=== PATIENT | male | born 1990 | race Two or more races ===

== ENCOUNTER 2023-11-29 11:20 | Outpatient (CLI) | payer SELFPAY ==
[2023-11-29 18:46] LABS: Basophils # 0.1 K/mm3 (0-0.2); Basophils % 1.1 % (0.1-2.0); Eosinophils # 0.1 K/mm3 (0.0-0.4); Eosinophils % 2.1 % (0.1-12.0); Hematocrit 38.9 % (42.0-52.0); Hemoglobin 12.4 g/dL (14.1-18.0); Lymphocytes # 1.2 K/mm3 (0.7-4.5); Lymphocytes % 19.3 % (10-50); Mean Corpuscular HGB Conc 31.7 g/dL (31.8-35.4); Mean Corpuscular Hemoglobin 31.3 pg (27.0-31.2); Mean Corpuscular Volume 98.8 fl (80-94); Mean Platelet Volume 9.1 fl (7.4-10.4); Monocytes # 0.6 K/mm3 (0.1-1.0); Monocytes % 9.5 % (1.7-9.3); Neutrophils # 4.4 K/mm3 (1.8-7.8); Neutrophils % 67.9 % (37.0-80.0); Platelet Count 175 K/mm3 (142-424); Red Blood Count 3.94 M/mm3 (4.60-6.20); Red Cell Distribution Width 14.2 % (11.5-17.5); White Blood Count 6.4 K/mm3 (4.8-10.8)
[2023-11-29 18:50] LABS: Chloride 100 mmol/L (98-107); Potassium 3.4 mmoL/L (3.5-5.1); Sodium 132 mmol/L (136-145)
[2023-11-29 18:53] LABS: Alanine Aminotransferase 43 U/L (12-78); Albumin Level 2.9 g/dl (3.5-5.0); Albumin/Globulin Ratio 0.7 (1.1-1.8); Alkaline Phosphatase 305 U/L (38-126); Anion Gap 12.4 mEq/L (5-15); Aspartate Amino Transferase 89 U/L (17-59); Bilirubin,Total 0.3 mg/dl (0.2-1.3); Blood Urea Nitrogen 3 mg/dl (9-20); Calcium 8.3 mg/dl (8.4-10.2); Carbon Dioxide 23 mmol/L (22.0-30.0); Estimated Glomerular Filt Rate 249 ml/min (>60); GFR (African American) 302 ML/MIN (>60); Globulin 3.9 g/dL (1.3-3.2); Glucose 376 mg/dl (74-100); Total Protein,Serum 6.8 g/dl (6.3-8.2)
[2023-11-29 19:28] LABS: Erythrocyte Sedimentation Rate 68 mm/hr (0-15)
[2023-11-30 09:22] LABS: Hemoglobin A1C 11.5 % (4.0-6.0)
== END 2023-12-01 23:59 | disposition home or self-care (01) ==
PROVIDERS: Podiatrist; PCP Nurse Practitioner; Visit Provider Nurse Practitioner
DX: E11.621 Type 2 diabetes mellitus with foot ulcer (principal); L97.529 Non-pressure chronic ulcer of other part of left foot with unspecified severity; B37.9 Candidiasis, unspecified
CPT/HCPCS: 80053; 83036; 85025; 85651; 86140; 87070; 87205

== ENCOUNTER 2023-11-30 09:39 | Outpatient (CLI) | payer SELFPAY ==
--- NOTE | 2023-11-30 09:48 | XR_ITS ---
FINAL REPORT CLINICAL HISTORY: L DFU, R comparsion COMPARISON: None FINDINGS: RIGHT FOOT: Three views of the right foot were obtained. There is no acute fracture or dislocation. There is mild degenerative change present in the right foot. There are chronic fractures with callus formation in the distal second and third metatarsals. There is severe osteopenia of the distal phalanges of the first and third toes. A pes planus deformity is present. Vascular calcifications are present. IMPRESSION: Chronic fractures with callus formation in the distal second and third metatarsals. Severe osteopenia of the distal phalanges of the first and third toes. Reviewed, Interpreted and Dictated by Nabil Ngo III, MD Transcribed by Debby Salas Authenticated and [facility]
--- NOTE | 2023-11-30 09:48 | XR_ITS ---
FINAL REPORT CLINICAL HISTORY: DFU COMPARISON: None FINDINGS: LEFT FOOT: Three views of the left foot were obtained. There is soft tissue swelling involving the great toe. There is questionable erosion of the distal phalanx of the great toe, as well as marked osteopenia. Osteomyelitis is not excluded, and MRI is suggested for further evaluation as indicated. Vascular calcifications are present. A pes planus deformity is identified. IMPRESSION: Questionable erosion of the distal phalanx of the great toe, difficult to visualize as the patient also has severe osteopenia. Osteomyelitis is not excluded, and MRI is suggested for further evaluation as clinically indicated. Reviewed, Interpreted and Dictated by Nabil Ngo III, MD Transcribed by Debby Salas Authenticated and . [facility]
== END 2023-11-30 23:59 | disposition home or self-care (01) ==
PROVIDERS: Visit Provider Podiatrist
DX: E11.621 Type 2 diabetes mellitus with foot ulcer (principal); L97.529 Non-pressure chronic ulcer of other part of left foot with unspecified severity; L03.116 Cellulitis of left lower limb
CPT/HCPCS: 73630; 87070; 87205

== ENCOUNTER 2024-06-09 13:53 | Emergency (ER) | payer SELFPAY ==
[2024-06-09] VITALS (8 sets, daily range): BP systolic 89–126; BP diastolic 61–93; PULSE 103–116; RESP 15–22; TEMP 36.9; O2SAT 97–100; BMI 26.4
[2024-06-09] MEDS: LACTATED RINGERS 1000ML 1,570 ML 785 ML IV (14:00)
--- NOTE | 2024-06-09 14:20 | HMH.EDGENADL ---
Discharge Plan Disposition Patient Disposition: Xfer Short-Term Hosp Condition: Critical Prescriptions Prescriptions: No Action insulin NPH and regular human 100 unit/mL (70-30) cartridge 25 unit SQ USEASDIRECTD Patient Comments: pt takes 25 units in am and 25 units before dinner Ivone Alvarez mupirocin 2 % ointment 1 applic topical TID Qty: 15 0RF doxycycline hyclate 100 mg tablet 100 mg PO BID Qty: 20 0RF levofloxacin 750 mg tablet 750 mg PO DAILY Qty: 10 0RF Referrals Follow up/Referrals: Lissy Hussein APRN [Primary Care Provider] - See instructions Clinical Impressions Clinical Impression: Seizure, Diabetes Stand Alone Forms Stand Alone Forms: Transfer Record - ED Instructions Patient Instructions: DI for Seizure Disorder -- Adult, DI for Seizure (Not Epilepsy/Seizure Disorder), DI for Seizure Disorder -- Child Print Language Print Language: Botswanan Discharge ED Provider: Lee Mcginnis Adult HPI General Chief complaint: Seizure Stated complaint: SEIZURE Time Seen by Provider: 06/09/24 14:20 Mode of Arrival: EMS Source of Information: Patient and EMS Limitations: Language Barrier Description of Symptoms (Recalled from ER Triage Doc. by RN): EMS [id number] patient was found on the floor, altered. Reports possibly having a seizure and was post ictal on scene. Patient states that he was short of breath yesterday with some chest tightness. Also reports having a cut on his left three months ago and has been treating it himself but believes it may be infected. History of Present Illness HPI narrative: Patient reports with concern for seizure-like activity which occurred unknown amount of time prior to arrival. Patient reportedly has history of seizure disorder and type 2 diabetes. Additional history unable to be obtained at this time. Upon my initial evaluation patient is currently with generalized tonic-clonic seizure. Please note that above description of symptoms, in this electronic medical record under categorization of recalled from ER triage doctor by RN are reflective of an initial nursing assessment, however, is not reflective of my full history and physical exam that was personally taken and clarified. Consequentially, this preceding description of symptoms, which may include the patient's categorized chief complaint in the EMR, do not reflect my personal clinical impression, and the ultimate description of history of present illness and patient stated complaints should be deferred to this section of the note. Unless stated otherwise or congruent with this section of the note, additional signs, symptoms, or incongruence should be interpreted as inaccurate with my clinical impression. Related Data Home Medications ?Medication ?Instructions ?Recorded ?Confirmed insulin NPH-regular human 100 25 unit SQ USEASDIRECTD Diabetes 08/13/23 11/29/23 unit/mL (70-30) subcutaneous cartridge Previous Rx's ?Medication ?Instructions ?Recorded doxycycline hyclate 100 mg tablet 100 mg PO BID #20 tabs 11/29/23 levofloxacin 750 mg tablet 750 mg PO DAILY #10 tabs 11/29/23 mupirocin 2 % topical ointment 1 applic topical TID #15 grams 11/29/23 Allergies Allergy/AdvReac Type Severity Reaction Status Date / Time No Known Allergies Allergy Unverified 06/09/24 15:17 [facility] Disclaimer: The information contained in this section may have been updated after the patient was seen, as this information can be updated by other users. Medical History Cellulitis of left foot Diabetic ulcer of left foot Diabetes Social History Smoking Status: Unknown if ever smoked alcohol intake: current current occupational status: unemployed Travel in the last 8 weeks: None Other Medical History Have you received the Pneumonia Vaccine: No ROS Obtained: Yes other As per HPI Physical Exam General General appearance: other (Unresponsive) Comment: Unresponsive, generalized tonic-clonic activity Head Head exam: atraumatic and normocephalic Eye Eye exam: Present normal appearance Neck Neck exam: Present normal inspection Chest Chest inspection: Present normal inspection and symmetric chest wall rise Respiratory Respiratory exam: Present normal lung sounds bilaterally; Absent respiratory distress Cardiovascular Cardiovascular exam: Present normal rhythm and tachycardia Abdominal Exam Abdominal exam: Present soft Extremities Exam Extremities exam: Present other (Large wound and palpable left ankle effusion, foul-smelling and warm to touch) Neurological Exam Neurological exam: Present other (Generalized tonic-clonic seizure) Skin Skin exam: Present warm and dry Medical Decision Making Medical Records Medical records reviewed: Yes I reviewed the patient's medical records. Screening: Per USPSTF and CDC recommendations, given the prevalence of disease in our region, it is our hospital?s policy to screen for HIV and viral Hepatitis for all patients aged 18 and over and those with ongoing risk factors. Jose Inquiry Pt receiving controlled substance: No Vital Signs: 06/09/24 13:53 06/09/24 14:00 06/09/24 14:31 Temperature 98.4 F Temperature Source Oral Pulse Rate 108 H 116 H Pulse Rate [Radial] 110 H Respiratory Rate 20 15 Blood Pressure 126/86 89/61 L Blood Pressure [Right Arm] 126/86 Blood Pressure Mean [Right Arm] 99 Blood Pressure Source Blood Pressure Source [Right Arm] Automatic Cuff Blood Pressure Position Blood Pressure Position [Right Arm] Sitting 02 Sat by Pulse Oximetry 97 100 100 Oxygen Delivery Method Room Air Oxygen Flow Rate (LPM) 06/09/24 14:33 06/09/24 15:01 06/09/24 15:20 Temperature Temperature Source Pulse Rate 109 H 106 H 103 H Pulse Rate [Radial] Respiratory Rate 21 21 Blood Pressure 109/65 L 110/73 121/81 Blood Pressure [Right Arm] Blood Pressure Mean [Right Arm] Blood Pressure Source Blood Pressure Source [Right Arm] Blood Pressure Position Blood Pressure Position [Right Arm] 02 Sat by Pulse Oximetry 100 100 100 Oxygen Delivery Method Non-Rebreather Non-Rebreather Oxygen Flow Rate (LPM) 06/09/24 15:30 06/09/24 16:58 Temperature 98.4 F Temperature Source Oral Pulse Rate 106 H 106 H Pulse Rate [Radial] Respiratory Rate 22 22 Blood Pressure 119/93 H 119/93 H Blood Pressure [Right Arm] Blood Pressure Mean [Right Arm] Blood Pressure Source Automatic Cuff Blood Pressure Source [Right Arm] Blood Pressure Position Sitting Blood Pressure Position [Right Arm] 02 Sat by Pulse Oximetry 100 Oxygen Delivery Method Non-Rebreather Nasal Cannula Oxygen Flow Rate (LPM) 2 Lab Data Lab Results 06/09/24 14:00: WBC 16.5 H, RBC 4.03 L, Hgb 12.0 L, Hct 39.9 L, MCV 98.9 H, MCH 29.6, MCHC 30.0 L, RDW 13.8, Plt Count 328, MPV 8.7, Neut % (Auto) 89.3 H, Lymph % (Auto) 5.0 L, Cedar % (Auto) 5.3, Eos % (Auto) 0.2, Baso % (Auto) 0.3, Neut # (Auto) 14.8 H, Lymph # (Auto) 0.8, Cedar # (Auto) 0.9, Eos # (Auto) 0.0, Baso # (Auto) 0.0, Total Counted 100, Neutrophils % (Manual) 83 H, Lymphocytes % (Manual) 12, Monocytes % (Manual) 5, Platelet Estimate Slight increase, Poikilocytosis 1+, Anisocytosis 1+, Macrocytosis 2+, Sodium 125 L, Potassium 3.1 L, Chloride 87 L, Carbon Dioxide 5 L*, Anion Gap 36.1 H, BUN 10, Creatinine 0.80, Estimated Creat Clear 119, Estimated GFR 112, Est GFR ( Amer) 136, Glucose 614 H*, Calcium 8.4, Total Bilirubin 0.8, AST 68 H, ALT 42, Alkaline Phosphatase 238 H, Total Protein 7.8, Albumin 3.4 L, Globulin 4.4 H, Albumin/Globulin Ratio 0.8 L 06/09/24 14:18: Phosphorus 1.3 L, Magnesium 2.1, Total Creatine Kinase 274 H, Triglycerides 164 H, HIV 1&2 Antibody Rapid Nonreactive 06/09/24 14:26: VBG pH 7.12 L, VBG pCO2 23.5 L, VBG pO2 33.2, VBG HCO3 7.5 L, VBG Total CO2 8.2 L, VBG O2 Saturation 63.2, VBG Base Excess -21.8 L, VBG Lactic Acid 4.0 H 06/09/24 14:00 06/09/24 14:00 Orders (Tests/Meds): ED MEDICATIONS Discontinued Medications Generic Name Dose Route Start Last Admin Trade Name Freq PRN Reason Stop Dose Admin Piperacillin Sod/Tazobactam 50 mls @ 100 mls/hr 06/09/24 15:14 06/09/24 15:37 Sod 3.375 gm/ Sodium Chloride IV 06/09/24 15:43 100 mls/hr ONCE ONE Administration Clindamycin Phosphate 900 mg in 50 mls @ 100 mls/hr 06/09/24 15:15 06/09/24 15:38 Clindamycin 900mg/50ml D5w Premix IV 06/09/24 15:44 100 mls/hr ONCE ONE Administration Vancomycin/PEG/NADA/Lysine/Water 1.25 gm in 250 mls @ 125 mls/hr 06/09/24 15:30 Vancomycin 1.25gm/250ml (Peg) Premix IV 06/09/24 17:29 ONCE ONE Insulin Human Regular 100 unit 101 mls @ 6.414 mls/hr 06/09/24 15:30 / Sodium Chloride IV 07/09/24 15:29 .[id number] [facility] Protocol 0.1 UNITS/KG/HR Potassium Chloride/Water 100 mls @ 100 mls/hr 06/09/24 15:45 Potassium Chloride 10meq/100ml Ivpb IV 06/09/24 18:44 Q1H [facility] Levetiracetam 2,500 mg/ Sodium 125 mls @ 220 mls/hr 06/09/24 16:00 06/09/24 16:14 Chloride IV 06/09/24 16:34 220 mls/hr ONCE ONE Administration Lactated Ringer's 1,570 mls @ 785 mls/hr 06/09/24 14:00 06/09/24 14:00 Lactated Ringer's 1000 Ml Bag 30 ml/kg infuse over 2 hr (1570 ml) 06/09/24 15:59 785 mls/hr IV Administration .Q2H ONE Lorazepam 2 mg 06/09/24 14:27 06/09/24 14:27 Lorazepam 2mg/Ml Vial IV 06/09/24 14:28 2 mg ONCE ONE Administration Lorazepam 2 mg 06/09/24 15:46 06/09/24 15:46 Lorazepam 2mg/Ml Vial IV 06/09/24 15:47 2 mg ONCE ONE Administration Miscellaneous 1 each 06/09/24 15:15 06/09/24 15:47 Vancomycin Consult Request NOTAPPLIC 07/09/24 15:14 1 each CONSULT PHARMACY [facility] Administration Sodium Chloride 10 ml 06/09/24 14:11 Sodium Chloride 0.9% 10ml Flush Syringe IV 07/09/24 14:10 NEEDED PRN Maintain IV Site Sodium Chloride 10 ml 06/09/24 14:27 Sodium Chloride 0.9% 10ml Vial IV 07/09/24 14:26 NEEDED PRN to Dilute Lorazepam inj Sodium Chloride 10 ml 06/09/24 15:46 Sodium Chloride 0.9% 10ml Vial IV 07/09/24 15:45 NEEDED PRN to Dilute Lorazepam inj ORDERS Category Date Time Status CT head/brain wo con Stat Cat Scan 06/09/24 14:56 Completed XR ankle LT min 3V Stat Exams 06/09/24 14:56 Completed XR foot LT min 3V Stat Exams 06/09/24 14:56 Completed Complete Blood Count Auto Diff Stat Lab 06/09/24 14:00 Completed Comprehensive Metabolic Panel Stat Lab 06/09/24 14:00 Completed Creatine Kinase Stat Lab 06/09/24 14:18 Completed HIV (1&2) Antibody Rapid Stat Lab 06/09/24 14:18 Completed Hep C Ab with Reflex to RNA Stat Lab 06/09/24 14:18 Received Magnesium Stat Lab 06/09/24 14:18 Completed Phosphorous Stat Lab 06/09/24 14:18 Completed Triglycerides Stat Lab 06/09/24 14:18 Completed Blood Culture Stat Micro 06/09/24 14:18 Received VBG [Venous Blood Gas] Stat RT 06/09/24 14:26 Completed Medical Decision Narrative: Patient with history and exam per above presenting for evaluation of seizure, ankle wound Diagnoses considered include electrolyte abnormality, DKA, HHS, septic arthritis, rhabdomyolysis, intracranial hemorrhage, cerebral edema, among others ED workup and treatment included: ED MEDICATIONS Discontinued Medications Generic Name Dose Route Start Last Admin Trade Name Freq PRN Reason Stop Dose Admin Piperacillin Sod/Tazobactam 50 mls @ 100 mls/hr 06/09/24 15:14 06/09/24 15:37 Sod 3.375 gm/ Sodium Chloride IV 06/09/24 15:43 100 mls/hr ONCE ONE Administration Clindamycin Phosphate 900 mg in 50 mls @ 100 mls/hr 06/09/24 15:15 06/09/24 15:38 Clindamycin 900mg/50ml D5w Premix IV 06/09/24 15:44 100 mls/hr ONCE ONE Administration Vancomycin/PEG/NADA/Lysine/Water 1.25 gm in 250 mls @ 125 mls/hr 06/09/24 15:30 Vancomycin 1.25gm/250ml (Peg) Premix IV 06/09/24 17:29 ONCE ONE Insulin Human Regular 100 unit 101 mls @ 6.414 mls/hr 06/09/24 15:30 / Sodium Chloride IV 07/09/24 15:29 .[id number] [facility] Protocol 0.1 UNITS/KG/HR Potassium Chloride/Water 100 mls @ 100 mls/hr 06/09/24 15:45 Potassium Chloride 10meq/100ml Ivpb IV 06/09/24 18:44 Q1H [facility] Levetiracetam 2,500 mg/ Sodium 125 mls @ 220 mls/hr 06/09/24 16:00 06/09/24 16:14 Chloride IV 06/09/24 16:34 220 mls/hr ONCE ONE Administration Lactated Ringer's 1,570 mls @ 785 mls/hr 06/09/24 14:00 06/09/24 14:00 Lactated Ringer's 1000 Ml Bag 30 ml/kg infuse over 2 hr (1570 ml) 06/09/24 15:59 785 mls/hr IV Administration .Q2H ONE Lorazepam 2 mg 06/09/24 14:27 06/09/24 14:27 Lorazepam 2mg/Ml Vial IV 06/09/24 14:28 2 mg ONCE ONE Administration Lorazepam 2 mg 06/09/24 15:46 06/09/24 15:46 Lorazepam 2mg/Ml Vial IV 06/09/24 15:47 2 mg ONCE ONE Administration Miscellaneous 1 each 06/09/24 15:15 06/09/24 15:47 Vancomycin Consult Request NOTAPPLIC 07/09/24 15:14 1 each CONSULT PHARMACY [facility] Administration Sodium Chloride 10 ml 06/09/24 14:11 Sodium Chloride 0.9% 10ml Flush Syringe IV 07/09/24 14:10 NEEDED PRN Maintain IV Site Sodium Chloride 10 ml 06/09/24 14:27 Sodium Chloride 0.9% 10ml Vial IV 07/09/24 14:26 NEEDED PRN to Dilute Lorazepam inj Sodium Chloride 10 ml 06/09/24 15:46 Sodium Chloride 0.9% 10ml Vial IV 07/09/24 15:45 NEEDED PRN to Dilute Lorazepam inj ORDERS Category Date Time Status CT head/brain wo con Stat Cat Scan 06/09/24 14:56 Completed XR ankle LT min 3V Stat Exams 06/09/24 14:56 Completed XR foot LT min 3V Stat Exams 06/09/24 14:56 Completed Complete Blood Count Auto Diff Stat Lab 06/09/24 14:00 Completed Comprehensive Metabolic Panel Stat Lab 06/09/24 14:00 Completed Creatine Kinase Stat Lab 06/09/24 14:18 Completed HIV (1&2) Antibody Rapid Stat Lab 06/09/24 14:18 Completed Hep C Ab with Reflex to RNA Stat Lab 06/09/24 14:18 Received Magnesium Stat Lab 06/09/24 14:18 Completed Phosphorous Stat Lab 06/09/24 14:18 Completed Triglycerides Stat Lab 06/09/24 14:18 Completed Blood Culture Stat Micro 06/09/24 14:18 Received VBG [Venous Blood Gas] Stat RT 06/09/24 14:26 Completed Labs were independently interpreted by me, significant for leukocytosis, acidosis, bicarb 5, hypokalemia to 3.1, CK2 174 Imaging was independently visualized and interpreted by me, significant for no acute findings on CT head, large effusion of left ankle Please refer to radiology report for full details. Symptoms concerning for septic arthritis precipitating DKA. Patient will benefit from higher level of care. He was transferred to [facility] for further management. Procedures Central Line Placement Right Femoral: Time Out Performed: Yes Patient Placed on Monitor/Pulse Ox: Yes MD Prep: mask and gloves Central Line Prep: Chlorhexidine scrub Local Anesthetic: lidocaine 1% Amount of anesthesia used (mL): 5 Ultrasound Used for Placement: Yes Central Line Lumen Inserted: triple Post Procedure: sutured in place and good blood return Patient Tolerated Procedure: well Complications: none Critical Care Critical Care Time Critical Care Time: Yes Attestation: On 06/09/24, the high probability of a clinically significant, sudden or life threatening deterioration of the following system(s) required my full and direct attention, intervention and personal management. The time I documented below is in addition to time spent performing reported procedures but includes the following listed in this critical care notation. Total Time Total Critical Care Time: 60
[2024-06-09] MEDS: LORazepam 2MG/ML VIAL 2 MG IV ×2 (14:27→15:46)
[2024-06-09 14:34] LABS: Albumin Level 3.4 g/dl (3.5-5.0); Basophils % 0.3 % (0.1-2.0); Chloride 87 mmol/L (98-107); Eosinophils % 0.2 % (0.1-12.0); Hematocrit 39.9 % (42.0-52.0); Lymphocytes # 0.8 K/mm3 (0.7-4.5); Mean Corpuscular Hemoglobin 29.6 pg (27.0-31.2); Mean Corpuscular Volume 98.9 fl (80-94); Mean Platelet Volume 8.7 fl (7.4-10.4); Monocytes # 0.9 K/mm3 (0.1-1.0); Monocytes % 5.3 % (1.7-9.3); Neutrophils # 14.8 K/mm3 (1.8-7.8); Neutrophils % 89.3 % (37.0-80.0); Platelet Count 328 K/mm3 (142-424); Potassium 3.1 mmoL/L (3.5-5.1); Red Blood Count 4.03 M/mm3 (4.60-6.20); Red Cell Distribution Width 13.8 % (11.5-17.5); Sodium 125 mmol/L (136-145); White Blood Count 16.5 K/mm3 (4.8-10.8)
[2024-06-09 14:34] LABS: VBG Base Excess -21.8 mmol/L (-2.4-2.3); VBG HCO3 7.5 mmol/L (23-30); VBG Oxygen Saturation 63.2 % (50-70); VBG PO2 33.2 mmol/L (28-40); VBG Total CO2 8.2 mmol/L (23-27)
--- NOTE | 2024-06-09 14:35 | ECG_ITS ---
APPROVED REPORT Exam: Resting ECG HR:106 bpm ECG Measurements Heart Rate 106 AXES MN 136 P 66 QRSd 103 QRS 81 QT 343 T -21 QTc 405 Conclusion SINUS TACHYCARDIA NONSPECIFIC T-WAVE ABNORMALITY ABNORMAL ECG UNCONFIRMED REPORT Electronically signed by : SHYANN PEREZ, 06/11/2024 06:08:03
[2024-06-09 14:36] LABS: Blood Urea Nitrogen 10 mg/dl (9-20); Creatinine Clearance Estimated 119 mL/min (50-200); Estimated Glomerular Filt Rate 112 ml/min (>60); GFR (African American) 136 ML/MIN (>60)
[2024-06-09 14:37] LABS: Alanine Aminotransferase 42 U/L (12-78); Albumin/Globulin Ratio 0.8 (1.1-1.8); Alkaline Phosphatase 238 U/L (38-126); Aspartate Amino Transferase 68 U/L (17-59); Bilirubin,Total 0.8 mg/dl (0.2-1.3); Calcium 8.4 mg/dl (8.4-10.2); Globulin 4.4 g/dL (1.3-3.2); Total Protein,Serum 7.8 g/dl (6.3-8.2)
[2024-06-09 14:38] LABS: MANUAL DIFFERENTIAL MANUAL DIFFERENTIAL (MANUAL DIFF)
[2024-06-09 14:54] LABS: VBG PCO2 23.5 mmol/L (35-51); VBG PH 7.12 mmol/L (7.31-7.41)
[2024-06-09 14:56] LABS: Anisocytosis 1+; Lymphocytes % 12 % (10-50); Macrocytosis 2+; Monocytes % 5 % (2-9); Neutrophils % 83 % (42-76); Platelet Estimate Slight Increase; Poikilocytosis 1+; Total Cells Counted 100
--- NOTE | 2024-06-09 14:56 | XR_ITS ---
PROCEDURE INFORMATION: Exam: XR Left Ankle Exam date and time: 06/09/2024 3:55 PM Age: 33 years old Clinical indication: Other: Wound; Additional info: Swelling TECHNIQUE: Imaging protocol: Radiologic exam of the left ankle. Views: 3 or more views. COMPARISON: 1. CR XR FOOT LT MIN 3V 06/09/2024 3:55 PM 2. CR XR FOOT WT BEARING LT 3V 11/30/2023 10:06 AM FINDINGS: Bones/joints: Bone mineralization is decreased, suggestive of osteopenia. No acute fracture or dislocation is seen. Soft tissues: Marked soft tissue swelling is present around the medial ankle. Vascular calcifications are noted. IMPRESSION: Marked soft tissue swelling around the medial ankle
--- NOTE | 2024-06-09 14:56 | CT_ITS ---
PROCEDURE INFORMATION: Exam: CT Head Without Contrast Exam date and time: 06/09/2024 4:00 PM Age: 33 years old Clinical indication: Condition or disease; Convulsions or seizures; Additional info: Seizure TECHNIQUE: Imaging protocol: Computed tomography of the head without contrast. Radiation optimization: All CT scans at this facility use at least one of these dose optimization techniques: automated exposure control; mA and/or kV adjustment per patient size (includes targeted exams where dose is matched to clinical indication); or iterative reconstruction. COMPARISON: No relevant prior studies available. FINDINGS: Brain: No acute infarct, cerebral edema, or midline shift. There is a 2 mm chronic subdural hematoma around the left cerebral convexity. Cerebral ventricles: No hydrocephalus. Paranasal sinuses: There is no acute sinusitis. Mastoid air cells: Visualized mastoid air cells are well aerated. Orbital cavities: The visualized orbits appear unremarkable. Bones: Unremarkable. No acute fracture. Soft tissues: Unremarkable. IMPRESSION: 1. No acute intracranial abnormality. 2. 2 mm chronic subdural hematoma around the left cerebral convexity
--- NOTE | 2024-06-09 14:56 | XR_ITS ---
PROCEDURE INFORMATION: Exam: XR Left Foot Exam date and time: 06/09/2024 3:55 PM Age: 33 years old Clinical indication: Other: Wound; Additional info: Wound with swelling TECHNIQUE: Imaging protocol: Radiologic exam of the left foot. Views: 3 or more views. COMPARISON: CR XR ANKLE LT MIN 3V 06/09/2024 3:55 PM FINDINGS: Bones/joints: There is destruction of the distal 5th metatarsal and proximal phalanx of the 5th digit, concerning for osteomyelitis and a septic metatarsophalangeal joint. Mild periostitis around this area is noted. Marginal erosions are noted around the interphalangeal joint of the great toe, involving the distal aspect of the proximal phalanx and the proximal aspect of the distal phalanx. This may be the result of prior infection or erosive/inflammatory arthritis. This is new since the previous exam. A significant hallux valgus and bunion deformity is present, also significantly increased from the previous exam. Bone mineralization is decreased, suggestive of osteoporosis. Soft tissues: Marked soft tissue swelling is present around the foot and ankle. Vascular calcifications are present. IMPRESSION: 1. There is destruction of the distal 5th metatarsal and proximal phalanx of the 5th digit, concerning for osteomyelitis and a septic metatarsophalangeal joint. 2. Chronic findings as discussed above.
[2024-06-09 15:08] LABS: Anion Gap 36.1 mEq/L (5-15); Carbon Dioxide 5 mmol/L (22.0-30.0)
--- NOTE | 2024-06-09 15:08 | PC.NURSE ---
[place] from lab call critical on patient. CO2 5 and glucose 614
[2024-06-09 15:11] LABS: Glucose 614 mg/dl (74-100)
[2024-06-09 15:11] LABS: Creatine Kinase 274 U/L (55-170)
[2024-06-09 15:12] LABS: Magnesium 2.1 mg/dl (1.6-2.3)
[2024-06-09 15:30] LABS: Phosphorous 1.3 mg/dl (2.5-4.5)
[2024-06-09 15:31] LABS: HIV (1&2) Antibody Rapid NONREACTIVE (NONREACTIVE)
[2024-06-09] MEDS: PIPERACILLIN/TAZO 3.375 GM in 0.9 % SODIUM CHLORIDE 50 ML IV (15:37)
[2024-06-09] MEDS: CLINDAMYCIN PHOSPHATE/D5W 900 MG/50 ML PIGGYBACK 100 MG IV (15:38)
--- NOTE | 2024-06-09 15:44 | PC.NURSE ---
CALL PLACED WITH FOR TRANSFER, WILL CALL BACK
[2024-06-09] MEDS: VANCOMYCIN CONSULT REQUEST 1 EACH NOTAPPLIC (15:47)
--- NOTE | 2024-06-09 15:54 | PC.NURSE ---
PT GONE TO CT
--- NOTE | 2024-06-09 15:56 | PC.NURSE ---
DR FLOWERS SPEAKING WITH [facility]
[2024-06-09 16:04] LABS: Triglycerides 164 mg/dl (30-150)
--- NOTE | 2024-06-09 16:04 | PC.NURSE ---
Called [facility] for transport of patient. They are confirming for [facility]. Will call back.
[2024-06-09] MEDS: levETIRAcetam 2,500 MG in 0.9 % SODIUM CHLORIDE 100 ML 220 MG IV (16:14)
--- NOTE | 2024-06-09 16:20 | PC.NURSE ---
[facility] HAS LIFTED AND ETA IS 11 MINUTES
--- NOTE | 2024-06-09 16:21 | PC.NURSE ---
HOUSE NOTIFIED OF [facility] ETA
[2024-06-09 18:54] LABS: Reflex Lactic Add Lactic Reflex
[2024-06-10 08:28] LABS: HCV Ab Non Reactive (Non Reactive)
== END 2024-06-09 16:58 | disposition short-term general hospital (02) ==
PROVIDERS: Emergency Provider Emergency Medicine; PCP Nurse Practitioner
DX: R41.82 Altered mental status, unspecified (principal); R07.89 Other chest pain; R06.02 Shortness of breath; R56.9 Unspecified convulsions; E11.9 Type 2 diabetes mellitus without complications
CPT/HCPCS: 70450; 73610; 73630; 80053; 82550; 82803; 83735; 84100; 84478; 85007; 85025; 85027; 86803; 87040; 87389; 93005; 96361; 96365; 96367; 96368; 96375; 99291; C1751; C1894; J1953; J2060; J2543; J7120

== ENCOUNTER 2025-04-10 19:00 | Emergency (ER) | payer SELFPAY ==
[2025-04-10] VITALS (11 sets, daily range): BP systolic 120–184; BP diastolic 85–112; PULSE 77–98; RESP 9–27; TEMP 33.8–36.4; O2SAT 99–100; BMI 21.6; BMI 22.4
--- OUTSIDE RECORDS SUMMARY | 2025-04-10 19:07 | XMS_ITS | Clinical Summary ---
Author Organization [facility] Address [address] [place] [address] Care Team Providers Care Event Av Operator Name Role Phone Provider, No Known Primary Care Provider [phone] Allergies No known active allergies Social History Tobacco Use Types Packs/Day Years Used Date Smoking Tobacco: Never Assessed Abuse Screen Answer Date Recorded Unsafe at Home or Work/School Not on file Feels Threatened by Someone? Not on file 07/2024 Does Anyone Keep You from Co ntacting Others or Doint Things Outside the Home? Not on file 02/02/2024 Physical Sign of Abuse Present Not on file 0 02/02/2024 Housing Stability Answer Date Recorded Current Living Arrangements Not on file 05/23 Potentially Unsafe Housing Conditions Not on alejandro e 06/04/2023 Family and Community Support Answer Ubaldo e Recorded Help with Day-to-Day Activities Not on file 06/04/2023 Lonely or Isolated Not on file 06/04/2023 Employment Answer Date Recorded Do you want help finding or keeping work or a gina b? Not on file 06/04/2023 Disabilities Answer Date Recorded Concentrating, Remembering, or Making Decisions Difficulty Not on file 06/04/2023 Doing Errands Independently Difficulty Not on fi le 06/04/2023 Education Answer Date Recorded Help with school or training? Not on file Preferred Language Not on file 06/04/2023 Sex and Gender Information Value Date Recorded Sex Assigned at Not on file Legal Sex Male 11:53 AM EDT Gender Identity Not on file Sexual Orientation Not on file Last Filed Vital Signs Vital Sign Reading Time Taken Comments Blood Pressure 134/93 01/25/2023 11:54 AM EDT Pulse 92 01/25/2023 3:23 PM EDT Temperature 37.5 C (99.5 F) 01/25/2023 11:54 AM EDT Respiratory Rate 18 01/25/2023 11:54 AM EDT Oxygen Saturation 97% 01/25/2023 3:23 PM EDT Inhaled Oxygen Concentration - - Weight 59 kg (130 lb) 01/25/2023 11:54 AM EDT Height 162.6 cm (5' 4 ) 01/25/2023 11:54 AM EDT Body Mass Index 22.31 01/25/2023 11:54 AM EDT Plan of Treatment Health Maintenance Due Date Last Done Comments ANNUAL PHYSICAL 1991 TDAP/TD VACCINES (2 - Td or Tdap) 08/23/2021 08/23/2011 COVID-19 Vaccine (2023- season) 2024 INFLUENZA VACCINE 05/23/2025 08/21/2015 HEPATITIS C SCREENING Completed 06/09/2024 HEMOGLOBIN A1C Discontinued 09/26/2024, 05/23, 01/26/2023, Additional history exists Pneumococcal Vaccine 0-49 Aged Out No longer eligible based on patient's age to complete this topic Insurance [employer] [place]ICAID [place] Care Teams Event Av Operator Relationship Specialty Start Date End Date Provider, No Known [facility] [place] [address] PCP - General 01/25/23
--- OUTSIDE RECORDS SUMMARY | 2025-04-10 19:07 | XMS_ITS ---
Author Organization [facility] Address [address] [place] [address] Care Team Providers Care Product Responsibility Liaison Name Role Phone Ashok Baxter MD Primary Care Provider Transitional Care Management Status:Closed (Closed) Start date:01/22/2025 Enrollment reason:Identified using hospital discharge data End date:02/21/2025 Close reason:Patient graduated Overview This episode type is for outpatient care managers enrolling patients in the [facility] Transitional Care Management program. Continued Care and Services Coordination
--- OUTSIDE RECORDS SUMMARY | 2025-04-10 19:07 | XMS_ITS | Clinical Summary ---
Author Organization [facility] Address [address] [place] [address] Phone Care Team Providers Care High Worker Name Role Phone Deion Albright MD Primary Care Provider [phone] Deion Albright MD Unavailable [phone] Allergies No known active allergies Medications Blood Sugar Diagnostic Misc Strip 1 Strip by Misc.(Non-Drug; Combo Route) route 3 times daily (before meals). 1 box 11 04/24/20 16 Active Blood-Glucose Sensor (DEXCOM G7 SENSOR) Misc Device Use as directed for continuous blood glucose monitoring 4 times daily (before meals and nightly). 3 Each 02/10/2023 1:03 PM EDT 02/11/20 23 Active Alcohol Swabs Top Pads, Medicated Prepare site by wiping skin vigorously prior to testing blood glucose or injecting insulin. 100 Each 2 02/10/2023 1:03 PM EDT 02/11/20 23 Active lancets 33 gauge Misc Misc Use as directed to test blood sugar 4 times daily (before meals and bedtime). 100 Each 2 02/10/2023 1:03 PM EDT 02/11/20 23 Active Blood-Glucose Meter,Continuous Misc Misc Use as directed for continuous blood glucose monitoring 4 times daily (before meals and nightly). 1 Each 02/10/2023 1:03 PM EDT 02/11/20 Active Insulin Syringe-Needle U-100 0.5 mL 30 gauge x 1/2 Misc Syringe Use as directed to inject insulin 4 times daily. 100 Each 02/10/2023 1:03 PM EDT 02/11/20 Active BD INSULIN SYRINGE ULTRA-FINE 0.5 mL 30 gauge x 1/2 Misc Syringe 02/11/20 Active midodrine (PROAMATINE) 5 mg Oral Tablet Take 5 mg by mouth. 06/21/20 Active Melatonin 3 mg Oral Tablet Take 3 mg by mouth nightly as needed. Active calcium carbonate (TUMS) 200 mg calcium (500 mg) Oral Tablet, Chewable Take 1 Tablet by mouth 3 times daily. Active magnesium oxide (MAG-OX) 400 mg (241.3 mg magnesium) Oral Tablet Take 400 mg by mouth daily. Active insulin glargine U-100 (LANTUS) 100 unit/mL SubQ SolutionIndicatio ns:Type 1 diabetes mellitus with hyperglycemia (HCC) Subcutaneous (Inject under the skin) 20 Units nightly. 07/11/20 24 Active insulin aspart U-100 (NOVOLOG) 100 unit/mL SubQ SolutionIndicatio ns:Type 1 diabetes mellitus with hyperglycemia (HCC) Using SSI, 9 U with meals + correction 07/11/20 24 Active cyclobenzaprine (FLEXERIL) 10 mg Oral TabletIndications :Thoracic myofascial strain, subsequent encounter Take 1 Tablet by mouth every 8 hours as needed for Muscle spasms. 90 Tablet 5 08/09/20 24 Active gabapentin (NEURONTIN) 300 mg Oral CapsuleIndication s:Phantom limb pain (HCC) Take 1 Capsule by mouth 3 times daily. 90 Capsule 5 08/09/20 24 Active acetaminophen (TYLENOL) 500 mg Oral TabletIndications :Thoracic myofascial strain, subsequent encounter Take 2 Tablets by mouth every 6 hours as needed for Pain. 120 Tablet 5 08/09/20 24 Active levETIRAcetam (KEPPRA) 1,000 mg Oral TabletIndications :Seizure disorder (HCC) Take 2 Tablets by mouth 2 times daily. 120 Tablet 5 08/09/20 24 Active ergocalciferol (VITAMIN D) 1,250 mcg (50,000 unit) Oral CapsuleIndication s:Vitamin D deficiency Take 1 Capsule by mouth once a week. 4 Capsule 5 08/09/20 24 Active lidocaine (LIDODERM) 5 % Top Adhesive Patch, Medicated 08/14/20 24 Active neomycin-polymyxi n-hydrocortisone (CORTISPORIN) 3.5-10,000-1 mg/mL-unit/mL-% Otic Drops, SuspensionIndicat ions:Otalgia, right ear Place 4 Drops into both ears 2 times daily. 10 mL 09/05/19 25 Active diclofenac (VOLTAREN) 75 mg Oral Tablet, Delayed Release (E.C.)Indications :Cervical radiculitis,DDD (degenerative disc disease), cervical Take 1 Tablet by mouth 2 times daily as needed for Pain. 60 Tablet 09/07/19 25 Active omeprazole (PRILOSEC) 20 mg Oral Capsule, Delayed Release(E.C.) Take 1 Capsule by mouth every morning (before breakfast). 30 Capsule 09/12/19 25 Active Active Problems Patient Care Coordination No te Formatting of this note migh t be different from the original. [facility] - Jarett Arredondo MD Interventional Pain Protocol: Jose report completed (EVERY 3 MONTHS) ( 10/17/2024 ) Pharmacy: [facility] [phone] Spine Center additional info (Transportation, WC, Compound, No Show, PPW) Problem Noted Date Diagnosed Date Hypocalcemia 01/19/2025 Assessment & Plan (01/19/2025 12:52 PM EDT): repleted Diabetic ketoacidosis withou t coma associated with type 1 diabetes mellitus 01/17/2025 Assessment & Plan (01/19/2025 12:52 PM EDT): DKA - Resolved - Patient with Hx of DM1 on insulin for the past 15 years - DKA in setting of noncompliance with patient missing insulin dose - Labs on admission significant for BG at 624, Bet-Hydroxybutyrate > 8 , Biarb at < 6 and AG at > 40 - S/p IV fluids - Electrolytes repleted - S/p Insulin gttes, switched to SQ basal insulin - Monitor finger stick - Diabetes education - Continue DKA protocol in the ICU. Assessment & Plan (01/18/2025 3:38 PM EDT): DKA - Resolved - Patient with Hx of DM1 on insulin for the past 15 years - DKA in setting of noncompliance with patient missing insulin dose - Labs on admission significant for BG at 624, Bet-Hydroxybutyrate > 8 , Biarb at < 6 and AG at > 40 - S/p IV fluids - Electrolytes repleted - S/p Insulin gttes, switch to SQ basal insulin - Monitor finger stick - Diabetes education - BG at 389 with bicarb at 18 and gap at 17 in p.m. BMP. - Continue DKA protocol in the ICU. Assessment & Plan (01/17/2025 9:35 PM EDT): DKA - Patient with Hx of DM1 on insulin for the past 15 years - DKA in setting of noncompliance with patient missing insulin dose - Labs on admission significant for BG at 624, Bet-Hydroxybutyrate > 8 , Biarb at < 6 and AG at > 40 - IV fluids with NS, add DW5 when BG is equal or less than 200 - Potassium repletion if K < 5.3 mEq/L - Insulin gttes, switch to SQ basal insulin when patient is able to eat, AG < 12 and Bicarb at or > 15 mEq/L Hold if K is less than 3.3 mEq/L - Will order Bicarb IV if pH equal or less than 6.9 - Will replete Phos as needed - Will monitor electrolytes - Monitor finger stick - Diabetes education Thoracic myofascial strain 08/09/2024 Assessment & Plan (08/09/2024 9:02 AM EST): Suspect exacerbated by ongoing overuse of upper back/arm muscles as becomes accustomed to using and 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, should ultimately harden to this pain Ok to cont flexeril 10 mg TID Tolerates well Ok to cont tylenol 1000 mg QID (no longer drinking alcohol) No longer requires oxycodone Phantom limb pain 08/09/2024 Assessment & Plan (08/09/2024 9:03 AM EST): Ok to continue gabapetin 300 TID Appears to tolerate well Jose checked manually, as expected Type 1 diabetes mellitus with hyperglycemia 06/23 Overview (07/11/2024): Repeated admits for DKA in past Poorly compliant Sees Endocrinology at [facility], high risk clinic Assessment & Plan (01/19/2025 12:52 PM EDT): DKA - Resolved - Patient with Hx of DM1 on insulin for the past 15 years - DKA in setting of noncompliance with patient missing insulin dose - Labs on admission significant for BG at 624, Bet-Hydroxybutyrate > 8 , Biarb at < 6 and AG at > 40 - S/p IV fluids - Electrolytes repleted - S/p Insulin gttes, switched to SQ basal insulin - Monitor finger stick - Diabetes education - Continue DKA protocol in the ICU. Assessment & Plan (01/18/2025 3:38 PM EDT): DKA - Resolved - Patient with Hx of DM1 on insulin for the past 15 years - DKA in setting of noncompliance with patient missing insulin dose - Labs on admission significant for BG at 624, Bet-Hydroxybutyrate > 8 , Biarb at < 6 and AG at > 40 - S/p IV fluids - Electrolytes repleted - S/p Insulin gttes, switch to SQ basal insulin - Monitor finger stick - Diabetes education - BG at 389 with bicarb at 18 and gap at 17 in p.m. BMP. - Continue DKA protocol in the ICU. Assessment & Plan (01/17/2025 9:35 PM EDT): DKA - Patient with Hx of DM1 on insulin for the past 15 years - DKA in setting of noncompliance with patient missing insulin dose - Labs on admission significant for BG at 624, Bet-Hydroxybutyrate > 8 , Biarb at < 6 and AG at > 40 - IV fluids with NS, add DW5 when BG is equal or less than 200 - Potassium repletion if K < 5.3 mEq/L - Insulin gttes, switch to SQ basal insulin when patient is able to eat, AG < 12 and Bicarb at or > 15 mEq/L Hold if K is less than 3.3 mEq/L - Will order Bicarb IV if pH equal or less than 6.9 - Will replete Phos as needed - Will monitor electrolytes - Monitor finger stick - Diabetes education Assessment & Plan (08/09/2024 9:04 AM EST): Endocrinology at managing Assessment & Plan (07/11/2024 12:48 PM EST): Will try for a freestyle dallin or dexcom Refer to Endocrinology with [facility] here at [place], easier to travel here than [place]. Will keep his appt at for now unless he can get in sooner with us Orders: AMB REFERRAL TO ENDOCRINOLOGY insulin glargine U-100 (LANTUS) 100 unit/mL SubQ Solution; Subcutaneous (Inject under the skin) 20 Units nightly. insulin aspart U-100 (NOVOLOG) 100 unit/mL SubQ Solution; Using SSI, 9 U with meals + correction S/P BKA (below knee amputation), left 07/11/2024 Overview (07/11/2024): 06/16/2024 emergent BKA for diabetic ulcer/gangrene/sepsis vascular surgery Assessment & Plan (01/19/2025 12:52 PM EDT): No acute issues Assessment & Plan (01/18/2025 7:07 AM EDT): No acute issues Assessment & Plan (01/17/2025 9:35 PM EDT): No acute issues Assessment & Plan (08/09/2024 9:05 AM EST): vascular surgery managing Seeing PT Ultimately will receive prosthetic I presume Assessment & Plan (07/11/2024 12:48 PM EST): Refer to vascular surgery with [facility] Easier than traveling to [place] Is no longer requiring oxycodone, has 2 left at home, using tylenol instead Does appear to have some phantom pain and a DM neuropathy of LLE, if pain persisting or worsening, would consider gabapentin trial. 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 component as well Assessment & Plan (01/19/2025 12:52 PM EDT): Continue with [facility] Assessment & Plan (01/18/2025 7:07 AM EDT): Continue with [facility] Assessment & Plan (01/17/2025 9:35 PM EDT): Continue with [facility] Assessment & Plan (08/09/2024 9:02 AM EST): Stable on keppra Refilled today Assessment & Plan (07/11/2024 12:48 PM EST): On keppra Stable Hx of traumatic subdural hematoma 02/07/2023 Hypertriglyceridemia 04/17/2016 Hyperlipidemia 08/21/2015 Assessment & Plan (01/19/2025 12:52 PM EDT): Continue with home medication Assessment & Plan (01/18/2025 7:07 AM EDT): Continue with home medication Assessment & Plan (01/17/2025 9:35 PM EDT): Continue with home medication Alcohol-induced acute pancreatitis Resolved Problems Problem Noted Date Diagnosed Date Resolved Date Cervicalgia 07/11/2024 08/09/2024 Assessment & Plan (07/11/2024 12:48 PM EST): On flexeril + lidocaine Present for about a month now [facility] felt most likely a trapezius injury or paraspinal ligament injury Moderate protein-calorie malnutrition 04/10/2023 07/11/2024 Diabetic ketoacidosis withou t coma associated with diabetes mellitus due to underlying condition 04/08/2023 07/11/2024 Electrolyte abnormality 04/08/202306/23 Hyponatremia 04/08/2023 07/11/2024 Other headache syndrome 02/08/202306/23 MY (acute kidney injury) 04/19/2016 ATN (acute tubular necrosis) 04/19/2016 07/11/2024 Acidosis 04/19/2016 07/11/2024 Hypophosphatemia 04/19/2016 07/11/2024 Iron deficiency anemia due t o chronic blood loss 04/19/2016 07/11/2024 Thrombocytopenia 04/19/2016 07/11/2024 Type 2 diabetes mellitus with hyperglycemia 04/17/2016 07/11/2024 Diabetic ketoacidosis withou t coma associated with type 2 diabetes mellitus 04/17/2016 07/11/2024 Hyperlipidemia 04/17/2016 07/11/2024 Acute pancreatitis 04/17/2016 4 Severe dehydration 04/17/2016 4 Atelectasis 04/17/2016 07/11/2024 Sinus tachycardia 04/17/2016 07/11/2024 Acute pancreatitis 04/17/2016 6 Diabetes mellitus 08/21/2015 07/11/2024 Diabetic ketoacidosis withou t coma associated with type 1 diabetes mellitus 08/21/2015 07/11/2024 Noncompliance 08/21/2015 07/11/2024 Dehydration 08/21/2015 07/11/2024 Uncontrolled type 2 diabetes mellitus with microalbuminuria, without long-term current use of insulin 07/11/2024 Encounters Date Type Department Care Team Description 01/22/2025 Patient Outreach [facility]agment [phone] [place] [address] Gail Hall RN Hospital Follow Up; CM- Consultation 01/17/2025 3:15 PM EDT - 01/19/2025 3:10 PM EDT Hospital Encounter [facility] ICU [address] [address] Jd Cifuentes MD Isma, Daniela Dickson MD Diabetic ketoacidosis without coma associated with type 1 diabetes mellitus (HCC) (Primary Dx) Discharge Disposition: Home or Self Care 01/17/2025 Travel from Last 3 Months Immunizations Immunization Administration Dates Next Due Influenza Vaccine Quadrivalent PF 08/21/2015 Tdap 08/23/2011 Surgical History Surgery Date Site/Laterality Comments ORTHOPEDIC SURGERY ARM SURGERY Medical History Medical History Date Comments Abscess Subdural hematoma (HCC) Diabetes mellitus (HCC) Hyperlipidemia Kidney failure follows with Dr. Blackburn Family History Medical History Relation Name Comments Diabetes Mother High Blood Pressure Mother Kidney Disease Mother Diabetes Paternal Grandmother Relation Name Status Comments Mother Paternal Grandmother Social History Tobacco Use Types Packs/Day Years Used Date Smoking Tobacco: Never Passive Smoke Exposure: Never Smokeless Tobacco: Never Tobacco Cessation:Counseling Given: Not Answered Alcohol Use Standard Drinks/Week Comments Not Currently 0 (1 standard drink = 0.6 oz pur e alcohol) rarely [facility] Utilities Answer Date Recorded In the past 12 months has e electric, gas, oil, or water company threatened to shut off services in your home? No 01/18/2025 Overall Financial Resource Strain (CARDIA) Answe r Date Recorded How hard is it for you to pa y for the very basics like food, housing, medical care, and heating? Not hard at all 01/18/2025 PHQ-2 Answer Date Recorded PHQ-2 Total Score 0 01/18/2025 [facility] [place] [facility] Occupat ional Health - Occupational Stress Questionnaire Answer Date Recorded Do you feel stress - tense, restless, nervous, or anxious, or unable to sleep at night because your mind is troubled all the time - these days? Only a little 01/18/2025 Exercise Vital Sign Answer Date Recorde d On average, how many days pe r week do you engage in moderate to strenuous exercise (like a brisk walk)? 7 days 01/18/2025 On average, how many minutes do you engage in exercise at this level? 20 min 01/18/2025 Hunger Vital Sign Answer Date Recorded Within the past 12 months, y ou worried that your food would run out before you got the money to buy more. Never true 01/19/20 25 Within the past 12 months, t he food you bought just didn't last and you didn't have money to get more. Never true 01/18/2025 PRAPARE - Transportation Answer Date Re corded In the past 12 months, has l ack of transportation kept you from medical appointments or from getting medications? No 03/23 In the past 12 months, has l ack of transportation kept you from meetings, work, or from getting things needed for daily living? No 04/09/2023 [facility] IP Transportation Answer D ate Recorded In the past 12 months, has l ack of reliable transportation kept you from medical appointments, meetings, work or from getting things needed for daily living? No 01/18/2025 Sex and Gender Information Value Date Recorded Sex Assigned at Not on file Legal Sex Male 3:40 AM EDT Gender Identity Not on file Sexual Orientation Not on file Obstetrics History Last Filed Vital Signs Vital Sign Reading Time Taken Comments Blood Pressure 102/81 01/19/2025 1:21 PM EDT Pulse 102 01/19/2025 1:00 PM EDT Temperature 37.2 C (98.9 F) 01/19/2025 11:40 AM EDT Respiratory Rate 12 01/19/2025 1:00 PM EDT Oxygen Saturation 99% 01/19/2025 11:40 AM EDT Inhaled Oxygen Concentration - - Weight 49.9 kg (110 lb 0.2 oz) 01/19/2025 3:40 A M EDT Height 157.5 cm (5' 2 ) 01/17/2025 3:23 PM EDT Body Mass Index 20.12 01/17/2025 3:23 PM EDT Plan of Treatment Health Maintenance Due Date Last Done Comments Annual Wellness Exam 1994 Diabetic Eye Exam 2009 Kidney Health: uACR 2009 Hepatitis B Vaccine (1 of 3 - 19+ 3-dose series) 2010 Pneumococcal Vaccine 0-49 (1 of 2 - PCV) 2010 DTaP/TDaP/Td (2 - Td or Tdap) 08/23/2021 08/23/2011 COVID-19 Vaccine ( season) 2024 Influenza Vaccine (#1) 2025 08/21/2015 Hemoglobin A1c 07/21/2025 01/18/2025, 02/0 11/2024, 06/09/2024, Additional history exists Lipids 01/18/2026 01/18/2025, 08/02/2023, 04/22/2016, Additional history exists Kidney Health: eGFR 01/19/2026 01/19/2025, 01/18/2025, 01/18/2025, Additional history exists Meningococcal B Vaccine Aged Out No l onger eligible based on patient's age to complete this topic Goals Goal Patient Goal Type Associated Problems Recent Progress Patient-Stated? Author Blood Pressure < 140/90 Blood Pressure 102/81(2024 1:21 PM EDT) No Vanda [place] [facility] BMI (Calculated) < 30 General 23.8(01/18/20 3:23 PM EDT) No Vanda [place] [facility] Maintain a healthy diet, exercise regularly and maintain an ideal body weight General No Vanda [place] [facility] HEMOGLOBIN A1C < 7.0 Result Component 11.2(01/19/20 6:26 AM EDT) No Vanda [place] [facility] Procedures Procedure Name Priority Date/Time Associated Diagnosis Comments GLUCOSE METER POC Routine 01/19/2025 12: 54 PM EDT GLUCOSE METER POC Routine 01/19/2025 9:1 2 AM EDT ECG AND WAVEFORMS - TELEMETRY Routine 01/19/2025 7:50 AM EDT GLUCOSE METER POC Routine 01/19/2025 5:3 0 AM EDT CALCIUM, IONIZED Routine 01/19/2025 5:05 AM EDT MAGNESIUM LEVEL Timed 01/19/2025 4:10 AM EDT PHOSPHORUS LEVEL Timed 01/19/2025 4:10 AM EDT CBC Early AM 01/19/2025 4:10 AM EDT BASIC METABOLIC PANEL Early AM 01/19/2025 4:10 AM EDT GLUCOSE METER POC Routine 01/19/2025 12: 41 AM EDT GLUCOSE METER POC Routine 01/18/2025 8:4 6 PM EDT ECG AND WAVEFORMS - TELEMETRY Routine 01/18/2025 7:52 PM EDT PHOSPHORUS LEVEL STAT 01/18/2025 5:35 PM EDT MAGNESIUM LEVEL STAT 01/18/2025 5:35 PM EDT BASIC METABOLIC PANEL STAT 01/18/2025 5:35 PM EDT GLUCOSE METER POC Routine 01/18/2025 5:2 5 PM EDT BASIC METABOLIC PANEL STAT 01/18/2025 2:51 PM EDT MAGNESIUM LEVEL Routine 01/18/2025 2:51 PM EDT PHOSPHORUS LEVEL STAT 01/18/2025 2:51 PM EDT GLUCOSE METER POC Routine 01/18/2025 2:4 6 PM EDT GLUCOSE METER POC Routine 01/18/2025 1:0 9 PM EDT SCANNED EKG 01/18/2025 9:40 AM EDT GLUCOSE METER POC Routine 01/18/2025 8:5 5 AM EDT STAPHYLOCOCCUS AUREUS SCREEN Routine 01/18/2025 8:20 AM EDT [id number] Routine 01/18/2025 8:2 0 AM EDT ECG AND WAVEFORMS - TELEMETRY Routine 01/18/2025 8:13 AM EDT BLOOD CULTURE (NO STAIN) Routine 01/18/2025 8:13 AM EDT BLOOD CULTURE (NO STAIN) Routine 01/18/2025 8:12 AM EDT GLUCOSE METER POC Routine 01/18/2025 6:3 0 AM EDT ELECTROLYTES WHOLE BLOOD Timed 01/18/2025 6:27 AM EDT HEMOGLOBIN A1C Routine 01/18/2025 6:26 AM EDT CBC Early AM 01/18/2025 6:26 AM EDT GLUCOSE METER POC Routine 01/18/2025 5:2 4 AM EDT LIPID SCREEN Routine 01/18/2025 5:14 AM EDT BASIC METABOLIC PANEL Early AM 01/18/2025 5:14 AM EDT MAGNESIUM LEVEL Timed 01/18/2025 5:14 AM EDT PHOSPHORUS LEVEL Timed 01/18/2025 5:14 AM EDT PHOSPHORUS LEVEL Timed 01/18/2025 5:13 AM EDT MAGNESIUM LEVEL Timed 01/18/2025 5:13 AM EDT ELECTROLYTES WHOLE BLOOD Timed 01/18/2025 5:13 AM EDT GLUCOSE METER POC Routine 01/18/2025 4:2 8 AM EDT GLUCOSE METER POC Routine 01/18/2025 3:2 5 AM EDT ELECTROLYTES WHOLE BLOOD Timed 01/18/2025 2:40 AM EDT GLUCOSE METER POC Routine 01/18/2025 2:2 2 AM EDT GLUCOSE METER POC Routine 01/18/2025 1:1 9 AM EDT GLUCOSE METER POC Routine 01/18/2025 12: 08 AM EDT MAGNESIUM LEVEL Timed 01/18/2025 12:04 AM EDT PHOSPHORUS LEVEL Timed 01/18/2025 12:0 4 AM EDT ELECTROLYTES WHOLE BLOOD Timed 01/18/2025 12:04 AM EDT STREP A DNA Routine 01/18/2025 12:04 AM EDT GLUCOSE METER POC Routine 01/17/2025 10: 38 PM EDT MAGNESIUM LEVEL Timed 01/17/2025 10:29 PM EDT PHOSPHORUS LEVEL Timed 01/17/2025 10:2 9 PM EDT ELECTROLYTES WHOLE BLOOD Timed 01/17/2025 10:29 PM EDT GLUCOSE METER POC Routine 01/17/2025 9:3 0 PM EDT ECG AND WAVEFORMS - TELEMETRY Routine 01/17/2025 8:33 PM EDT GLUCOSE METER POC Routine 01/17/2025 8:2 3 PM EDT ELECTROLYTES WHOLE BLOOD Timed 01/17/2025 8:23 PM EDT URINALYSIS REFLEX STAT 01/17/2025 8:1 9 PM EDT UA W/REFLEX TO CULTURE STAT 8:19 PM EDT EXTRA DONG URINE CX STAT 01/17/2025 8 :19 PM EDT GLUCOSE (FASTING OR RANDOM) Routine 01/17/2025 6:57 PM EDT MAGNESIUM LEVEL Timed 01/17/2025 6:57 PM EDT PHOSPHORUS LEVEL Timed 01/17/2025 6:57 PM EDT ELECTROLYTES WHOLE BLOOD Timed 01/17/2025 6:57 PM EDT ADMIT STAT 01/17/2025 5:15 PM EDT PHOSPHORUS LEVEL Add-On 01/17/2025 4:28 PM EDT BETA-HYDROXYBUTYRIC ACID Routine 01/17/2025 4:28 PM EDT MAGNESIUM LEVEL STAT 01/17/2025 4:28 PM EDT ALCOHOL MEDICAL STAT 01/17/2025 4:28 PM EDT BLOOD GAS, VENOUS STAT 01/17/2025 4:2 8 PM EDT LIPASE LEVEL STAT 01/17/2025 4:28 PM EDT COMPREHENSIVE METABOLIC PANEL STAT 01/17/2025 4:28 PM EDT CBC STAT 01/17/2025 4:28 PM EDT XR CHEST AP PORTABLE STAT 01/17/2025 4:12 PM EDT EK EKG 12 LEAD STAT 01/17/2025 3:40 PM EDT GLUCOSE METER POC Routine 01/17/2025 3:2 7 PM EDT from Last 3 Months Results * (ABNORMAL) GLUCOSE METER POC (01/19/2025 12:54 PM EDT) Only the most recent of20 resultswithin the time period is included. [facility] Glucose Meter POC 126(H) 70 - 100 mg/dL 01/19/2025 12:57 PM EDT [facility] Sample Type Capillary 01/19/2025 12:57 PM EDT [facility] Patient Status Non-Critical Patient 01/19/2025 12:57 PM EDT [facility] Blood BLOOD SPECIMEN / Unknown 01/19/2025 12:54 PM EDT 01/19/2025 12:57 PM EDT Daniela Rogers MD POINT OF CARE TEST ORDERABLES Final Result Performing Organization Address [facility] Co de Phone Number [facility] [address] [place] [phone] * ECG AND WAVEFORMS - TELEMETRY (01/19/2025 7:50 AM EDT) Only the most recent of4 resultswithin the time period is included. [facility] ECG INTERPRET NSR [facility] 01/19/2025 7:50 AM EDT Narrative [facility] - 01/19/2025 7:50 AM EDT See Clinical Report link for waveform capture Unknown Provider POINT OF CARE CARDIOLOGY Final Result Performing Organization Address [facility] Co de Phone Number [facility] [address] [place] [address] * (ABNORMAL) IONIZED CALCIUM - INPATIENT (01/19/2025 5:05 AM EDT) [facility] Calcium Ionized 0.96(L) 1.12 - 1.32 mmol/L 01/19/2025 5:09 AM EDT [facility] Blood VENOUS BLOOD / Unknown Venipuncture / Unknown 01/19/2025 5:05 AM EDT 01/19/2025 5:07 AM EDT Daniela Rogers MD CHEMISTRY ORDERABLES Final Res ult Performing Organization Address City/[facility]/ZIP Co de Phone Number [facility] [address] [facility] [place] [address] * (ABNORMAL) CBC (01/19/2025 4:10 AM EDT) Only the most recent of3 resultswithin the time period is included. WBC 3.7 3.7 - 10.3 x10(3)/mcL 01/19/2025 4:21 AM EDT [facility] RBC 3.11(L) 4.60 - 6.10 x10(6)/mcL 01/19/2025 4:21 AM EDT [facility] Hgb 9.5(L) 13.7 - 17.5 g/dL 01/19/2025 4:21 AM EDT [facility] Hct 27.0(L) 40.0 - 51.0 % 01/19/2025 4:21 AM EDT [facility] MCV 86.8 80.0 - 100.0 fL 01/19/2025 4:21 AM EDT [facility] MCH 30.5 26.0 - 34.0 pg 01/19/2025 4:21 AM EDT [facility] MCHC 35.2 30.7 - 35.5 g/dL 01/19/2025 4:21 AM EDT [facility] RDW 12.8 <=14.9 % 01/19/2025 4:21 AM EDT [facility] Platelet 77(L) 155 - 369 x10(3)/mcL 01/19/2025 4:21 AM EDT [facility] MPV 9.0 8.8 - 12.5 fL 01/19/2025 4:21 AM EDT [facility] Blood VENOUS BLOOD / Unknown Venipuncture / Unknown 01/19/2025 4:10 AM EDT 01/19/2025 4:15 AM EDT Jennifer Jj MOBILE BATTERY TECHNICIAN HEMATOLOGY ORDERABLES Final Result Performing Organization Address [facility]/ZIP Co de Phone Number [facility] [address] [place] [address] [phone] * PHOSPHORUS LEVEL (01/19/2025 4:10 AM EDT) Only the most recent of9 resultswithin the time period is included. [facility] Phosphorus 2.5 2.5 - 4.5 mg/dL 01/19/2025 4:39 AM EDT [facility] Blood VENOUS BLOOD / Unknown Venipuncture / Unknown 01/19/2025 4:10 AM EDT 01/19/2025 4:15 AM EDT Jennifer Jj MOBILE BATTERY TECHNICIAN CHEMISTRY ORDERABLES Final R [facility] Performing Organization Address City/[facility]/ZIP Co de Phone Number [facility] [address] [place] [phone] * MAGNESIUM LEVEL (01/19/2025 4:10 AM EDT) Only the most recent of9 resultswithin the time period is included. [facility] Magnesium 1.8 1.6 - 2.4 mg/dL 01/19/2025 4:39 AM EDT [facility] Blood VENOUS BLOOD / Unknown Venipuncture / Unknown 01/19/2025 4:10 AM EDT 01/19/2025 4:15 AM EDT Jennifer Jj MOBILE BATTERY TECHNICIAN CHEMISTRY ORDERABLES Final R [facility] Performing Organization Address City/[facility]/ZIP Co de Phone Number [facility] [address] [place] [phone] * (ABNORMAL) BASIC METABOLIC PANEL (01/19/2025 4:10 AM EDT) Only the most recent of4 resultswithin the time period is included. [facility] Sodium 131(L) 136 - 145 mmol/L 01/19/2025 4:39 AM EDT [facility] Potassium 4.3 3.5 - 5.0 mmol/L 01/19/2025 4:39 AM EDT [facility] Chloride 97(L) 98 - 107 mmol/L 01/19/2025 4:39 AM EDT [facility] Total CO2 25 22 - 29 mmol/L 01/19/2025 4:39 AM EDT [facility] Anion Gap 9 7 - 16 mmol/L 01/19/2025 4:39 AM EDT [facility] Calcium 6.9(L) 8.6 - 10.4 mg/dL 01/19/2025 4:39 AM EDT [facility] Glucose Lvl 208(H) 70 - 99 mg/dL 01/19/2025 4:39 AM EDT [facility] BUN 4(L) 6 - 20 mg/dL 01/19/2025 4:39 AM EDT [facility] Creatinine 0.32(L) 0.67 - 1.30 mg/dL 01/19/2025 4:39 AM EDT [facility] eGFR (CKD-EPIcr 2020) 158 >=60 mL/min/1.7 3 m2 01/19/2025 4:39 AM EDT [facility] Comment:Estimated GFR was ca lculated using the CKD-EPIcr (2020) equation refit without race. The equation is recommended by the National Kidney Foundation - [place] [employer] of Nephrology Task Force. Blood VENOUS BLOOD / Unknown Venipuncture / Unknown 01/19/2025 4:10 AM EDT 01/19/2025 4:15 AM EDT us Jennifer Jj MOBILE BATTERY TECHNICIAN CHEMISTRY ORDERABLES Final R esult [facility] [address] [place] [address] * SCANNED EKG (01/18/2025 9:40 AM EDT) Anatomical Region Laterality Modality Other 01/18/2025 9:40 AM EDT us Unknown Provider IMG ECG ORDERABLES Final Result * [id number] (01/18/2025 8:20 AM EDT) [facility] CORONAVIRUS [id number] Not Detected Not Detected 01/18/2025 9:07 AM EDT [facility] Influenza A DNA Not Detected Not Detected 01/18/2025 9:07 AM EDT [facility] Influenza B DNA Not Detected Not Detected 01/18/2025 9:07 AM EDT [facility] RSV DNA Not Detected Not Detected 01/18/2025 9:07 AM EDT [facility] Swab BOTH ANTERIOR NARES / Unknown 01/18/2025 8:20 AM EDT 01/18/2025 8:22 AM EDT Narrative [facility] - 01/18/2025 9:07 AM EDT This test is performed using the Jessica soham jonathan system and is for use under the FDA s Emergency Use Authorization. Rosalinda Fields APRN MICROBIOLOGY - GENERAL ORDERABLE S Final Result Performing Organization Address City/State/[facility] Co de Phone Number [facility] [address] [place] [address] [phone] * (ABNORMAL) STAPHYLOCOCCUS AUREUS SCREEN (01/18/2025 8:20 AM EDT) [facility] Staph aureus PCR Detected(A) Not Detected 01/18/2025 12:59 PM EDT PREFERRED [facility] [employer], [facility] MRSA PCR Not Detected Not Detected 01/18/2025 12:59 PM EDT [facility] [employer], [facility] Swab BOTH ANTERIOR NARES / Unknown 01/18/2025 8:20 AM EDT 01/18/2025 8:23 AM EDT Narrative [facility] [employer], [facility] - 01/18/2025 12:59 PM EDT MRSA target DNA sequences are not detected. SA target DNA sequence is detected. This qualitative assay is intended for the detection of Staphylococcus aureus proprietary sequences for the staphylococcal protein A (spa) gene, the gene for methicillin resistance (mecA), and the staphylococcal cassette chromosome mec (SCCmec) inserted into the SA chromosomal attB site. This assay utilizes real time PCR on the [employer] GeneXpert Infinity, and its performance has been verified by the [facility]. A negative result does not rule out the presence of the Staphylococcus aureus or Methicillin resistant Staphylococcus aureus in concentrations below the limit of detection for the assay. This assay is FDA cleared to test on nares swabs collected on patients >21 years of age. Testing on patients < 21 years of age and on umbilicus sources is not FDA approved by this methodology, but has been developed and validated by the [facility] laboratory. Detailed methodology is available upon request. Rosalinda Fields APRN MICROBIOLOGY GENERAL ORDERABLE S Final Result Performing Organization Address City/[facility] de Phone Number [facility] [address] , [address] [place] [phone] * BLOOD CULTURE (NO STAIN) (01/18/2025 8:13 AM EDT) Only the most recent of2 resultswithin the time period is included. Culture Result No Growth at 120 hours. BLOOD CULTURE (NO STAIN) 01/23/2025 12:00 PM EDT [facility] Blood VENOUS BLOOD / Unknown Venipuncture / Unknown 01/18/2025 8:13 AM EDT 01/18/2025 8:18 AM EDT Rosalinda Fields APRN MICROBIOLOGY - GENERAL ORDERABLE S Final Result Performing Organization Address [facility] de Phone Number [facility] [address] , [place] [address] * (ABNORMAL) ELECTROLYTES WHOLE BLOOD (01/18/2025 6:27 AM EDT) Only the most recent of7 resultswithin the time period is included. Sodium WB 133(L) 136 - 145 mmol/L 01/18/2025 6:38 AM EDT [facility] K-WB 3.0(L) 3.5 - 5.0 mEq/L 01/18/2025 6:38 AM EDT [facility] Chloride WB 101 98 - 107 mmol/L 01/18/2025 6:38 AM EDT [facility] Total CO2 WB 24.7 22 - 29 mmol/L 01/18/2025 6:38 AM EDT [facility] Glucose WB 196(H) 72 - 112 mg/dL 01/18/2025 6:38 AM EDT [facility] Anion Gap WB 7.3 7 - 16 mmol/L 01/18/2025 6:38 AM EDT [facility] pH Venous 7.47(H) 7.32 - 7.42 pH 01/18/2025 6:38 AM EDT [facility] Blood VENOUS BLOOD / Unknown Venipuncture / Unknown 01/18/2025 6:27 AM EDT 01/18/2025 6:30 AM EDT us Jennifer Jj MOBILE BATTERY TECHNICIAN CHEMISTRY ORDERABLES Final R esult [facility] [address] [place] [address] * (ABNORMAL) HEMOGLOBIN A1C (01/18/2025 6:26 AM EDT) Hgb A1C 11.2(H) 4.2 - 5.6 % 01/18/2025 6:47 PM EDT PREFERRED LAB [employer], [employer] [employer] Avg Glucose 275 mg/dL 01/18/2025 6:47 PM EDT [facility] [employer], [employer] Blood VENOUS BLOOD / Unknown Venipuncture / Unknown 01/18/2025 6:26 AM EDT 01/18/2025 6:30 AM EDT Narrative [facility] - 01/18/2025 6:47 PM EDT REFERENCE RANGE: Normal: 4.0-5.6% Pre-diabetes: 5.7-6.4% Provisional diagnosis of diabetes: >6.4% Hgb F>10% and anything which shortens red cell survival, such as hemolytic anemia, or unstable hemoglobin variants such as HbSS, HbSC, or HbCC, will lower the HbA1c value associated with a given level of glycemic control. us Rosalinda Fields MOBILE BATTERY TECHNICIAN CHEMISTRY ORDERABLES Final Resul t [facility] [address] [facility] , [place] [address] * (ABNORMAL) LIPID SCREEN (01/18/2025 5:14 AM EDT) Pathologist [facility] Cholesterol 103 <200 mg/dL 01/18/2025 6:01 PM EDT [facility] Comment: < 200 Desirable 200 - 239 Borderline High >= 240 High Triglyceride 88 <150 mg/dL 01/18/2025 6:01 PM EDT [facility] Comment: < 150 Normal 150 - 199 Borderline High 200 - 499 High >= 500 Very High HDL 35(L) >=40 mg/dL 01/18/2025 6:01 PM EDT [facility] Comment: > 60 Optimal 40 - 60 Acceptable < 40 Low LDL Calculated 51 <100 mg/dL 01/18/2025 6:01 PM EDT [facility] Comment: < 100 Optimal 100 - 129 Near or above optimal 130 - 159 Borderline High 160 - 189 High >= 190 Very High The National Institutes of Health (NIH) equation is used for all lipid panels that report calculated LDL (LDL-C). Non-HDL-C Calculated 68 <=129 mg/dL 01/18/2025 6:01 PM EDT [facility] Comment: <130 Desirable 130-159 Above Desirable 160-189 Borderline High 190-219 High >= 220 Very High Fasting Specimen? 025 6:01 PM EDT [facility] Blood VENOUS BLOOD / Unknown Venipuncture / Unknown 01/18/2025 5:14 AM EDT 01/18/2025 5:38 AM EDT Rosalinda Fields APRN CHEMISTRY ORDERABLES Final Resul t [facility] [address], [place] [address] * STREP A DNA (01/18/2025 12:04 AM EDT) Strep A DNA Not Detected Not Detected 01/18/2025 12:31 AM EDT [facility] Comment:Not Detected results do not preclude Streptococcus pyogenes infection and should not be used for the sole basis for treatment or other patient management decisions. A result of Not Detected does not rule out the presence of Group A Streptococcus DNA in concentrations below the level of detection of the assay. Swab STRUCTURE OF ANTERIOR PORTION OF NECK / Unknown 01/18/2025 12:04 AM EDT 01/18/2025 12:15 AM EDT Narrative [facility] - 01/18/2025 12:31 AM EDT The Jessica JONATHAN Strep A assay utilizes nucleic acid purification and polymerase chain reaction (PCR) technology to detect Streptococcus pyogenes by targeting a segment of the Streptococcus pyogenes genome. Kamla Erickson MOBILE BATTERY TECHNICIAN MICROBIOLOGY - GENERAL ORDE JOSH Final Result [facility] [address] [place] [address] * (ABNORMAL) URINALYSIS REFLEX (01/17/2025 8:19 PM EDT) UA Color Yellow 01/17/2025 8:34 PM EDT [facility] UA Appear Clear Clear 01/17/2025 8:34 PM EDT [facility] UA Glucose >=1000(A) Negative mg/dL 01/17/2025 8:34 PM EDT [facility] UA Ketones >=80(A) Negative mg/dL 01/17/2025 8:34 PM EDT [facility] UA Blood Large(A) Negative 01/17/2025 8:34 PM EDT [facility] UA pH 6.0 5.0 - 8.0 pH 01/17/2025 8:34 PM EDT [facility] UA Protein Trace(A) Negative mg/dL 01/17/2025 8:34 PM EDT [facility] UA Urobilinogen 0.2 <=1 mg/dL 8:34 PM EDT [facility] UA Bili 01/17/2025 8:34 PM EDT [facility] Comment:Unable to report. Ca nnot rule out interfering substances that may yield false positive results. Consider correlation with serum bilirubin result. UA Nitrite Negative Negative 01/17/2025 8:34 PM EDT [facility] UA Leuk Est Negative Negative 01/17/2025 8:34 PM EDT [facility] UA Spec Grav 1.025 1.001 - 1.035 no units 01/17/2025 8:34 PM EDT [facility] Comment:Reference range marylin d for random specimens only. UA WBC 2 0 - 4 /HPF 01/17/2025 8:34 PM EDT [facility] UA RBC 1 0 - 3 /HPF 01/17/2025 8:34 PM EDT [facility] UA Squam Epi 1+ /LPF 01/17/2025 8:34 PM EDT [facility] Urine STRUCTURE OF URINARY TRACT PROPER / Unknown 01/17/2025 8:19 PM EDT 01/17/2025 8:25 PM EDT Jd Cifuentes MD URINE ORDERABLES Final Result Performing Organization Address City/[facility]/ZIP Co de Phone Number [facility] [address] [place] [address] * EXTRA DONG URINE CX (01/17/2025 8:19 PM EDT) Urine STRUCTURE OF URINARY TRACT PROPER / Unknown 01/17/2025 8:19 PM EDT 01/17/2025 8:25 PM EDT Jd Cifuentes MD MICROBIOLOGY - GENERAL ORDERABL ES Final Result Performing Organization Address [facility]/ZIP Co de Phone Number [facility] [address] [place] [address] * (ABNORMAL) GLUCOSE (FASTING OR RANDOM) (01/17/2025 6:57 PM EDT) Glucose Lvl 262(H) 70 - 99 mg/dL 01/17/2025 7:17 PM EDT [facility] Fasting Specimen? Yes None 01/17/2025 7:17 PM EDT [facility] Blood VENOUS BLOOD / Unknown Venipuncture / Unknown 01/17/2025 6:57 PM EDT 01/17/2025 7:01 PM EDT Narrative [facility] - 01/17/2025 7:17 PM EDT Reference Range(ADA): Non- < 100 mg/dL Normal 100 - 125 mg/dL Impaired Fasting Glucose >= 126 mg/dL Suggestive of Diabetes us Jennifer Jj MOBILE BATTERY TECHNICIAN CHEMISTRY ORDERABLES Final R esult [facility] [address] [place] [address] * (ABNORMAL) BLOOD GAS, VENOUS (01/17/2025 4:28 PM EDT) pH Venous 7.05(LL) 7.32 - 7.42 pH 01/17/2025 4:35 PM EDT [facility] pCO2 Venous 22(L) 41 - 51 mmHg 01/17/2025 4:35 PM EDT [facility] pO2 Venous 47(H) 25 - 40 mmHg 01/17/2025 4:35 PM EDT [facility] Comment:Interpret with cauti on. Not recommended to evaluate patient's oxygenation status. Base Excess Cedric -23.0 mmol/L 4:35 PM EDT [facility] Hco3 Venous 5.9(L) 24.0 - 28.0 mmol/L 01/17/2025 4:35 PM EDT [facility] CO2 Total Cedric 6(L) 25 - 29 mmol/L 01/17/2025 4:35 PM EDT [facility] O2 Sat. Venous 74.2(H) 40.0 - 70.0 % 01/17/2025 4:35 PM EDT [facility] Inspired O2 RA 01/17/2025 4:35 PM EDT [facility] Blood VENOUS BLOOD / Unknown Venipuncture / Unknown 01/17/2025 4:28 PM EDT 01/17/2025 4:31 PM EDT us Jd Cifuentes MD CHEMISTRY ORDERABLES Final Resu lt Performing Organization Address [facility] de Phone Number [facility] [address] [place] [address] * (ABNORMAL) BETA-HYDROXYBUTYRIC ACID (01/17/2025 4:28 PM EDT) [facility] BHB >8.00(H) 0.00 - 0.30 mmol/L 01/17/2025 4:53 PM EDT [facility] Blood VENOUS BLOOD / Unknown Venipuncture / Unknown 01/17/2025 4:28 PM EDT 01/17/2025 4:31 PM EDT us Jd Cifuentes MD CHEMISTRY ORDERABLES Final Resu Performing Organization Address [facility] de Phone Number [facility] [address] [place] [address] * LIPASE LEVEL (01/17/2025 4:28 PM EDT) [facility] Lipase Lvl 37 13 - 60 U/L 01/17/2025 4:53 PM EDT [facility] Blood VENOUS BLOOD / Unknown Venipuncture / Unknown 01/17/2025 4:28 PM EDT 01/17/2025 4:31 PM EDT us Jd Cifuentes MD CHEMISTRY ORDERABLES Final Resu lt Performing Organization Address [facility] de Phone Number [address] [address] * ALCOHOL MEDICAL (01/17/2025 4:28 PM EDT) [facility] Alcohol Medical <10 <=10 mg/dL 4:53 PM EDT [facility] Comment: 50-100 mg/dL - Flushing, slowing of reflexes, impaired visual acuity > 100 mg/dL - Depression of RN FIRST ASSIST > 400 mg/dL - Fatalities reported Blood VENOUS BLOOD / Unknown Venipuncture / Unknown 01/17/2025 4:28 PM EDT 01/17/2025 4:31 PM EDT us Jd Cifuentes MD CHEMISTRY ORDERABLES Final Resu lt [facility] [address] [place] [address] * (ABNORMAL) COMPREHENSIVE METABOLIC PANEL (01/17/2025 4:28 PM EDT) Sodium 126(L) 136 - 145 mmol/L 01/17/2025 5:00 PM EDT [facility] Potassium 3.1(L) 3.5 - 5.0 mmol/L 01/17/2025 5:00 PM EDT [facility] Chloride 80(L) 98 - 107 mmol/L 01/17/2025 5:00 PM EDT [facility] Total CO2 <6(L) 22 - 29 mmol/L 01/17/2025 5:00 PM EDT [facility] Anion Gap >40(H) 7 - 16 mmol/L 01/17/2025 5:00 PM EDT [facility] Calcium 7.5(L) 8.6 - 10.4 mg/dL 01/17/2025 5:00 PM EDT [facility] Glucose Lvl 624(HH) 70 - 99 mg/dL 01/17/2025 5:00 PM EDT [facility] BUN 51(H) 6 - 20 mg/dL 01/17/2025 5:00 PM EDT [facility] Creatinine 0.74 0.67 - 1.30 mg/dL 01/17/2025 5:00 PM EDT [facility] Albumin 3.7 3.5 - 5.2 gm/dL 01/17/2025 5:00 PM EDT [facility] Total Protein 6.8 6.4 - 8.3 gm/dL 01/17/2025 5:00 PM EDT [facility] Bili Total 0.3 0.2 - 1.4 mg/dL 01/17/2025 5:00 PM EDT [facility] ALT 52(H) <=41 U/L 01/17/2025 5:00 PM EDT [facility] AST 30 <=40 U/L 01/17/2025 5:00 PM EDT [facility] Alk Phos 200(H) 40 - 129 U/L 01/17/2025 5:00 PM EDT [facility] eGFR (CKD-EPIcr 2020) 123 >=60 mL/min/1.7 3 m2 01/17/2025 5:00 PM EDT [facility] Comment:Estimated GFR was ca lculated using the CKD-EPIcr (2020) equation refit without race. The equation is recommended by the National Kidney Foundation - [place] [employer] of Nephrology Task Force. Blood VENOUS BLOOD / Unknown Venipuncture / Unknown 01/17/2025 4:28 PM EDT 01/17/2025 4:31 PM EDT us Jd Cifuentes MD CHEMISTRY ORDERABLES Final Resu lt [address] [address] * XR CHEST AP PORTABLE (01/17/2025 4:12 PM EDT) Anatomical Region Laterality Modality Chest Radiographic Lexie ging 01/17/2025 4:12 PM EDT Impressions 01/17/2025 4:18 PM EDT No acute finding. - Note: Radiology results need to be interpreted within a comprehensive clinical context. If you have questions about the radiology report, please contact the office of the ordering clinician. Narrative 01/17/2025 4:18 PM EDT XR CHEST AP PORTABLE, 01/17/2025 4:12 PM CLINICAL HISTORY: -cough COMPARISON: 04/08/2023 PROCEDURE COMMENTS: AP portable technique. FINDINGS: Support devices: No visible support devices. Heart and mediastinal contours within normal limits for technique. No active failure, pneumonia, or visible effusion. No visible pneumothorax. Procedure Note Jovanni Garcia MD - 01/17/2025 XR CHEST AP PORTABLE, 01/17/2025 4:12 PM CLINICAL HISTORY: -cough COMPARISON: 04/08/2023 PROCEDURE COMMENTS: AP portable technique. FINDINGS: Support devices: No visible support devices. Heart and mediastinal contours within normal limits for technique. Noactive failure, pneumonia, or visible effusion. No visible pneumothorax. IMPRESSION: No acute finding. - Note: Radiology results need to be interpreted within a comprehensiveclinical context. If you have questions about the radiology report, please contactthe office of the ordering clinician. 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 : 1990 Requested By: JD Amin Order Number: [id number] Reading MD: Kaylah Dhaliwal Measurements Intervals [place] Rate: 112 P: 74 RI: 120 QRS: 82 QRSD: 102 T: -82 QT: 346 QTc: 474 Interpretive Statements POOR BASELINE, CANT SEE P WAVES CLEARLY, CANT RULE OUT AFIB CONSIDER REPEAT ECG NON-SPECIFIC ST & T WAVE ABNORMALITIES Electronically Signed On 01-18-2025 12:03:03 EDT by Kaylah Dhaliwal Narrative Procedure Note Kaylah Dhaliwal MD - 01/18/2025 IMPRESSION [facility] Test Date: 2025-01-17 Pat Name: [facility] Department: DEPID Room: E2414 Gender: Male 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 : 1990 Requested By: JD Amin Order Number: [id number] Reading MD: Kaylah Dhaliwal Measurements Intervals [place] Rate: 112 P: 74 RI: 120 QRS: 82 QRSD: 102 T: -82 QT: 346 QTc: 474 Interpretive Statements POOR BASELINE, CANT SEE P WAVES CLEARLY, CANT RULE OUT AFIB CONSIDER REPEAT ECG NON-SPECIFIC ST & T WAVE ABNORMALITIES Electronically Signed On 01-18-2025 12:03:03 EDT by Kaylah Dhaliwal us Jd Cifuentes MD IMG ECG ORDERABLES Final Result from Last 3 Months Insurance [employer] [place] Subscriber Plan / Payer (Ef fective 2024-Present) Name:Ariel Armas Relation to Subscriber:Self Name:Ariel Armas Payer ID:Not on file Group ID:[id number] Type:Not on file Address: [place] [id number] [employer] [place] MDR [address] [place] [address] [facility] [employer] [place] MDR Advance Directives For more information, please contact: [phone] * Full Code (Latest Code Status on File) Date Activated Date Inactivated Comments 01/17/2025 6:51 PM 01/19/2025 7:16 PM * Full Code Date Activated Date Inactivated Comments 04/08/2023 4:46 AM 04/11/2023 8:26 PM * Full Code Date Activated Date Inactivated Comments 02/08/2023 9:59 AM 02/10/2023 7:53 PM * Full Code Date Activated Date Inactivated Comments 02/07/2023 8:48 PM 02/08/2023 9:59 AM * Full Code Date Activated Date Inactivated Comments 04/20/2016 12:10 AM 04/25/2016 5:27 PM Care Teams High Worker Relationship Specialty Start Date End Date Deion Albright MD [address] [place] [address] PCP - General Family Medicine 09/12/24 Deion Albright MD [address] [place] [address] Family Medicine 09/12/24
--- OUTSIDE RECORDS SUMMARY | 2025-04-10 19:07 | XMS_ITS | Clinical Summary ---
Author Organization [facility] Address [address] [place] [address] Care Team Providers Care Anchorer Name Role Phone Ashok Baxter MD Primary Care Provider [phone] Allergies Active Allergy Reactions Criticality Noted Date Comments Milk (Cow) Diarrhea Low 06/11/2024 Medications levETIRAcetam (Keppra) 1000 MG tablet Take 2 tablets (2,000 mg) by mouth 2 (two) times a day. 4 Active midodrine (Proamatine) 5 MG tablet Take 1 tablet (5 mg) by mouth 3 (three) times a day. 4 Active Additional Information Patient not taking.Reported on 09/26/2024 ergocalciferol (Vitamin D-2) 1.25 MG (06579 UT) capsule Take 1 capsule (50,000 Units) by mouth 1 (one) time per week. 4 Active calcium carbonate (Tums) 500 MG chewable tablet Chew 1 tablet (500 mg) 3 (three) times a day. 4 Active Blood Glucose Monitoring Suppl device Test three times daily 1 each 4 Active Alcohol Sheets (Alcoh-Wipe) sheet Use as directed. 300 each 11 4 Active acetaminophen (Tylenol) 500 MG tablet Take 650 mg by mouth every 6 (six) hours if needed for pain. Active melatonin tablet Take by mouth. Active Blood Glucose Monitoring Suppl (Blood Glucose Monitor System) w/Device kitIndications:T ype 1 diabetes mellitus with other specified complication ([facility]) Use to check glucose readings 3 times a day 1 kit 4 Active Lancets miscIndications: Type 1 diabetes mellitus with other specified complication ([facility]) Use to check glucose 3 times a day 270 each 3 4 Active glucose blood test stripIndications :Type 1 diabetes mellitus with other specified complication ([facility]) Use to check blood glucose 3 times a day 270 each 3 4 Active zonisamide (Zonegran) 50 MG capsule 4 Active collagenase (Santyl) 250 UNIT/GM ointment Apply to wound over outer left side of left leg, once daily for 2 weeks 30 g 4 Active methocarbamol (Robaxin) 750 MG tablet Take 1 tablet (750 mg) by mouth every 8 (eight) hours if needed for muscle spasms. 90 tablet 4 Active Additional Information Patient not taking.Reported on 09/26/2024 gabapentin (Neurontin) 300 MG capsule Take 1 capsule (300 mg) by mouth every night for 3 days, THEN 1 capsule (300 mg) 2 (two) times a day for 3 days, THEN 1 capsule (300 mg) 3 (three) times a day. 99 capsule 4 Active Additional Information Patient not taking.Reported on 09/26/2024 Sodium Hypochlorite (Dakins, / strength,) 0.125 % solutionIndicati ons:Diabetic wet gangrene of the foot ([facility]) Apply dakins to moist gauze and apply to wound daily 473 mL 2 4 Active cyclobenzaprine (Flexeril) 10 MG tablet Take 1 tablet (10 mg) by mouth every 8 (eight) hours if needed. 4 Active amitriptyline (Elavil) 50 MG tablet Take 1 tablet (50 mg) by mouth every night. 30 tablet 1 4 Active Continuous Glucose Sensor (Dexcom G7 Sensor) misc 1 sensor every 10 (ten) days. 9 each 1 5 Active Continuous Glucose Student Life Dean (Dexcom G7 Student Life Dean) device 1 each 1 (one) time each day. 1 each 5 Active acetone, urine, test strip 1 strip if needed for high blood sugar. 25 each 5 Active senna-docusate (Stool Softener Plus Laxative) 8.6-50 MG tablet 4 Active polyethylene glycol (Miralax) 17 GM/SCOOP powder 4 Active neomycin-polymyx in-hydrocortison e (Cortisporin) 3.5-03885-8 otic suspension Administer 4 drops into affected ear(s) twice a day. 5 Active insulin glargine (Lantus SoloStar, Basaglar) 100 UNIT/ML injection pen Inject 30 Units under the skin nightly. 15 mL 1 5 12/16/19 26 Active Insulin Pen Needle (Pen Torrance) 32G X 5 MM misc 1 each 5 times a day. 150 each 2 5 Active insulin lispro (Admelog, HumaLOG) 100 UNIT/ML injection pen Use 15-20 units before meals three times daily, max daily dose of 75 units 30 mL 1 5 Active Active Problems Problem Noted Date Diagnosed Date Thoracic myofascial strain 08/09/2024 At high risk for falls 07/27/2024 Vitamin D deficiency 07/11/2024 Overview (07/27/2024): Undetectable on labs at S/P BKA (below knee amputation), left 07/11/2024 Overview (07/27/2024): 06/16/2024 emergent BKA for diabetic ulcer/gangrene/sepsis vascular surgery Cervicalgia 07/11/2024 Anemia, unspecified 07/06/2024 Dorsalgia, unspecified 07/06/2024 Hypocalcemia 07/06/2024 Alcohol-induced acute pancreatitis 2024 Neuropathy 2024 Acquired absence of left leg below knee 06/28/20 24 Polyneuropathy, unspecified 06/28/2024 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 06/28/2024 Pneumonia of right upper lobe due to infectious organism 06/18/2024 Diabetic wet gangrene of the foot 06/09/2024 Moderate protein-calorie malnutrition 04/10/2023 Alcohol abuse 04/08/2023 Fatty liver 04/08/2023 Electrolyte abnormality 04/08/2023 Intracranial hemorrhage 02/07/2023 SDH (subdural hematoma) 01/26/2023 Overview (01/26/2023): NSGY consulted Repeat CT head reviewed this AM- fairly stable hematoma No surgical intervention at this time Q2 neuro checks HOB >30 normonatremia goals SBP <140 Seizure disorder 01/26/2023 Overview (07/27/2024): 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 Likely metabolic component as well Type 1 diabetes mellitus with other specified co mplication 01/26/2023 Overview (01/26/2023): Endocrine consulted Transaminitis 01/26/2023 Overview (01/26/2023): Likely secondary to trauma Hyponatremia 01/26/2023 Overview (01/26/2023): Monitor ATN (acute tubular necrosis) 04/19/2016 Iron deficiency anemia due to chronic blood loss 04/19/2016 Hyperlipidemia, unspecified 08/21/2015 Noncompliance 08/21/2015 Severe dehydration 08/21/2015 Resolved Problems Problem Noted Date Diagnosed Date Resolved Date Phantom limb pain 08/09/2024 08/10/2024 Metabolic encephalopathy 07/06/2024 Pneumonia, unspecified organism 07/06/2024 08/10/2024 Type 1 diabetes mellitus wit h diabetic peripheral angiopathy with gangrene 07/06/202407/23 Type 1 diabetes mellitus wit h ketoacidosis without coma 07/06/2024 08/10/2024 Hyperglycemia 01/26/2023 01/26/2023 Overview (01/26/2023): - Attributed to T1DM. - Endocrinology c/s in AM. Diabetic ketoacidosis withou t coma associated with type 2 diabetes mellitus 08/21/2015 08/10/2024 Diabetes mellitus 11/02/2011 01/26/2023 Overview (01/26/2023): Type 1 Blisters with epidermal loss due to burn (second degree) of forearm 08/28/2011 01/26/2023 Blisters, with epidermal los s due to burn (second degree) of multiple sites (except with eye) of face, head, and neck 08/28/20112022 Encounters Date Type Department Care Team Description 01/31/2025 Patient Outreach [place] [address] [address] Nicholas, [facility] [address] [place] [id number] Clarita Ballesteros LPN Follow-up 01/24/2025 Patient Outreach [place] [address] Serge Nicholas, [address] [address] Clarita Ballesteros LPN TCM Call 01/23/2025 Patient Outreach [place] [address] Serge Nicholas, [facility] [address] [place] [address] Clarita Ballesteros LPN TCM Call 01/22/2025 Patient Outreach [place] [address] [address] Nicholas, [address] [place] [address] Clarita Ballesteros LPN TCM Call from Last 3 Months Immunizations Immunization Administration Dates Next Due Influenza, injectable, quadrivalent, preservativ e free 08/21/2015 Tdap 08/23/2011 Family History Medical History Relation Name Comments No Known Problems Brother No Known Problems Daughter No Known Problems Father Diabetes Maternal Grandfather No Known Problems Maternal Grandmother Diabetes Mother No Known Problems Paternal Grandfather Diabetes Paternal Grandmother No Known Problems Sister No Known Problems Son Relation Name Status Comments Brother Alive Daughter Alive Father Alive Maternal Grandfather Alive Maternal Grandmother Alive Mother Paternal Grandfather Paternal Grandmother Sister Alive Son Alive Social History Tobacco Use Types Packs/Day Years Used Date Smoking Tobacco: Former Cigarettes Q uit: 06/28/2023 Passive Smoke Exposure: Past Smokeless Tobacco: Never Tobacco Cessation:Counseling Given: Not Answered Comments:N/a Alcohol Use Standard Drinks/Week Comments Not Currently 0 (1 standard drink = 0.6 oz pur e alcohol) Humiliation, Afraid, Rape, and Kick questionnair e Answer Date Recorded Within the last year, have y ou been afraid of your partner or ex-partner? No 06/12/2024 Within the last year, have y ou been humiliated or emotionally abused in other ways by your partner or ex-partner? No Within the last year, have y ou been kicked, hit, slapped, or otherwise physically hurt by your partner or ex-partner? No 06/12/2024 Within the last year, have y ou been raped or forced to have any kind of sexual activity by your partner or ex-partner? No 06/12/2024 Social Connection and Isolation Panel Answer Date Recorded In a typical week, how many times do you talk on the phone with family, friends, or neighbors? Three times a week 06/12/2024 How often do you get togethe r with friends or relatives? Three times a week 06/12/2024 How often do you attend [facility] or gnosticism services? Patient unable to answer 06/12/2024 Do you belong to any clubs o r organizations such as yazidism groups, unions, fraternal or athletic groups, or school groups? Patient unable to answer 06/12/2024 How often do you attend meet ings of the clubs or organizations you belong to? Patient unable to answer 06/12/2024 Are you , , di vorced, , never , or living with a partner? Never 06/12/2024 AUDIT-C Answer Date Recorded Q1: How often do you have a drink containing alcohol? Patient unable to answer 06/12/2024 Q2: How many drinks containi ng alcohol do you have on a typical day when you are drinking? Patient unable to answer Q3: How often do you have si x or more drinks on one occasion? Patient unable to answer 06/12/2024 Overall Financial Resource Strain (CARDIA) Answe r Date Recorded How hard is it for you to pa y for the very basics like food, housing, medical care, and heating? Somewhat hard 06/12/2024 PHQ-2 Answer Date Recorded Patient Health Questionnaire-2 Score 0 08/10/2024 [facility] - Occupational Stress Questionnaire Answer Date Recorded Do you feel stress - tense, restless, nervous, or anxious, or unable to sleep at night because your mind is troubled all the time - these days? Patient unable to answer 06/12/2024 Exercise Vital Sign Answer Date Recorde d On average, how many days pe r week do you engage in moderate to strenuous exercise (like a brisk walk)? 0 days 06/12/2024 On average, how many minutes do you engage in exercise at this level? 0 min 06/12/2024 Hunger Vital Sign Answer Date Recorded Within the past 12 months, y ou worried that your food would run out before you got the money to buy more. Never true 06/12/20 24 Within the past 12 months, t he food you bought just didn't last and you didn't have money to get more. Never true 06/12/2024 PRAPARE - Transportation Answer Date Re corded In the past 12 months, has l ack of transportation kept you from medical appointments or from getting medications? No 05/24 In the past 12 months, has l ack of transportation kept you from meetings, work, or from getting things needed for daily living? No 06/12/2024 Housing Stability Vital Sign Answer Ubaldo e Recorded In the last 12 months, was t here a time when you were not able to pay the mortgage or rent on time? No 06/12/2024 Number of Places Lived in the Last Year Not on f ile 06/12/2024 In the last 12 months, was t here a time when you did not have a steady place to sleep or slept in a long-term (including now)? No 06/12/2024 PHQ-9 Answer Date Recorded Patient Health Questionnaire-9 Score 3 08/10/2024 CAGE ASSESSMENT Answer Date Recorded Due to the following: Nonverbal 06/09/2024 Maximum number of drinks you had on a given occasion in the last month? 0 drinks 06/09/2024 How many alcoholic Beverages do you typically drink in a week? 0 - 7 per week 06/09/2024 Have you ever felt you should CUT down on your d rinking? 0 06/09/2024 Have you been ANNOYED by peo ple criticizing your drinking? 0 06/09/2024 Have you felt GUILTY about your drinking? 0 06/09/2024 Have you had a drink first t rebekah in the morning (EYE-FLAT BED KNITTER) to steady your nerves or to get rid of a hangover? 0 06/09/2024 CAGE Questionnaire Score 0 024 Utilities Answer Date Recorded In the past 12 months has th e electric, gas, oil, or water company threatened to shut off services in your home? No 06/12/2024 Sex and Gender Information Value Date Recorded Sex Assigned at Not on file Legal Sex Male 6:44 PM EDT Gender Identity Not on file Sexual Orientation Not on file Last Filed Vital Signs Vital Sign Reading Time Taken Comments Blood Pressure 102/71 09/26/2024 12:23 PM EST Pulse 91 09/26/2024 12:23 PM EST Temperature 36.6 C (97.9 F) 08/29/2024 1:01 PM EST Respiratory Rate 16 08/10/2024 9:34 AM EST Oxygen Saturation 100% 08/29/2024 1:01 PM EST Inhaled Oxygen Concentration - - Weight 61.7 kg (136 lb) 08/29/2024 1:01 PM EST Height 154.9 cm (5' 1 ) 08/29/2024 1:01 PM EST Body Mass Index 25.7 08/29/2024 1:01 PM EST Plan of Treatment Health Maintenance Due Date Last Done Comments [facility]-/Child/Adol SDOH Screenings 1991 Diabetes: Dental Exam 2001 [facility]-Varicella Vaccines (1 of 2 - 13+ 2-dose series) 2004 [facility]-Hepatitis A Vaccines (1 of 2 - Risk 2-dose series) 2010 [facility]-Hepatitis B Vaccines (1 of 3 - 19+ 3-dose series) 2010 [facility]-Pneumococcal Vaccine: Pediatrics (0 to 5 Years) and At-Risk Patients (6 to 49 Years) (1 of 2 - PCV) 2010 HPV Vaccines (1 - 3-dose SCDM series) 2018 [facility]-DTaP,Tdap,and Td Vaccines (2 - Td or Tdap) 08/23/2021 08/23/2011 [id number] Vaccine (1 - 2023- season) 2024 [facility]- SDOH Screenings 12/11/2024 [facility]-Adult SDOH Screenings 12/11/2024 06/12/2024 [facility]-Diabetes: Hemoglobin A1C 12/26/2024 09/26/2024, 06/09/2024, 01/26/2023 [facility]-Influenza Vaccine (#1) 2025 08/21/2015 [facility]-Depression Screening 08/10/2025 08/10/2024, 07/23 [facility]-Zoster Vaccines (1 of 2) 2041 [facility]-HIV Screening Completed 06/09/2024 [facility]-Hepatitis C Screening Completed 2024, 06/09/2024, 06/09/2024 [facility]-Obesity Intervention Completed 025, 08/29/2024, 08/29/2024, Additional history exists [facility]-HIB Vaccines Aged Out No longer e ligible based on patient's age to complete this topic [facility]-IPV Vaccines Aged Out No longer e ligible based on patient's age to complete this topic [facility]-Rotavirus Vaccines Aged Out No lo nger eligible based on patient's age to complete this topic Procedures Procedure Name Priority Date/Time Associated Diagnosis Comments POCT GLYCOSYLATED HEMOGLOBIN (HGB A1C) Routine 09/26/2024 12:06 PM EST Type 1 diabetes mellitus with other specified complication (CMS/HCC) ACUTE HEPATITIS PANEL Routine 08/29/2024 1:41 PM EST Abdominal pain, unspecified abdominal location ED HIV 1/2 ANTIBODY/ANTIGEN SCREEN WITH REFLEX TO HIV I/II DIFFERENTIATION STAT 06/09/2024 5:27 PM EDT from Last 3 Months or Most Recently Relevant to Health Maintenance Results * (ABNORMAL) POCT glycosylated hemoglobin (Hb A1C) (09/26/2024 12:06 PM EST) POCT Hemoglobin A1C 11.6 <5.7% Non-Diabe tic % [facility] Kit Lot Number [id number] [facility] Kit Expiration Date 06/22/2026 [facility] Blood Venous blood specimen / Unknown 09/26/2024 12:06 PM EST Porsha Calvin Machado CIRCUITS ENGINEER POINT OF CARE TEST ENTER/E DIT ORDERABLES Final Result Performing Organization Address City/[facility]/ZIP Co de Phone Number [facility] [address] [place] [address] * Acute Hepatitis Panel (08/29/2024 1:41 PM EST) Hepatitis B Surf Antigen Negative Negative 08/29/2024 5:37 PM EST [facility] Hepatitis C Antibody Negative Negative 08/29/2024 5:37 PM EST [facility] Hepatitis A Antibody IgM Negative Negative 08/29/2024 5:37 PM EST [facility] Hepatitis B Core Antibody IgM Negative Negative 08/29/2024 5:37 PM EST [facility] Blood Venous blood specimen / Unknown Venipuncture / Unknown 08/29/2024 1:41 PM EST 08/29/2024 1:41 PM EST Lianna RENNER LAB BLOOD ORDERABLES Final Res ult Performing Organization Address City/[facility]/ZIP Co de Phone Number [facility] [address] [place] [address] * ED HIV 1/2 Antibody/Antigen Screen w/Reflex to HIV 1/2 Differentiation (06/09/2024 5:27 PM EDT) Pathologist [facility] HIV 1 & 2 Antibody/Antigen Screen Non Reactive Non Reactive 06/09/2024 7:19 PM EDT [facility] Comment:Screening for HIV 1 & 2 antibodies, and P24 antigen is NONREACTIVE. No confirmatory testing is required. Blood Venous blood specimen / Unknown Venipuncture / Unknown 06/09/2024 5:27 PM EDT 06/09/2024 6:36 PM EDT Clay Silva MD LAB BLOOD ORDERABLES Final Resul t [facility] [address] [place] [address] from Last 3 Months or Most Recently Relevant to Health Maintenance Insurance [facility] Member Subscriber Plan / Payer (Ef fective 2024-Present) Name:Ariel Wilcox Relation to Subscriber:Self Name:Ariel Wilcox Payer ID:Not on file Group ID:Not on file Type:Not on file Address: [facility] [address] MEDICAID Advance Directives * Full Code (Latest Code Status on File) Date Activated Date Inactivated Comments 01/26/2023 4:58 AM 01/27/2023 7:12 PM Question Answer Comments Patient has decision-making capacity? Yes Care Teams Anchorer Relationship Specialty Start Date End Date Ashok Baxter MD [facility] [place] [address] PCP - General Family Medicine 08/10/24
--- NOTE | 2025-04-10 19:08 | ECG_ITS ---
APPROVED REPORT Exam: Resting ECG HR:81 bpm ECG Measurements Heart Rate 81 AXES OK 163 P 39 QRSd 91 QRS 96 QT 398 T 21 QTc 435 Conclusion BORDERLINE RIGHT AXIS DEVIATION [QRS AXIS > 90] NONSPECIFIC T-WAVE ABNORMALITY BORDERLINE ECG UNCONFIRMED REPORT Normal sinus rhythm. No ST elevation or depression. Electronically signed by : BENEDICTO PIZANO, 04/11/2025 00:26:38
--- NOTE | 2025-04-10 19:12 | CT_ITS ---
PROCEDURE INFORMATION: Exam: CT Abdomen And Pelvis With Contrast Exam date and time: 04/10/2025 9:23 PM Age: 34 years old Clinical indication: Other: AMS, hypothermic, hypoglycemic; Additional info: AMS, hypoglycemic, hypothermic TECHNIQUE: Imaging protocol: Computed tomography of the abdomen and pelvis with contrast. 3D rendering (Not supervised by radiologist): MIP and/or 3D reconstructed images were created by the technologist. Radiation optimization: All CT scans at this facility use at least one of these dose optimization techniques: automated exposure control; mA and/or kV adjustment per patient size (includes targeted exams where dose is matched to clinical indication); or iterative reconstruction. Contrast material: ISOVUE; Contrast volume: 80 ml; Contrast route: IV; COMPARISON: CT ANGIO CHEST PE PROTOCOL 04/10/2025 9:23 PM FINDINGS: Liver: Hepatic steatosis. Gallbladder and biliary ducts: Cholelithiasis. Pancreas: Moderate pancreatic atrophy. Spleen: Normal. No splenomegaly. Adrenal glands: Normal. No mass. Kidneys and ureters: Normal. No hydronephrosis. Stomach and bowel: Nonspecific bowel wall thickening of the stomach and small bowel. Moderate amount of stool in the colon. Appendix: Unremarkable appendix. Intraperitoneal space: Unremarkable. No free air. No significant fluid collection. Vasculature: Varices are seen extending into the gastric lumen worrisome for portal hypertension. The arteries demonstrate moderate atherosclerotic disease. Lymph nodes: Unremarkable. No enlarged lymph nodes. Urinary bladder: Unremarkable as visualized. Reproductive: Unremarkable as visualized. Bones/joints: Unremarkable. No acute fracture. Soft tissues: Tiny fat containing umbilical hernia. Other findings: Please see separate report for CT chest. IMPRESSION: 1. Varices are seen extending into the gastric lumen worrisome for portal hypertension. 2. The arteries demonstrate moderate atherosclerotic disease. This is advanced for the patient's age. 3. Nonspecific bowel wall thickening of the stomach and small bowel. Please correlate clinically for evidence of gastroenteritis. 4. Cholelithiasis. 5. Hepatic steatosis.
--- NOTE | 2025-04-10 19:12 | CT_ITS ---
PROCEDURE INFORMATION: Exam: CT Head Without Contrast Exam date and time: 04/10/2025 9:21 PM Age: 34 years old Clinical indication: Altered mental status/memory loss; Additional info: AMS, possible seizure TECHNIQUE: Imaging protocol: Computed tomography of the head without contrast. Radiation optimization: All CT scans at this facility use at least one of these dose optimization techniques: automated exposure control; mA and/or kV adjustment per patient size (includes targeted exams where dose is matched to clinical indication); or iterative reconstruction. COMPARISON: CT HEAD/BRAIN WO CON 06/09/2024 4:00 PM FINDINGS: Brain: Normal. No hemorrhage. Unremarkable white matter. No mass effect. Cerebral ventricles: No ventriculomegaly. Paranasal sinuses: Visualized sinuses are unremarkable. No fluid levels. Mastoid air cells: Visualized mastoid air cells are well aerated. Bones: Unremarkable. No acute fracture. Soft tissues: Unremarkable. IMPRESSION: No acute intracranial abnormality.
--- NOTE | 2025-04-10 19:12 | CT_ITS ---
PROCEDURE INFORMATION: Exam: CTA Chest With Contrast Exam date and time: 04/10/2025 9:23 PM Age: 34 years old Clinical indication: Other: AMS, hypothermic, hypoglycemic TECHNIQUE: Imaging protocol: Computed tomographic angiography of the chest with contrast. Exam focused on the arteries. 3D rendering (Not supervised by radiologist): MIP and/or 3D reconstructed images were created by the technologist. Radiation optimization: All CT scans at this facility use at least one of these dose optimization techniques: automated exposure control; mA and/or kV adjustment per patient size (includes targeted exams where dose is matched to clinical indication); or iterative reconstruction. Contrast material: ISOVUE; Contrast volume: 80 ml; Contrast route: INTRAVENOUS (IV); COMPARISON: CT ABDOMEN PELVIS W CON 04/10/2025 9:23 PM FINDINGS: Pulmonary arteries: Evaluation of the pulmonary arteries is limited to the segmental arterial level due to motion artifact. Aorta: No aortic dissection. Lungs: Bibasilar atelectasis. Subtle ground-glass opacities in the mid to lower lungs likely representing a small amount of aspiration pneumonitis or atypical infection. Pleural spaces: Unremarkable. No pneumothorax. No pleural effusion. Heart: Unremarkable. No cardiomegaly. No pericardial effusion. Lymph nodes: Unremarkable. No enlarged lymph nodes. Bones/joints: Chronic left 2nd rib irregularity. Soft tissues: Unremarkable. Other findings: Stigmata of old granulomatous disease. Please see separate report for abdomen/pelvis. IMPRESSION: 1. No aortic dissection. 2. Evaluation of the pulmonary arteries is limited to the segmental arterial level due to motion artifact. Within the limitations of the study, no pulmonary emboli. 3. Subtle ground-glass opacities in the mid to lower lungs likely representing a small amount of aspiration pneumonitis or atypical infection.
[2025-04-10] MEDS: LACTATED RINGERS 1000ML 1,000 ML 999 ML IV (19:14)
--- NOTE | 2025-04-10 19:15 | ED_ITS ---
Discharge Plan Disposition Patient Disposition: Xfer Short-Term Hosp Condition: Fair Prescriptions Prescriptions: No Action insulin NPH and regular human 100 unit/mL (70-30) cartridge 25 unit SQ USEASDIRECTD Patient Comments: pt takes 25 units in am and 25 units before dinner Ivone Alvarez mupirocin 2 % ointment 1 applic topical TID Qty: 15 0RF doxycycline hyclate 100 mg tablet 100 mg PO BID Qty: 20 0RF levofloxacin 750 mg tablet 750 mg PO DAILY Qty: 10 0RF Referrals Follow up/Referrals: Provider,Wayne, [Primary Care Provider, Medical] - See instructions Clinical Impressions Clinical Impression: Sepsis, Seizures, Esophageal and gastric varices, Pneumonia, Hypoglycemia, Altered mental status Stand Alone Forms Stand Alone Forms: Transfer Record - ED Instructions Patient Instructions: DI for Hyperglycemia -- Adult Print Language Print Language: Malagasy Discharge ED Provider: Darvin Bernstein General Adult HPI <Darvin Bernstein MD - Last Filed: 04/11/25 00:31> General Chief complaint: Hyper/Hypoglycemia Stated complaint: Hypoglycemia Time Seen by Provider: 04/10/25 19:07 History of Present Illness HPI narrative: Ariel Winter is a 34y male with a past medical history of insulin-dependent diabetes, reported history of seizures per EMS who presents to the emergency department via EMS for altered mental status. Per EMS, patient was found down and was minimally responsive. Patient's blood sugar at that time was found to be in the 40s. He received IV dextrose and route with improvement of blood sugar of 180s on arrival. Per EMS, he had seizure-like activity and route and received 5 of Versed that resolved the issue. Is unclear if patient speaks Haitian at this time the patient is able to tell me his name. He does appear confused. Intermittently following commands. 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 Patient was noted to be hypothermic on arrival to 93 Fahrenheit was placed on a Flaco hugger and 1 L warm lactated ringer was started. Related Data Home Medications ?Medication ?Instructions ?Recorded ?Confirmed insulin NPH-regular human 100 25 unit SQ USEASDIRECTD Diabetes 08/13/23 11/29/23 unit/mL (70-30) subcutaneous cartridge Previous Rx's ?Medication ?Instructions ?Recorded doxycycline hyclate 100 mg tablet 100 mg PO BID #20 ta bs 11/29/23 levofloxacin 750 mg tablet 750 mg PO DAILY #10 tabs mupirocin 2 % topical ointment 1 applic topical TID #1 5 grams 11/29/23 Allergies Allergy/AdvReac Type Severity Reaction Status Date / Time No Known Allergies Allergy Unverified 06/09/24 15:17 [facility] <Darvin Bernstein MD - Last Filed: 04/11/25 00:31> [facility] Disclaimer: The information contained in this section may have been updated after the patient was seen, as this information can be updated by other users. Medical History Cellulitis of left foot Diabetic ulcer of left foot Diabetes Social History Smoking Status: Unknown if ever smoked alcohol intake: current current occupational status: unemployed Travel in the last 8 weeks?: None Have you lived/traveled outside [place] in past 30 days?: No Contact w/someone who lives/traveled outside US past 30 days?: No Exposure to someone with infectious disease in past 14 days?: No Do you have a fever (greater than 100.4 F or 38 C)?: No Have you tested positive for COVID-19?: No Exposed to someone with COVID-19 in past 14 days?: No Do you have a sore throat?: No Do you have a cough?: No Do you have any weakness?: No Do you have any diarrhea?: No Are you experiencing any unusual bleeding?: No Do you have any muscle aches/pain?: No Do you have any abdominal pain?: No Are you experiencing loss of taste or smell?: No Other Medical History Have you received the Pneumonia Vaccine: No <Darvin Bernstein MD - Last Filed: 04/11/25 00:31> ROS Obtained: Yes unobtainable due to mental condition Physical Exam <Darvin Bernstein MD - Last Filed: 04/11/25 00:31> General General appearance: alert Comment: Altered, GCS 13-14 Head Head exam: atraumatic Eye Eye exam: Present normal appearance, PERRL and EOMI ENT ENT exam: Present normal external ear exam Neck Neck exam: Present full ROM Chest Chest inspection: Present symmetric chest wall rise Respiratory Respiratory exam: Present normal lung sounds bilaterally; Absent respiratory distress, wheezes or stridor Cardiovascular Cardiovascular exam: Present regular rate and normal rhythm Abdominal Exam Abdominal exam: Present soft; Absent distention, tenderness or guarding exam: Present deferred Extremities Exam Extremities exam: Present normal inspection and other (S/p left BKA) Back Exam Back exam: Present normal inspection Neurological Exam Neurological exam: Present alert and other (Intermittently following commands. Knows his name but is otherwise disoriented. No focal neurological deficits. GCS of 13-14) Psychiatric Psychiatric exam: Present other (Unable to assess secondary to altered mental status.) Skin Skin exam: Present warm and other (Pale) Medical Decision Making <Darvin Bernstein MD - Last Filed: 04/11/25 00:31> Medical Records Screening: Per USPSTF and CDC recommendations, given the prevalence of disease in our region, it is our hospital?s policy to screen for HIV and viral Hepatitis for all patients aged 18 and over and those with ongoing risk factors. Jose Inquiry Pt receiving controlled substance: No Vital Signs: 04/10/25 19:14 04/10/25 19:45 04/10/25 20:01 Temperature 93 F L Temperature Source Rectal Pulse Rate Pulse Rate [Right Brachial] 81 Respiratory Rate 14 11 L 13 Blood Pressure 162/103 H 159/108 H Blood Pressure [Right Arm] 120/86 Blood Pressure Mean [Right Arm] 97 Blood Pressure Source [Right Arm] Automatic Cuff Blood Pressure Position Blood Pressure Position [Right Arm] Supine 02 Sat by Pulse Oximetry 100 Oxygen Delivery Method Room Air 04/10/25 20:05 04/10/25 20:09 04/10/25 20:30 Temperature 97.6 F Temperature Source Oral Pulse Rate 77 Pulse Rate [Right Brachial] Respiratory Rate 9 L 12 12 Blood Pressure 165/103 H 165/103 H 167/112 H Blood Pressure [Right Arm] Blood Pressure Mean [Right Arm] Blood Pressure Source [Right Arm] Blood Pressure Position Supine Blood Pressure Position [Right Arm] 02 Sat by Pulse Oximetry 100 Oxygen Delivery Method Room Air 04/10/25 21:00 04/10/25 21:30 04/10/25 22:30 Temperature Temperature Source Pulse Rate 98 H Pulse Rate [Right Brachial] Respiratory Rate 14 12 19 Blood Pressure 184/112 H 177/112 H 164/91 H Blood Pressure [Right Arm] Blood Pressure Mean [Right Arm] Blood Pressure Source [Right Arm] Blood Pressure Position Blood Pressure Position [Right Arm] 02 Sat by Pulse Oximetry 99 Oxygen Delivery Method 04/10/25 23:00 04/10/25 23:30 04/11/25 00:00 Temperature Temperature Source Pulse Rate 98 H Pulse Rate [Right Brachial] Respiratory Rate 24 27 H 26 H Blood Pressure 132/85 137/88 134/94 H Blood Pressure [Right Arm] Blood Pressure Mean [Right Arm] Blood Pressure Source [Right Arm] Blood Pressure Position Blood Pressure Position [Right Arm] 02 Sat by Pulse Oximetry 98 Oxygen Delivery Method 04/11/25 00:15 04/11/25 00:30 04/11/25 01:00 Temperature Temperature Source Pulse Rate 99 H 90 Pulse Rate [Right Brachial] Respiratory Rate 26 H 23 24 Blood Pressure 147/92 H 148/93 H Blood Pressure [Right Arm] Blood Pressure Mean [Right Arm] Blood Pressure Source [Right Arm] Blood Pressure Position Blood Pressure Position [Right Arm] 02 Sat by Pulse Oximetry 99 99 Oxygen Delivery Method Lab Data Lab Results 04/10/25 19:41: WBC 3.2 L, RBC 4.67, Hgb 13.7 L, Hct 40.1 L, MCV 85.9, MCH 29.3, MCHC 34.2, RDW 11.9, Plt Count 137 L, MPV 9.4, Neut % (Auto) 78.6, Lymph % (Auto) 17.4, [place] % (Auto) 2.8, Eos % (Auto) 0.3, Baso % (Auto) 0.6, Neut # (Auto) 2.5, Lymph # (Auto) 0.6 L, [place] # (Auto) 0.1, Eos # (Auto) 0.0, Baso # (Auto) 0.0, VBG pH 7.28 L, VBG pCO2 50.1, VBG pO2 80.1 H, VBG HCO3 23.0, VBG Total CO2 24.6, VBG O2 Saturation 94.5 H, VBG Base Excess -3.7 L, VBG Lactic Acid 2.4 H, Sodium 135 L, Potassium 4.2, Chloride 99, Carbon Dioxide 23, Anion Gap 17.2 H, BUN 6 L, Creatinine 0.20 L, Estimated Creat Clear 455 H, Estimated GFR 551, Est GFR ( Amer) 667, Glucose 153 H, Calcium 8.4, Magnesium 1.6, Total Bilirubin 0.4, AST 196 H, ALT 106 H, Alkaline Phosphatase 254 H, Total Creatine Kinase 81, Troponin I < 0.01, NT-Pro-B Natriuret Pep 23.4, Total Protein 8.7 H, Albumin 4.5, Globulin 4.2 H, Albumin/Globulin Ratio 1.1, P lasma/Serum Alcohol 37 H, HCV Ab TERESA w/Rflx PCR Qn Negative, HIV Ag/Ab Combo Qual Negative 04/10/25 20:10: SARS-CoV-2 (PCR) Not detected, Influenza A Untype (PCR) Not detected, Influenza Type B (PCR) Not detected 04/10/25 20:15: Urine Color Yellow, Urine Appearance Clear, Urine pH 6.0, Ur Specific [place] 1.025, Urine Protein 2+ A, Urine Glucose (UA) Trace, Urine Ketones Negative, Urine Blood 3+ A, Urine Nitrate Negative, Urine Bilirubin Negative, Urine Urobilinogen 0.2, Ur Leukocyte Esterase Negative, Urine RBC 10- 20, Urine WBC 3-5, Ur Squamous Epith Cells 3-5, Urine Bacteria 1+ 04/10/25 20:17: Urine Opiates Screen Negative, Urine Methadone Screen Negative, Ur Barbituates Screen Negative, Ur Phencyclidine Scrn Negative, Ur Amphetamines Screen Negative, U Benzodiazepines Scrn Positive H, Urine Cocaine Screen Negative, U Marijuana (THC) Screen Negative 04/10/25 19:41 04/10/25 19:41 Orders (Tests/Meds): ED MEDICATIONS Generic Name Dose Route Start Last Admin Trade Name Grzegorzq PRN Reason Stop Dose Admin Ceftriaxone Sodium 2 gm/ 100 mls @ 200 mls/hr 04/10/25 23:30 04/10/25 23:47 Sodium Chloride IV 04/20/25 23:29 200 mls/hr Q24H ENRIQUE Administration Azithromycin 500 mg/ Sodium 250 mls @ 250 mls/hr 04/10/25 23:30 04/10/25 23:37 Chloride IV 04/20/25 23:29 250 mls/hr Q24H ENRIQUE Administration Sodium Chloride 10 ml 04/10/25 21:30 04/10/25 21:30 Sodium Chloride 0.9% 10ml Syr (Rad Only) IV 05/10/25 21:29 10 ml NEEDED PRN Administration Maintain IV Site Discontinued Medications Generic Name Dose Route Start Last Admin Trade Name Yelitza PRN Reason Stop Dose Admin Dextrose 50 ml 04/11/25 01:04 Dextrose 50% 50ml Syringe (Crash Cart) IVP 04/11/25 01:05 ONCE ONE Lactated Ringer's 1,000 mls @ 999 mls/hr 04/10/25 19:13 04/10/25 22:09 Lactated Ringer's 1000 Ml Bag IV 04/10/25 20:13 Infused .Q1H1M ONE Infusion Levetiracetam 2,000 mg/ Sodium 120 mls @ 240 mls/hr 04/10/25 19:30 04/10/25 20:21 Chloride IV 04/10/25 19:31 Infused ONCE ONE Infusion Iopamidol 80 ml 04/10/25 21:30 04/10/25 21:30 Iopamidol-370 (76%);100ml Bottle IV 04/10/25 21:31 80 ml ONCE ONE Administration Ondansetron HCl 4 mg 04/10/25 20:26 04/10/25 20:27 Ondansetron 4mg/2ml Vial IV 04/10/25 20:27 4 mg ONCE ONE Administration Ondansetron HCl 4 mg 04/10/25 21:18 04/10/25 21:40 Ondansetron 4mg/2ml Vial IV 04/10/25 21:19 4 mg ONCE ONE Administration Sodium Chloride 50 ml 04/10/25 21:30 04/10/25 21:30 0.9 % Sodium Chloride 50 Ml Vial IV 04/10/25 21:31 50 ml ONCE ONE Administration ORDERS Category Date Time Status CT abdomen pelvis w con Stat Cat Scan 04/10/25 19:[address] angio chest PE protocol Stat Cat Scan 04/10/25 19:[address] head/brain wo con Stat Cat Scan 04/10/25 19:12 Completed BNP [NT Pro Brain Natriuretic Pep.] Stat Lab 04/10/25 19:41 Completed CBC w/Auto Diff [Complete Blood Count Auto Diff] Stat Lab 04/10/25 19:41 Completed CK [Creatine Kinase] Stat Lab 04/10/25 19:41 Completed CMP [Comprehensive Metabolic Panel] Stat Lab 04/10/25 19:41 Completed Ethyl Alcohol Stat Lab 04/10/25 19:41 Completed HIV Combo Routine Lab 04/10/25 19:41 Completed Hepatitis C Ab Qual. W/ RFX Routine Lab 04/10/25 19:41 Completed Lactic Acid Follow Up (RFLX 1) Stat Lab 04/10/25 23:59 Ordered Magnesium Stat Lab 04/10/25 19:41 Completed Rapid PCR Covid and Flu A/B Stat Lab 04/10/25 20:10 Completed Troponin I Q3H Lab 04/11/25 01:15 Ordered Troponin I Stat Lab 04/10/25 19:41 Completed UA [Urinalysis and Microscopic] Stat Lab 04/10/25 20:15 Completed UDS [Drug Screen,Urine] Stat Lab 04/10/25 20:17 Completed Blood Culture Stat Micro 04/10/25 20:32 Received VBG [Venous Blood Gas] Stat RT 04/10/25 19:41 Completed ECG Data Tracing #1: I reviewed this ECG and interpreted as documented below: Normal sinus rhythm. No ST elevation or depression. QTc normal at 435 Medical Decision Narrative: Ariel Winter is a 34y male with a past medical history of insulin-dependent diabetes, reported history of seizures per EMS who presents to the emergency department via EMS for altered mental status. Per EMS, patient was found down and was minimally responsive. Patient's blood sugar at that time was found to be in the 40s. He received IV dextrose and route with improvement of blood sugar of 180s on arrival. Per EMS, he had seizure-like activity and route and received 5 of Versed that resolved the issue. Is unclear if patient speaks Haitian at this time the patient is able to tell me his name. He does appear confused. Intermittently following commands. 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 Patient was noted to be hypothermic on arrival to 93 Fahrenheit was placed on a Flaco hugger and 1 L warm lactated ringer was started. On arrival, patient is initially normotensive with blood pressure 120/86, heart rate 81, breathing 14 times a minute. He is hypothermic with temperature of 93 rectally. O2 sat 100% on room air. Physical exam, stated above, revealed an ill appearing male in no respiratory distress. He is GCS of 13-14 due to confusion and intermittently following commands. Pupils are equal round and reactive to light. No focal neurological deficits. He is status post left BKA. No evidence of infection externally to this wound. He appears pale. Cardiopulmonary exam is unremarkable. Abdomen is soft and nontender. Per cousin Silvia, patient's brother does not speak Haitian but knows the most about his health care. She does note that he has a history of diabetes and seizures. Reportedly, he had been acting normally today, doing laundry and then laid down to sleep. At that time, they had difficulty waking him up and it seems like an ambulance was called for unresponsiveness. She does state that he takes medication for seizures but does not know what medication he takes. She is not sure where his neurologist or primary care physicians are. She is going to attempt to contact patient's brother and call back with more information. Silvia called back after discussing case with patient's brother. States that his diabetes doctors and neurologist are at the [facility]. She does state he is supposed to take medication for his seizures although she is not sure if he actually takes it. Differential diagnosis includes, but is not limited to: sepsis, breakthrough seizure, medical noncompliance, alcohol withdrawal, intracranial hemorrhage, intracranial mass, pneumonia, intra-abdominal infection, urinary tract affection, drug use, among others. The most morbid conditions were considered and workup was based on these. Patient was initially started on 1 L warmed lactated Ringer's in addition to the Flaco hugger. He was loaded with 2 g of IV Keppra. Workup in the Emergency Department included: CT head without contrast, CT chest pulmonary embolism protocol, CT abdomen pelvis with IV contrast, CBC with differential, VBG with lactate, troponin, CMP, magnesium level, BNP, CBC with differential, CK, alcohol level, UA, UDS, rapid COVID and flu testing, blood cultures, EKG. Patient did have some vomiting while he was here in the emergency department. He was administered 2 rounds of 4 mg IV Zofran. CBC shows leukopenia with white blood cell count of 3.2, platelets mildly low at 137. Hemoglobin mildly low at 13.7, hematocrit 40.1. Mild acidosis with pH of 7.28, pCO2 normal at 50.1, bicarb normal at 23, mild elevation in lactic acid at 2.4. Mild hyponatremia at 135 but electrolytes otherwise within normal limits. Mildly elevated anion gap 17.2, likely related to elevated lactic acid. Creatinine low at 0.2, BUN of 6. Glucose at this time of 153. Elevated liver enzymes of 196, ALT of 106, alk phos of 254. Initial Trope less than 0.01. BNP normal at 23.4. Urinalysis shows 10-20 red blood cells, 2+ protein, negative ketones, negative nitrates, negative leukocyte Estrace and only 3-5 white blood cells. No evidence of urinary tract infection. UDS is positive for benzos, however patient did receive Versed prior to arrival. Patient's alcohol level is elevated at 37. Negative flu and COVID testing. CT imaging was interpreted by me personally. No acute intracranial hemorrhage, mass or midline shift. Patient does have cholelithiasis without evidence of cholecystitis. Patient does have gastric varices and possible portal hypertension. Patient has bowel wall thickening of the stomach and small bowel could be fuels sales representative of gastroenteritis. CT pulmonary embolism shows no aortic dissection, no pulmonary embolism. There are subtle groundglass opacities in the mid lower lungs bilaterally that could represent aspiration pneumonitis versus developing pneumonia. Given concern for sepsis, will cover patient with broad-spectrum antibiotics, Rocephin and azithromycin. On reassessment, patient has improved some and he is alert and answering most questions appropriately. He does state that he drinks alcohol but is unable to recall when his last drink was. He does appear confused somewhat to recent events and does appear somewhat postictal currently. He is unable to tell me if he drinks every day. He believes that he takes Keppra but is not sure if he has missed any doses. He is unsure what dosage of Keppra that he is supposed to take. Given this, is felt that patient will need admission and likely neurology consultation, we will reach out to the emergency of [place] and are pending callback at this time. Is felt that patient likely has sepsis given his leukopenia, hypoglycemia and hypothermia with pneumonia, which possibly lowered his seizure threshold. Patient's care was handed off to Dr. Lee, pending [facility] callback. <Russ Lee MD - Last Filed: 04/11/25 01:17> Vital Signs: 04/10/25 19:14 04/10/25 19:45 04/10/25 20:01 Temperature 93 F L Temperature Source Rectal Pulse Rate Pulse Rate [Right Brachial] 81 Respiratory Rate 14 11 L 13 Blood Pressure 162/103 H 159/108 H Blood Pressure [Right Arm] 120/86 Blood Pressure Mean [Right Arm] 97 Blood Pressure Source [Right Arm] Automatic Cuff Blood Pressure Position Blood Pressure Position [Right Arm] Supine 02 Sat by Pulse Oximetry 100 Oxygen Delivery Method Room Air 04/10/25 20:05 04/10/25 20:09 04/10/25 20:30 Temperature 97.6 F Temperature Source Oral Pulse Rate 77 Pulse Rate [Right Brachial] Respiratory Rate 9 L 12 12 Blood Pressure 165/103 H 165/103 H 167/112 H Blood Pressure [Right Arm] Blood Pressure Mean [Right Arm] Blood Pressure Source [Right Arm] Blood Pressure Position Supine Blood Pressure Position [Right Arm] 02 Sat by Pulse Oximetry 100 Oxygen Delivery Method Room Air 04/10/25 21:00 04/10/25 21:30 04/10/25 22:30 Temperature Temperature Source Pulse Rate 98 H Pulse Rate [Right Brachial] Respiratory Rate 14 12 19 Blood Pressure 184/112 H 177/112 H 164/91 H Blood Pressure [Right Arm] Blood Pressure Mean [Right Arm] Blood Pressure Source [Right Arm] Blood Pressure Position Blood Pressure Position [Right Arm] 02 Sat by Pulse Oximetry 99 Oxygen Delivery Method 04/10/25 23:00 04/10/25 23:30 04/11/25 00:00 Temperature Temperature Source Pulse Rate 98 H Pulse Rate [Right Brachial] Respiratory Rate 24 27 H 26 H Blood Pressure 132/85 137/88 134/94 H Blood Pressure [Right Arm] Blood Pressure Mean [Right Arm] Blood Pressure Source [Right Arm] Blood Pressure Position Blood Pressure Position [Right Arm] 02 Sat by Pulse Oximetry 98 Oxygen Delivery Method 04/11/25 00:15 04/11/25 00:30 04/11/25 01:00 Temperature Temperature Source Pulse Rate 99 H 90 Pulse Rate [Right Brachial] Respiratory Rate 26 H 23 24 Blood Pressure 147/92 H 148/93 H Blood Pressure [Right Arm] Blood Pressure Mean [Right Arm] Blood Pressure Source [Right Arm] Blood Pressure Position Blood Pressure Position [Right Arm] 02 Sat by Pulse Oximetry 99 99 Oxygen Delivery Method Lab Data Lab Results 04/10/25 19:41: WBC 3.2 L, RBC 4.67, Hgb 13.7 L, Hct 40.1 L, MCV 85.9, MCH 29.3, MCHC 34.2, RDW 11.9, Plt Count 137 L, MPV 9.4, Neut % (Auto) 78.6, Lymph % (Auto) 17.4, [place] % (Auto) 2.8, Eos % (Auto) 0.3, Baso % (Auto) 0.6, Neut # (Auto) 2.5, Lymph # (Auto) 0.6 L, [place] # (Auto) 0.1, Eos # (Auto) 0.0, Baso # (Auto) 0.0, VBG pH 7.28 L, VBG pCO2 50.1, VBG pO2 80.1 H, VBG HCO3 23.0, VBG Total CO2 24.6, VBG O2 Saturation 94.5 H, VBG Base Excess -3.7 L, VBG Lactic Acid 2.4 H, Sodium 135 L, Potassium 4.2, Chloride 99, Carbon Dioxide 23, Anion Gap 17.2 H, BUN 6 L, Creatinine 0.20 L, Estimated Creat Clear 455 H, Estimated GFR 551, Est GFR ( Amer) 667, Glucose 153 H, Calcium 8.4, Magnesium 1.6, Total Bilirubin 0.4, AST 196 H, ALT 106 H, Alkaline Phosphatase 254 H, Total Creatine Kinase 81, Troponin I < 0.01, NT-Pro-B Natriuret Pep 23.4, Total Protein 8.7 H, Albumin 4.5, Globulin 4.2 H, Albumin/Globulin Ratio 1.1, P lasma/Serum Alcohol 37 H, HCV Ab TERESA w/Rflx PCR Qn Negative, HIV Ag/Ab Combo Qual Negative 04/10/25 20:10: SARS-CoV-2 (PCR) Not detected, Influenza A Untype (PCR) Not detected, Influenza Type B (PCR) Not detected 04/10/25 20:15: Urine Color Yellow, Urine Appearance Clear, Urine pH 6.0, Ur Specific [place] 1.025, Urine Protein 2+ A, Urine Glucose (UA) Trace, Urine Ketones Negative, Urine Blood 3+ A, Urine Nitrate Negative, Urine Bilirubin Negative, Urine Urobilinogen 0.2, Ur Leukocyte Esterase Negative, Urine RBC 10- 20, Urine WBC 3-5, Ur Squamous Epith Cells 3-5, Urine Bacteria 1+ 04/10/25 20:17: Urine Opiates Screen Negative, Urine Methadone Screen Negative, Ur Barbituates Screen Negative, Ur Phencyclidine Scrn Negative, Ur Amphetamines Screen Negative, U Benzodiazepines Scrn Positive H, Urine Cocaine Screen Negative, U Marijuana (THC) Screen Negative Orders (Tests/Meds): ED MEDICATIONS Generic Name Dose Route Start Last Admin Trade Name Freq PRN Reason Stop Dose Admin Ceftriaxone Sodium 2 gm/ 100 mls @ 200 mls/hr 04/10/25 23:30 04/10/25 23:47 Sodium Chloride IV 04/20/25 23:29 200 mls/hr Q24H ENRIQUE Administration Azithromycin 500 mg/ Sodium 250 mls @ 250 mls/hr 04/10/25 23:30 04/10/25 23:37 Chloride IV 04/20/25 23:29 250 mls/hr Q24H ENRIQUE Administration Sodium Chloride 10 ml 04/10/25 21:30 04/10/25 21:30 Sodium Chloride 0.9% 10ml Syr (Rad Only) IV 05/10/25 21:29 10 ml NEEDED PRN Administration Maintain IV Site Discontinued Medications Generic Name Dose Route Start Last Admin Trade Name Freq PRN Reason Stop Dose Admin Dextrose 50 ml 04/11/25 01:04 Dextrose 50% 50ml Syringe (Crash Cart) IVP 04/11/25 01:05 ONCE ONE Lactated Ringer's 1,000 mls @ 999 mls/hr 04/10/25 19:13 04/10/25 22:09 Lactated Ringer's 1000 Ml Bag IV 04/10/25 20:13 Infused .Q1H1M ONE Infusion Levetiracetam 2,000 mg/ Sodium 120 mls @ 240 mls/hr 04/10/25 19:30 04/10/25 20:21 Chloride IV 04/10/25 19:31 Infused ONCE ONE Infusion Iopamidol 80 ml 04/10/25 21:30 04/10/25 21:30 Iopamidol-370 (76%);100ml Bottle IV 04/10/25 21:31 80 ml ONCE ONE Administration Ondansetron HCl 4 mg 04/10/25 20:26 04/10/25 20:27 Ondansetron 4mg/2ml Vial IV 04/10/25 20:27 4 mg ONCE ONE Administration Ondansetron HCl 4 mg 04/10/25 21:18 04/10/25 21:40 Ondansetron 4mg/2ml Vial IV 04/10/25 21:19 4 mg ONCE ONE Administration Sodium Chloride 50 ml 04/10/25 21:30 04/10/25 21:30 0.9 % Sodium Chloride 50 Ml Vial IV 04/10/25 21:31 50 ml ONCE ONE Administration ORDERS Category Date Time Status CT abdomen pelvis w con Stat Cat Scan 04/10/25 19:[address] angio chest PE protocol Stat Cat Scan 04/10/25 19:[address] head/brain wo con Stat Cat Scan 04/10/25 19:12 Completed BNP [NT Pro Brain Natriuretic Pep.] Stat Lab 04/10/25 19:41 Completed CBC w/Auto Diff [Complete Blood Count Auto Diff] Stat Lab 04/10/25 19:41 Completed CK [Creatine Kinase] Stat Lab 04/10/25 19:41 Completed CMP [Comprehensive Metabolic Panel] Stat Lab 04/10/25 19:41 Completed Ethyl Alcohol Stat Lab 04/10/25 19:41 Completed HIV Combo Routine Lab 04/10/25 19:41 Completed Hepatitis C Ab Qual. W/ RFX Routine Lab 04/10/25 19:41 Completed Lactic Acid Follow Up (RFLX 1) Stat Lab 04/10/25 23:59 Ordered Magnesium Stat Lab 04/10/25 19:41 Completed Rapid PCR Covid and Flu A/B Stat Lab 04/10/25 20:10 Completed Troponin I Q3H Lab 04/11/25 01:15 Ordered Troponin I Stat Lab 04/10/25 19:41 Completed UA [Urinalysis and Microscopic] Stat Lab 04/10/25 20:15 Completed UDS [Drug Screen,Urine] Stat Lab 04/10/25 20:17 Completed Blood Culture Stat Micro 04/10/25 20:32 Received VBG [Venous Blood Gas] Stat RT 04/10/25 19:41 Completed Medical Decision Narrative: Ariel Winter is a 34y male with a past medical history of insulin-dependent diabetes, reported history of seizures per EMS who presents to the emergency department via EMS for altered mental status. Per EMS, patient was found down and was minimally responsive. Patient's blood sugar at that time was found to be in the 40s. He received IV dextrose and route with improvement of blood sugar of 180s on arrival. Per EMS, he had seizure-like activity and route and received 5 of Versed that resolved the issue. Is unclear if patient speaks Haitian at this time the patient is able to tell me his name. He does appear confused. Intermittently following commands. 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 Patient was noted to be hypothermic on arrival to 93 Fahrenheit was placed on a Flaco hugger and 1 L warm lactated ringer was started. On arrival, patient is initially normotensive with blood pressure 120/86, heart rate 81, breathing 14 times a minute. He is hypothermic with temperature of 93 rectally. O2 sat 100% on room air. Physical exam, stated above, revealed an ill appearing male in no respiratory distress. He is GCS of 13-14 due to confusion and intermittently following commands. Pupils are equal round and reactive to light. No focal neurological deficits. He is status post left BKA. No evidence of infection externally to this wound. He appears pale. Cardiopulmonary exam is unremarkable. Abdomen is soft and nontender. Per cousin Silvia, patient's brother does not speak Haitian but knows the most about his health care. She does note that he has a history of diabetes and seizures. Reportedly, he had been acting normally today, doing laundry and then laid down to sleep. At that time, they had difficulty waking him up and it seems like an ambulance was called for unresponsiveness. She does state that he takes medication for seizures but does not know what medication he takes. She is not sure where his neurologist or primary care physicians are. She is going to attempt to contact patient's brother and call back with more information. Silvia called back after discussing case with patient's brother. States that his diabetes doctors and neurologist are at the [facility]. She does state he is supposed to take medication for his seizures although she is not sure if he actually takes it. Differential diagnosis includes, but is not limited to: sepsis, breakthrough seizure, medical noncompliance, alcohol withdrawal, intracranial hemorrhage, intracranial mass, pneumonia, intra-abdominal infection, urinary tract affection, drug use, among others. The most morbid conditions were considered and workup was based on these. Patient was initially started on 1 L warmed lactated Ringer's in addition to the Flaco hugger. He was loaded with 2 g of IV Keppra. Workup in the Emergency Department included: CT head without contrast, CT chest pulmonary embolism protocol, CT abdomen pelvis with IV contrast, CBC with differential, VBG with lactate, troponin, CMP, magnesium level, BNP, CBC with differential, CK, alcohol level, UA, UDS, rapid COVID and flu testing, blood cultures, EKG. Patient did have some vomiting while he was here in the emergency department. He was administered 2 rounds of 4 mg IV Zofran. CBC shows leukopenia with white blood cell count of 3.2, platelets mildly low at 137. Hemoglobin mildly low at 13.7, hematocrit 40.1. Mild acidosis with pH of 7.28, pCO2 normal at 50.1, bicarb normal at 23, mild elevation in lactic acid at 2.4. Mild hyponatremia at 135 but electrolytes otherwise within normal limits. Mildly elevated anion gap 17.2, likely related to elevated lactic acid. Creatinine low at 0.2, BUN of 6. Glucose at this time of 153. Elevated liver enzymes of 196, ALT of 106, alk phos of 254. Initial Trope less than 0.01. BNP normal at 23.4. Urinalysis shows 10-20 red blood cells, 2+ protein, negative ketones, negative nitrates, negative leukocyte Estrace and only 3-5 white blood cells. No evidence of urinary tract infection. UDS is positive for benzos, however patient did receive Versed prior to arrival. Patient's alcohol level is elevated at 37. Negative flu and COVID testing. CT imaging was interpreted by me personally. No acute intracranial hemorrhage, mass or midline shift. Patient does have cholelithiasis without evidence of cholecystitis. Patient does have gastric varices and possible portal hypertension. Patient has bowel wall thickening of the stomach and small bowel could be fuels sales representative of gastroenteritis. CT pulmonary embolism shows no aortic dissection, no pulmonary embolism. There are subtle groundglass opacities in the mid lower lungs bilaterally that could represent aspiration pneumonitis versus developing pneumonia. Given concern for sepsis, will cover patient with broad-spectrum antibiotics, Rocephin and azithromycin. On reassessment, patient has improved some and he is alert and answering most questions appropriately. He does state that he drinks alcohol but is unable to recall when his last drink was. He does appear confused somewhat to recent events and does appear somewhat postictal currently. He is unable to tell me if he drinks every day. He believes that he takes Keppra but is not sure if he has missed any doses. He is unsure what dosage of Keppra that he is supposed to take. Given this, is felt that patient will need admission and likely neurology consultation, we will reach out to the [facility] [place] and are pending callback at this time. Is felt that patient likely has sepsis given his leukopenia, hypoglycemia and hypothermia with pneumonia, which possibly lowered his seizure threshold. Patient's care was handed off to Dr. Lee, pending [facility] callback. Lee: Upon my assumption of care patient is stable, he is more alert and answering orientation questions appropriately. He does confirm to me that he takes his Keppra as directed, reporting he takes 4 pills of it daily. It took an extensive amount of time for [facility] to call back but eventually I was able to speak with transfer center Dr. Caicedo and general neurology physician Dr. Thompson. After reviewing this case, Dr. Thompson had initially recommended lacosamide which is not on formulary here. She then recommended oxcarbazepine, however after further discussion Dr. Caicedo indicated that [facility] is not currently on divert so they would be able to accept this patient for transfer. Therefore oxcarbazepine is not going to be administered in the ER here and I am going to transfer the patient to their facility for further evaluation and management since Dr. Thompson would really prefer the patient be started on lacosamide rather than oxcarbazepine given it covers more broad types of seizures. They are agreeable to this. Prior to transfer blood glucose was checked again and he has become significantly hypoglycemic down to 43. He received an amp of D50. He was not altered when his blood glucose was 43 and did not have any seizure activity. Recheck blood glucose after D50 is []. Dextrose containing fluids have been started for continuous infusion. On reassessment immediately prior to transfer patient is a GCS 15, he remains stable. No seizure activity, protecting his airway. He is appropriate for transfer at this time. Patient transferred by ALS ambulance to [facility]. Transferred in stable condition. Critical Care <Darvin Bernstein MD - Last Filed: 04/11/25 00:31> Critical Care Time Critical Care Time: Yes Attestation: On 04/10/25, the high probability of a clinically significant, sudden or life threatening deterioration of the following system(s) required my full and direct attention, intervention and personal management. The time I documented below is in addition to time spent performing reported procedures but includes the following listed in this critical care notation. Total Time Total Critical Care Time: 35
[2025-04-10] MEDS: levETIRAcetam 2,000 MG in 0.9 % SODIUM CHLORIDE 100 ML 240 MG IV (19:43)
[2025-04-10 19:57] LABS: Hematocrit 40.1 % (42.0-52.0); Hemoglobin 13.7 g/dL (14.1-18.0); Immature Granulocytes % 0.3 %; Mean Corpuscular HGB Conc 34.2 g/dL (31.8-35.4); Mean Corpuscular Hemoglobin 29.3 pg (27.0-31.2); Mean Corpuscular Volume 85.9 fl (80-94); Nucleated Red Blood Cells % 0 %; Platelet Count 137 K/mm3 (142-424); Red Blood Count 4.67 M/mm3 (4.60-6.20); Red Cell Distribution Width-SD 37.3 fL; White Blood Count 3.2 K/mm3 (4.8-10.8)
[2025-04-10 20:04] LABS: VBG HCO3 23.0 mmol/L (23-30); VBG PCO2 50.1 mmol/L (35-51); VBG PH 7.28 mmol/L (7.31-7.41); VBG PO2 80.1 mmol/L (28-40)
[2025-04-10 20:07] LABS: Lactate Venous 2.4 mmol/L (0.4-2.0)
[2025-04-10 20:24] LABS: Coronavirus 19, PCR Not Detected (NotDetected); Influenza A, PCR Not Detected (NotDetected); Influenza B, PCR Not Detected (NotDetected)
[2025-04-10 20:24] LABS: Microscopic, Urine URINE MICROSCOPIC (MICROSCOPIC)
[2025-04-10 20:27] LABS: Albumin Level 4.5 g/dl (3.5-5.0); Chloride 99 mmol/L (98-107); Potassium 4.2 mmoL/L (3.5-5.1); Sodium 135 mmol/L (136-145)
[2025-04-10] MEDS: ONDANSETRON 4MG/2ML VIAL 4 MG IV ×2 (20:27→21:40)
[2025-04-10 20:28] LABS: Bilirubin,Urine Negative (Negative); Color,Urine YELLOW (Yellow); Glucose,Urine (UA) TRACE (Negative); Ketones,Urine Negative (Negative); Leukocyte Esterase,Urine Negative (Negative); PH,Urine 6.0 (5.0-8.5); Protein,Urine 2+ (Negative); Specific Gravity, Urine 1.025 (1.005-1.030); Urobilinogen,Urine 0.2 EU/dl (0.2)
[2025-04-10 20:30] LABS: Alanine Aminotransferase 106 U/L (12-78); Albumin/Globulin Ratio 1.1 (1.1-1.8); Alkaline Phosphatase 254 U/L (38-126); Anion Gap 17.2 mEq/L (5-15); Aspartate Amino Transferase 196 U/L (17-59); Bilirubin,Total 0.4 mg/dl (0.2-1.3); Blood Urea Nitrogen 6 mg/dl (9-20); Calcium 8.4 mg/dl (8.4-10.2); Carbon Dioxide 23 mmol/L (22.0-30.0); Creatine Kinase 81 U/L (55-170); Creatinine Clearance Estimated 455 mL/min (50-200); Estimated Glomerular Filt Rate 551 ml/min (>60); GFR (African American) 667 ML/MIN (>60); Globulin 4.2 g/dL (1.3-3.2); Glucose 153 mg/dl (74-100); Magnesium 1.6 mg/dl (1.6-2.3); Total Protein,Serum 8.7 g/dl (6.3-8.2)
[2025-04-10 20:39] LABS: NT Pro Brain Natriuretic Pep. 23.4 pg/mL (0-125)
[2025-04-10 20:40] LABS: Barbiturates Screen,Urine Negative ng/ml (<200)
[2025-04-10 20:41] LABS: Amphetamine/Metha Screen,Urine Negative ng/ml (<1000); Benzodiazepines Screen,Urine Positive ng/ml (<200)
[2025-04-10 20:42] LABS: Methadone Screen,Urine Negative ng/ml (<300)
[2025-04-10 20:44] LABS: Opiate Screen,Urine Negative ng/ml (<300); Phencyclidine Screen,Urine Negative ng/ml (<25)
[2025-04-10 20:46] LABS: Troponin I < 0.01 ng/ml (0.00-0.034)
[2025-04-10 20:48] LABS: Bacteria,Urine 1+ /lpf
[2025-04-10] MEDS: 0.9 % SODIUM CHLORIDE 50 ML VIAL IV (21:30)
[2025-04-10] MEDS: SODIUM CHLORIDE 0.9% 10ML SYR (RAD ONLY) 10 ML IV (21:30)
[2025-04-10] MEDS: IOPAMIDOL-370 (76%);100ML BOTTLE 80 ML IV (21:30)
[2025-04-10 21:46] LABS: Creatinine,Serum 0.20 mg/dl (0.66-1.25)
[2025-04-10 23:11] LABS: Hepatitis C Ab Qual. W/ RFX NEGATIVE (Negative)
[2025-04-10] MEDS: AZITHROMYCIN 500 MG in 0.9 % SODIUM CHLORIDE 250 ML 250 MG IV (23:37)
[2025-04-10 23:59] LABS: Reflex Lactic Add Lactic Reflex
[2025-04-11] VITALS: BP 134/94; PULSE 98; RESP 26; O2SAT 98
[2025-04-11 00:15] VITALS: PULSE 99; RESP 26; O2SAT 99
[2025-04-11 00:30] VITALS: BP 147/92; RESP 23
[2025-04-11 01:00] VITALS: BP 148/93; PULSE 90; RESP 24; O2SAT 99
[2025-04-11] MEDS: DEXTROSE 50% 50ML SYRINGE (CRASH CART) 50 ML IVP (01:13)
[2025-04-11 01:26] LABS: Lactic Acid Follow Up (RFLX 1) 0.7 mmol/L (0.7-2.1)
[2025-04-11 01:29] VITALS: BP 148/83; PULSE 96; RESP 17; TEMP 37.2; O2SAT 99
[2025-04-11 01:45] LABS: Troponin I < 0.01 ng/ml (0.00-0.034)
--- NOTE | 2025-04-11 02:04 | PC.NURSE ---
pt up to bedside commode for BM
== END 2025-04-11 02:23 | disposition short-term general hospital (02) ==
PROVIDERS: Emergency Provider Student in an Organized Health Care Education/Training Program
DX: A41.9 Sepsis, unspecified organism (principal); E11.649 Type 2 diabetes mellitus with hypoglycemia without coma; R56.9 Unspecified convulsions; J18.9 Pneumonia, unspecified organism; R68.0 Hypothermia, not associated with low environmental temperature; D72.819 Decreased white blood cell count, unspecified; I85.00 Esophageal varices without bleeding; I86.4 Gastric varices; F10.90 Alcohol use, unspecified, uncomplicated; Y90.1 Blood alcohol level of 20-39 mg/100 ml; Z79.4 Long term (current) use of insulin; E16.A2 Hypoglycemia level 2
CPT/HCPCS: 70450; 71275; 74177; 80053; 80307; 80320; 81001; 82550; 82803; 83605; 83735; 83880; 84484; 85025; 86803; 87040; 87389; 87636; 93005; 96361; 96365; 96366; 96367; 96375; 96376; 99285; 99291; J0456; J0696; J1953; J2405; J7042; J7050; J7120; Q9967

== ENCOUNTER 2025-05-21 06:45 | Emergency (ER) | payer OTHER, SELFPAY ==
--- OUTSIDE RECORDS SUMMARY | 2025-04-11 03:09 | XMS_ITS | Encounter Summary ---
Author Organization Healthcare Address [address] [place] [address] Care Team Providers Care Non Destructive Evaluation Manager Name Role Phone Pcp, No Primary Care Provider Unavailabl e Reason for Visit * Reason Comments Altered Mental Status Encounter Details Date Type Department Care Team (Late st Contact Info) Description 04/11/2025 3:09 AM EDT - 04/11/2025 7:53 AM EDT Emergency [facility] [address] [place] [address] Saravanan Isidro MD [address] [place] [address] Seizure (CMS/HCC) (Primary Dx); Hypoglycemia Discharge Disposition: Home or Self Care Social History Tobacco Use Types Packs/Day Years Used Date Smoking Tobacco: Former Cigarettes Q uit: 06/28/2023 Passive Smoke Exposure: Past Smokeless Tobacco: Never Comments:N/a Alcohol Use Standard Drinks/Week Comments Not [...] week 06/12/2024 How often do you attend [facility] or episcopalian services? Patient unable to answer 06/12/2024 Do you belong to any clubs o r organizations such as amish groups, unions, fraternal or athletic groups, or [...] Recorded Patient Health Questionnaire-2 Score 0 08/10/2024 [facility] - Occupational Stress [...] place to sleep or slept in a penitentiary (including now)? No 06/12/2024 PHQ-9 Answer Date [...] drink first t rebekah in the morning (EYE-ROD DRAWER) to steady your nerves or to get [...] on file Sexual Orientation Not on file documented as of this encounter Last Filed Vital Signs Vital Sign Reading Time Taken Comments Blood Pressure 119/79 04/11/2025 6:30 AM EDT Pulse 96 04/11/2025 6:30 AM EDT Temperature 36.9 C (98.4 F) 04/11/2025 6:30 AM EDT Respiratory Rate 17 04/11/2025 6:30 AM EDT Oxygen Saturation 100% 04/11/2025 6:30 AM EDT Inhaled Oxygen Concentration - - Weight 58.6 kg (129 lb 3 oz) 04/11/2025 3:27 AM EDT Height - - Body Mass Index 24.41 08/29/2024 1:01 PM EST documented in this encounter Functional Status * Calculated C-SSRS Risk Score (Lifetime/Recent) Answer Date of Assessment Author No Risk Indicated 04/11/2025 3:42 AM EDT Zena Avendano RN * Question Answer Date of Assessment Author 1. Wish to be (Past 1 Month) No 025 3:42 AM EDT Zena Avendano RN 2. Non-Specific Active Suici karena Thoughts (Past 1 Month) No 04/11/2025 3:42 AM EDT Lily Avendano RN 6. Suicidal Behavior (Lifetime) No 3:42 AM EDT Zena Avendano RN documented as of this encounter Discharge Instructions * Discharge Instructions* Vitaly Oviedo MD - 04/11/2025 6:16 AM EDT You were seen and evaluated in the Emergency Department. Please return to ED if your symptoms worsen, change in location, change in severity, new symptoms develop or if you become concerned for your health. Please follow-up with your PCP within 2 days for your symptoms.Continue taking keppra 2000mgtwice daily. Begin taking lacosamide 100mg twice daily. Please follow up outpatient with Neurology in clinic. documented in this encounter Medications at Time of Discharge acetaminophen (Tylenol) 500 MG tablet Take 650 mg by mouth every 6 (six) hours if needed for pain. acetone, urine, test strip 1 strip if needed for high blood sugar. 25 each 08/29/2024 Alcohol Sheets (Alcoh-Wipe) sheet Use as directed. 300 each 11 06/21/2024 Blood Glucose Monitoring Suppl (Blood Glucose Monitor System) w/Device kitIndications:Typ e 1 diabetes mellitus with other specified complication Use to check glucose readings 3 times a day 1 kit 2024 Blood Glucose Monitoring Suppl device Test three times daily 1 each 06/21/2024 calcium carbonate (Tums) 500 MG chewable tablet Chew 1 tablet (500 mg) 3 (three) times a day. 06/21/2024 collagenase (Santyl) 250 UNIT/GM ointment Apply to wound over outer left side of left leg, once daily for 2 weeks 30 g 07/27/2024 Continuous Glucose Tail End Rider (Dexcom G7 Tail End Rider) device 1 each 1 (one) time each day. 1 each 08/29/2024 Continuous Glucose Sensor (Dexcom G7 Sensor) misc 1 sensor every 10 (ten) days. 9 each 1 08/29/2024 cyclobenzaprine (Flexeril) 10 MG tablet Take 1 tablet (10 mg) by mouth every 8 (eight) hours if needed. 08/09/2024 ergocalciferol (Vitamin D-2) 1.25 MG (81542 UT) capsule Take 1 capsule (50,000 Units) by mouth 1 (one) time per week. 06/22/2024 glucose blood test stripIndications:T ype 1 diabetes mellitus with other specified complication Use to check blood glucose 3 times a day 270 each 3 2024 insulin glargine (Lantus SoloStar, Basaglar) 100 UNIT/ML injection pen Inject 30 Units under the skin nightly. 15 mL 1 12/15/2024 insulin lispro (Admelog, HumaLOG) 100 UNIT/ML injection pen Use 15-20 units before meals three times daily, max daily dose of 75 units 30 mL 1 12/15/2024 Insulin Pen Needle (Pen Miami) 32G X 5 MM misc 1 each 5 times a day. 150 each 2 12/15/2024 lacosamide (Vimpat) 200 mg tablet tablet Take 0.5 tablets by mouth 2 times a day. 30 tablet 04/11/2025 Lancets miscIndications:Ty pe 1 diabetes mellitus with other specified complication Use to check glucose 3 times a day 270 each 3 2024 levETIRAcetam (Keppra) 1000 MG tablet Take 2 tablets (2,000 mg) by mouth 2 (two) times a day. 06/21/2024 melatonin tablet Take by mouth. midodrine (Proamatine) 5 MG tablet Take 1 tablet (5 mg) by mouth 3 (three) times a day. 06/21/2024 neomycin-polymyxin -hydrocortisone (Cortisporin) 3.5-85433-9 otic suspension Administer 4 drops into affected ear(s) twice a day. 09/05/2024 polyethylene glycol (Miralax) 17 GM/SCOOP powder 06/29/2024 senna-docusate (Stool Softener Plus Laxative) 8.6-50 MG tablet 06/29/2024 Sodium Hypochlorite (Dakins, 1/4 strength,) 0.125 % solutionIndication s:Diabetic wet gangrene of the foot Apply dakins to moist gauze and apply to wound daily 473 mL 2 07/27/2024 zonisamide (Zonegran) 50 MG capsule 06/29/2024 documented as of this encounter Miscellaneous Notes * Progress Notes - Blaine Fernandez RN - 04/11/2025 7:40 AM EDT .name Chief Complaint Patient presents with Altered Mental Status RNCM responded to a request to assist pt with discharge transportation. It was determined pt met 300% FPG via secure chat. CM arranged d/c transport via [employer]. Address verified as listed on chart. Ride requested. Details relayed to RN/team. Pt picked-up and taken to address. Patient IND with daily care and will not need help setting up a routine follow up. Case management will continue to follow as needed and able to offer additional resources at request. 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 General Neurology Consult Note Consult to Neurology Consult performed by: Reagan Mcmahon MD Consult ordered by: Saravanan Isidro MD History of Present Illness Ariel Winter is a 34 y.o. 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 Neurology was consulted for breakthrough seizures. Per intake note the patient was seen at an OSH on 04/10/2025 ([facility]) where he was being treated for sepsis (WBC 3.2, hypothermic) with fluids and antibiotics. He received Keppra,dextrose, and benzodiazepines, and had a GCS of 14. CT head was reportedly negative, and EKG was normal. Due to breakthrough seizure despite Keppra monotherapy, neurology was contacted and we recommended adding a second antiepileptic, with a preference for Vimpat if RI interval was normal; however, Vimpat was not available at the outside hospital. Given the need for close monitoring with dual antiepileptic therapy and ongoing sepsis management, Dr. Thompson recommended transfer to for further evaluation. Upon arrival the patient's initial workup showed a CBC remarkable for WBC 7.20, mild anemia. CMP showed mild hyperglycemia, mild hyponatremia, transaminitis, and elevated alk phos. The patient reported that in the morning of 04/10/2025 he was having breakfast, when he started noticing a doom sensation , started feeling anxious, and then he does not remember anything else, reportedly had a tonic clonic seizure after the administration of the D5 from EMS, and he reported to me that he has been compliant with his ASMs. Review of Systems Assessed and negative unless stated otherwise Past Medical History: Past Medical History[1] Past Surgical History: Surgical History[2] Social History: Tobacco: Tobacco Use: Low Risk (01/17/2025) Received from [facility] Patient History Smoking Tobacco Use: Never Smokeless Tobacco Use: Never Passive Exposure: Never Alcohol: Alcohol Use: Patient Unable To Answer (06/12/2024) AUDIT-C Frequency of Alcohol Consumption: Patient unable to answer Average Number of Drinks: Patient unable to answer Frequency of Binge Drinking: Patient unable to answer Illicit drug use: Social History Substance and Sexual Activity Drug Use Never Allergies: Allergies[3] Family Medical History: family history includes Diabetes in his maternal grandfather, mother, and paternal grandmother; No Known Problems in his brother, daughter, father, maternal grandmother, paternal grandfather, sister,and son. Home Medications: Prior to Admission medications Medication Sig Start Date End Date Taking? Authorizing Provider acetaminophen (Tylenol) 500 MG tablet Take 650 mg by mouth every 6 (six) hours if needed for pain. Patient not taking: Reported on 09/26/2024 Provider, Historical acetone, urine, test strip 1 strip if needed for high blood sugar. 08/29/24 Porsha Machado APRN Alcohol Sheets (Alcoh-Wipe) sheet Use as directed. 06/21/24 Melony Putnam PA amitriptyline (Elavil) 50 MG tablet Take 1 tablet (50 mg) by mouth every night. 08/10/24 10/09/24 Ashok Baxter MD Blood Glucose Monitoring Suppl (Blood Glucose Monitor System) w/Device kit Use to check glucose readings 3 times a day 06/30/24 Porsha Machado APRN Blood Glucose Monitoring Suppl device Test three times daily 06/21/24 Melony Putnam PA calcium carbonate (Tums) 500 MG chewable tablet Chew 1 tablet (500 mg) 3 (three) times a day. 06/21/24 Srinivasa Brewster MD collagenase (Santyl) 250 UNIT/GM ointment Apply to wound over outer left side of left leg, once daily for 2 weeks 07/27/24 Nabil Putnam MD Continuous Glucose Tail End Rider (Dexcom G7 Tail End Rider) device 1 each 1 (one) time each day. 08/29/24 Porsha Machado APRN Continuous Glucose Sensor (Dexcom G7 Sensor) misc 1 sensor every 10 (ten) days. 08/29/24 Porsha Machado APRN cyclobenzaprine (Flexeril) 10 MG tablet Take 1 tablet (10 mg) by mouth every 8 (eight) hours if needed. Patient not taking: Reported on 09/26/2024 08/09/24 Provider, Historical ergocalciferol (Vitamin D-2) 1.25 MG (29888 UT) capsule Take 1 capsule (50,000 Units) by mouth 1 (one) time per week. 06/22/24 Srinivasa Brewster MD gabapentin (Neurontin) 300 MG capsule Take 1 capsule (300 mg) by mouth every night for 3 days, THEN1 capsule (300 mg) 2 (two) times a day for 3 days, THEN 1 capsule (300 mg) 3 (three) times a day. Patient not taking: Reported on 09/26/2024 07/27/24 09/01/24 Nabil Putnam MD glucose blood test strip Use to check blood glucose 3 times a day 06/30/24 Porsha Machado APRN insulin glargine (Lantus SoloStar, Basaglar) 100 UNIT/ML injection pen Inject 30 Units under the skin nightly. 12/15/24 12/15/25 Porsha Machado APRN insulin lispro (Admelog, HumaLOG) 100 UNIT/ML injection pen Use 15-20 units before meals three times daily, max daily dose of 75 units 12/15/24 Porsha Machado APRN Insulin Pen Needle (Pen Miami) 32G X 5 MM misc 1 each 5 times a day. 12/15/24 Porsha Machado APRN Lancets misc Use to check glucose 3 times a day 06/30/24 Porsha Machado APRN levETIRAcetam (Keppra) 1000 MG tablet Take 2 tablets (2,000 mg) by mouth 2 (two) times a day. 06/21/24 Srinivasa Brewster MD melatonin tablet Take by mouth. Provider, Historical methocarbamol (Robaxin) 750 MG tablet Take 1 tablet (750 mg) by mouth every 8 (eight) hours if needed for muscle spasms. Patient not taking: Reported on 09/26/2024 07/27/24 08/26/24 Nabil Putnam MD midodrine (Proamatine) 5 MG tablet Take 1 tablet (5 mg) by mouth 3 (three) times a day. Patient not taking: Reported on 09/26/2024 06/21/24 Srinivasa Brewster MD nocxpcta-mgqupujwg-qtmkzeygwshyzb (Cortisporin) 3.5-35294-2 otic suspension Administer 4 drops intoaffected ear(s) twice a day. 09/05/24 Provider, Historical polyethylene glycol (Miralax) 17 GM/SCOOP powder 06/29/24 Provider, Historical senna-docusate (Stool Softener Plus Laxative) 8.6-50 MG tablet 06/29/24 Provider, Historical Sodium Hypochlorite (Dakins, 08/26 strength,) 0.125 % solution Apply dakins to moist gauze and apply to wound daily 07/27/24 Jarred Harmon MD zonisamide (Zonegran) 50 MG capsule 06/29/24 Provider, Historical Objective Vitals: 04/11/25 0326 04/11/25 0327 BP: 133/88 BP Location: Right arm Patient Position: Lying Pulse: 95 Resp: 20 Temp: 36.8 ??C (98.3 ??F) TempSrc: Oral SpO2: 100% Weight: 58.6 kg (129 lb 3 oz) Physical Exam: Constitutional: Patient in no acute distress. Patient appears stated age. Ears, Nose, Mouth, Throat: Mucous membranes appear moist. No appreciable hearing impairment. Nares patent. Eyes: Anicteric sclera. No appreciable conjunctival injection. Cardiovascular: Appears well-perfused. No appreciable edema. Respiratory: Symmetric chest expansion. Non-labored breathing. Gastrointestinal: No appreciable abdominal distention. Genitourinary: No Obrien catheter present. No appreciable bladder distention. Musculoskeletal: Left BKA. Psychiatric: Appropriate mood and affect. Patient is cooperative. Neurological: Mental Status: A&O x4, interactive, able to follow commands Speech: Intact articulation, fluent language Cortical: No Extinction CN: II - PERRLA, VF full III, IV, - EOMI V - Facial sensation intact VII - Brow raise and smile symmetrical VIII - Auditory acuity intact IX, X - Palate elevation symmetric, uvula midline XI - SCM and Trapezius strength intact XII - Tongue protrudes midline, theres a minimal left lateral tongue lac Motor: Normal bulk and tone. No adventitious movements. RUE: 5/5 strength LUE: 5/5 strength RLE: 5/5 strength LLE: 5/5 strength Sensory: Sensation to light touch intact and symmetric in all four extremities Reflexes: Reflexes 2+ and symmetric throughout. No ankle clonus. Plantar reflex downgoing. Coordination: No limb ataxia with [id number]-[id number] or gfqe-ql-ydlw. Gait: Deferred Labs: Labs personally reviewed, notable for WBC 7.20, mild anemia. CMP showed mild hyperglycemia, mild hyponatremia, transaminitis, and elevated alk phos CBC: Results from last 7 days Lab Units 04/11/25 0419 WBC 10*3/uL 7.20 HEMOGLOBIN g/dL 12.6* HEMATOCRIT % 36.3* PLATELETS 10*3/uL 137* CMP/RFP: Results from last 7 days Lab Units 04/11/25 0419 SODIUM mmol/L 132* POTASSIUM mmol/L 4.0 CHLORIDE mmol/L 97 CO2 mmol/L 21* BUN mg/dL 5* CREATININE mg/dL 0.29* CALCIUM mg/dL 7.7* ALBUMIN g/dL 3.6 BILIRUBIN TOTAL mg/dL 0.4 ALKALINE PHOSPHATASE U/L 198* ALT U/L 72* AST U/L 101* GLUCOSE mg/dL 143* Urinalysis: Urine Microscopy: Imaging: CT Head at [facility] personally reviewed, did not show any acute intracranial abnormalities. Butit did showed a small hypodensity in the left basal ganglia concerning for a chronic lacunar stroke XR Chest 2 Views Result Date: 04/11/2025 Impression: No acute finding. CRITICAL RESULT: No. COMMUNICATION: Per this written report. Preliminary report signed by Hira Colvin MD on 04/11/2025 4:04 AM By electronically signing this report, I, the attending physician, attest that I have personally reviewed the images/data for the above exam ination(s) and agree with the final edited report. Drafted by Hira Colvin MD on 04/11/2025 3:59 AM Final report signed by Matty Harrison MD on 04/11/2025 4:31 AM Assessment and Plan Ariel Winter is a 34 y.o. 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 Neurology was consulted for breakthrough seizures. # Concern for Provoked Seizures in the setting of Hypoglycemia # History of Epilepsy # Reported Sepsis at OSH, now resolved (POA) # Concern for Lacunar Stroke, Chronic # Hyponatremia Recommendations - s/p LEV 2 g load at OSH - Resume Levetiracetam 2 g BID - Start Lacosamide 100 mg BID - No indication for rEEG - For secondary stroke prophylaxis: -Start ASA 81 mg -Start Atorvastatin 40 mg QHS - Please order a referral to the Neurology Clinic with joel Waters for Telehealth. We will reach out to our schedulers. - Rest of care per primary team Patient staffed with Dr. Thompson. Thank you for the opportunity to participate in the care of this patient. Please page the general neurology service pager with questions. Reagan Vinson MD PGY-3 Neurology Secure Chat Preferred Dictation software disclaimer: Parts of this note were generated using voice dictation software. Although proofread, there may be spelling errors, changes in dictated words, and words inserted which may have been misinterpreted by voice dictation software. Meaning of words may require interpretation in the appropriate context of the sentence and clinical situation. [1] Past Medical History: Diagnosis Date Diabetes mellitus ([facility]) Pneumonia, unspecified organism 07/06/2024 Seizures ([facility]) Type 1 diabetes mellitus with ketoacidosis without coma ([facility]) 07/06/2024 [2] Past Surgical History: Procedure Laterality Date BELOW KNEE AMPUTATION Left 06/16/2024 [3] Allergies Allergen Reactions Milk (Cow) Diarrhea Cosigned by Marcela Landry MD at 04/11/2025 2:20 PM EDT Associated attestation - Marcela Landry MD - 04/11/2025 2:20 PM EDT I discussed the case with the resident/fellow and agree with the findings and plan as documented. Mr. Winter is a 34 y/o gentleman with T1DM and epilepsy who was seen at OSH after a breakthrough seizure wit prolonged recovery, there was concern for hypoglycemia and sepsis. Given the need for closer monitoring he was transferred to [facility] and on transfer he improved significantly an was back to baseline. We continued keppra 2g BID and started vimpat 100 mg BID and will plan or outpatient work up with MRI brain w and wo. On outside CTH we see a possible chronic lacunar infarct on the left basal ganglia so in the mean time will start secondary prevention but will review MRI brain as outpatient. Marcela Thompson MD Neurology Attending [facility] * ED Provider Notes - Vitaly Oviedo MD - 04/11/2025 3:09 AM EDT Images from the original note were not included. - HPI Chief Complaint Patient presents with Altered Mental Status HPI Patient is a 34-year-old male history of epilepsy on Keppra and type 1 diabetes on insulin, prior BKA who presents to ED from OSH for altered mental status. Patient initially was found down by familymembers and was minimally responsive. Upon arrival by EMS, glucose was 40. Patient was given dextrose bolus EN route and was reported to have seizure-like activity with EMS. Patient was given 5 of Versed with EMS and seizure-like activity head halted. Upon arrival to OSH ED, patient was altered andGCS of 13. Patient was also initially hypothermic to 93?? F. Patient leukopenic with a white blood cell count of 3. CT head was negative for any acute intracranial abnormality. CT chest concerning for possible aspiration with ground-glass opacities present in lower lung benntet. Due to possible breakthrough seizure, [facility] neurology was contacted from OSH and they recommended adding a 2nd antiepileptic, however, Vimpat was not available at OSH. Given need for additional epileptic therapy, patient was transferred to ED for further evaluation. Upon arrival to ED, patient is well-appearing and in no acute distress. Patient is GCS 15. Alert and oriented x3. Following all commands appropriately. Patient is saturating well on room air and afebrile. Patient states that he has been taking his insulin and Keppra medications as prescribed. Denies any recent falls or trauma. Denies any chest pain, abdominal pain or difficulty breathing. Patient History Past Medical History[1] Surgical History[2] Family History[3] Social History[4] Allergies: Allergies[5] Physical Exam ED Triage Vitals Temp Pulse Resp BP -- -- -- -- SpO2 Temp src Heart Rate Source Patient Position -- -- -- -- BP Location FiO2 (%) -- -- Physical Exam Constitutional: General: He is not in acute distress. Cardiovascular: Rate and Rhythm: Normal rate. Pulmonary: Effort: Pulmonary effort is normal. No respiratory distress. Abdominal: Palpations: Abdomen is soft. Musculoskeletal: Cervical back: Normal range of motion. Skin: General: Skin is warm. Capillary Refill: Capillary refill takes less than 2 seconds. Neurological: General: No focal deficit present. Mental Status: He is oriented to person, place, and time. No data recorded ED Course & MDM - Assessment: 34 y.o. male presents to ED with complaint of seizure, AMS. It should be noted that the chronic conditions includes epilepsy, T1DM, which currently is not at goal therapy. This complicates the clinical picture because it Comorbidities: may be exacerbating symptoms, increases the amount and complexity of data to be reviewed, and complicates the clinical workup Differential Diagnosis: Differential diagnosis includes but is not limited to hypoglycemia, hyperglycemia, hyponatremia, hypocalcemia, uremia, thyrotoxicosis, hepatic encephalopathy, medications, alcohol withdrawal, stimulants, encephalitis, meningitis, neurocysticercosis, brain abscess, ICH, SAH, neoplasm, hydrocephalus, epilepsy, hypoxia, cardiac dysrhythmia, vagal or orthostatic syncope, psychogenic, malingering, and cataplexy. In order to fully explore the differential diagnosis the following treatments and tests were ordered: All Other Orders Ordered Status Ordering Provider 04/11/25 0340 Consult to Neurology Once Specialty: Neurology Provider: (Not yet assigned) Completed VITALY OVIEDO 04/11/25 0339 ECG Adult Once Acknowledged VITALY OVIEDO 04/11/25 031 POCT glucose meter PROCEDURE ONCE Final result POCT, GENERIC PROVIDER 04/11/25 0314 Hemoglobin A1c STAT Final result VITALY OVIEDO 04/11/25 031 Beta-Hydroxybutyric Acid STAT Final result VITALY OVIEDO 04/11/25 031 Thyroid Stimulating Hormone, Plasma STAT Final result VITLAY OVIEDO 04/11/25 031 Free T4, Plasma STAT Final result VITALY OVIEDO 04/11/25314 STAT Canceled VITALY OVIEDO 04/11/25314 PROCEDURE ONCE Canceled VITALY OVIEDO 04/11/25 031 PROCEDURE ONCE Canceled VITALY OVIEDO 04/11/25 031 Blood gas panel, venous STAT Final result VITALY OVIEDO 04/11/25 031 C-Reactive protein STAT Final result VITALY OVIEDO 04/11/25312 EKG now - STAT (adult) Once Final result VITALY OVIEDO 04/11/25 031 XR Chest 2 Views Once Final result VITALY OVIEDO 04/11/25312 Blood Culture (Aerobic/Anaerobet Set) STAT Preliminary result VITALY OVIEDO 04/11/25312 CBC w/diff STAT Final result VITALY OVIEDO 04/11/25 031 CMP STAT Final result VITALY OVIEDO ED Course as of 04/13/25 1741 WedApr 11, 2025 0500 Upon initial evaluation, patient is well-appearing and in no acute distress. Patient is hemodynamically stable, saturating well on room air, and grossly without neurological deficits. Patient isGCS 15 and alert and oriented x2, arrival. Patient presented to OSH ED after a soon hypoglycemic, had seizure- like activity pain homeless occurred upon arrival to OSH ED. also concerns for substance at OSH due to initial hypothermia and leukopenia. Patient was bitten Keppra load of 2 g, Rocephin and azithromycin at OSH. CT head was negative for any acute intracranial abnormality. CT chest showed possible aspiration with ground-glass opacities in lung bennett. Due to possible breakthrough seizure, was recommended that patient be started on a 2nd antiepileptic however this was not at OSH so patient was transferred to ED. as stated the patient is well- appearing in no acute distress upon arrival to ED. patient does not appear to be septic. Labs reviewed by myself showed normal white count. No anion gap. No electrolyte abnormalities. EKG independently interpreted by myself and showed no acute ischemic changes present or arrhythmia. Normal sinus rhythm. CXR independently interpreted by myself pulse ox showed no acute cardiopulmonary abnormalities. At this time I consulted neurology to evaluate the patient in the ED due to seizure. After discussion with their service, they recommended brittney Martinit in addition to the Keppra. After their evaluation, they also recommended no admission necessary. They will plan to follow-up with the patient outpatient in clinic. As pt is well-appearing, in no acute distress, saturating well on RA, afebrile, and HDS pt is stable for discharge. Return precautions were discussed. At this time all parties were agreeable with the plan and the pt wasdischarged home. [DK] ED Course User Index [DK] Vitaly Oviedo MD Clinical Impressions as of 04/13/25 1741 Seizure (CMS/HCC) Hypoglycemia Social Determinates of Health Risks (including Economic Stability, Education and level of understanding, Healthcare access and quality and concerning social factors): None identified on this visit Last PDMP Review: Saravanan Isidro MD on 04/11/2025 6:55 AM Ultimately, this patient was Was discharged Home (Discharge) The primary encounter diagnosis was Seizure (CMS/HCC). A diagnosis of Hypoglycemia was also pertinent to this visit. . Patient was counseled on the diagnoses. Discharge medications if anyare listed below. Listed medications are thought be either curative for listed diagnoses or will help control ongoing symptoms. Patient is requested to follow up with Neurology in order to obtain specialty care, further diagnostic testing, and discussion of further treatment options. Instructions on follow up as well as precautions to return to the ER provided verbally by the EM provider, as wellas written in patients discharge education packet. ED Prescriptions Medication Sig Dispense Start Date End Date Auth. Provider lacosamide (Vimpat) 200 mg tablet tablet (Status: Discontinued) Take 0.5 tablets by mouth 2 times aday. 30 tablet 04/11/2025 04/11/2025 Vitaly Oviedo MD lacosamide (Vimpat) 200 mg tablet tablet Take 0.5 tablets by mouth 2 times a day. 30 tablet 04/11/2025 05/11/2025 Saravanan Isidro MD Discharge Instructions You were seen and evaluated in the Emergency Department. Please return to ED if your symptoms worsen, change in location, change in severity, new symptoms develop or if you become concerned for your health. Please follow-up with your PCP within 2 days for your symptoms.Continue taking keppra [id number] daily. Begin taking lacosamide 100mg twice daily. Please follow up outpatient with Neurologyin clinic. Disposition Discharge AVS (Australian Snapshot) - Printed 04/11/2025 - [1] Past Medical History: Diagnosis Date Diabetes mellitus ([facility]) Pneumonia, unspecified organism 07/06/2024 Seizures ([facility]) Type 1 diabetes mellitus with ketoacidosis without coma ([facility]) 07/06/2024 [2] Past Surgical History: Procedure Laterality Date BELOW KNEE AMPUTATION Left 06/16/2024 [3] Family History Problem Relation Name Age of Onset Diabetes Mother No Known Problems Father No Known Problems Sister No Known Problems Brother No Known Problems Maternal Grandmother Diabetes Maternal Grandfather Diabetes Paternal Grandmother No Known Problems Paternal Grandfather No Known Problems Daughter No Known Problems Son [4] Tobacco Use Smoking status: Former Current packs/day: 0.00 Types: Cigarettes Quit date: 06/28/2023 Years since quittin.7 Passive exposure: Past Smokeless tobacco: Never Tobacco comments: N/a Vaping Use Vaping status: Never Used Substance Use Topics Alcohol use: Not Currently Drug use: Never [5] Allergies Allergen Reactions Milk (Cow) Diarrhea Vitaly Oviedo MD Resident 04/13/25 9570 Cosigned by Saravanan Isidro MD at 04/17/2025 4:29 AM EDT Associated attestation - Saravanan Isidro MD - 04/17/2025 4:29 AM EDT I saw and evaluated the patient with the resident/fellow. I discussed the case with the resident/fellow and agree with the findings and plan as documented. * ED Triage Notes - Rajan Thompson RN - 04/11/2025 3:09 AM EDT Patient arrived via EMS from [facility]. Reported to have been found down and unresponsive, BG 40 on initial EMS arrival, received amp D50, started having seizure like activity, received Versed 5mg...seizure activity stopped, received another Amp D50 on scene. Was placed on D5 gtt by OSH, received Keppra at OSH, transported to ED. Patient Aox4, VSS, BG 179 on arrival here. Patient with history of DM and seizures, reports being compliant with insulin and keppra. documented in this encounter Plan of Treatment Upcoming Encounters Date Type Department Care Team (Late st Contact Info) Description 05/25/2025 8:00 AM EDT Office Visit [facility] [address] [place] [address] Jarred Harmon MD [address] [facility] [address] [place] [address] 07/02/2025 4:00 PM EST Office Visit [facility] [address] [place] [address] Reagan Mcmahon MD [address] [place] [address] documented as of this encounter Procedures Procedure Name Priority Date/Time Associated Diagnosis Comments BETA HYDROXYBUTYRIC ACID STAT 04/11/2025 4:19 AM EDT BLOOD CULTURE (AEROBIC/ANAEROBIC SET) STAT 04/11/2025 4:19 AM EDT CBC WITH AUTO DIFFERENTIAL STAT 04/11/2025 4:19 AM EDT C-REACTIVE PROTEIN, PLASMA STAT 04/11/2025 4:19 AM EDT TSH STAT 04/11/2025 4:19 AM EDT FREE T4, PLASMA STAT 04/11/2025 4:19 AM EDT HEMOGLOBIN A1C STAT 04/11/2025 4:19 AM EDT BLOOD GAS PANEL, VENOUS STAT 04/11/20 4:19 AM EDT COMPREHENSIVE METABOLIC PANEL, PLASMA STAT 04/11/2025 4:19 AM EDT XR CHEST 2 VIEWS STAT 04/11/2025 3:54 AM EDT ECG ADULT STAT 04/11/2025 3:22 AM EDT POCT GLUCOSE METER UNSOLICITED RESULTS Routine 04/11/2025 3:17 AM EDT documented in this encounter Results * Free T4, Plasma (04/11/2025 4:19 AM EDT) Free T4, Plasma 1.0 0.8 - 1.7 ng/dL 04/11/2025 5:11 AM EDT [facility] Blood Venous blood specimen / Unknown Venipuncture / Unknown 04/11/2025 4:19 AM EDT 04/11/2025 4:36 AM EDT Saravanan Isidro MD LAB BLOOD ORDERABLES Final Resu lt Performing Organization Address [facility]/ZIP Co de Phone Number [facility] [address] [place] [address] * Thyroid Stimulating Hormone, Plasma (04/11/2025 4:19 AM EDT) Thyroid Stimulating Hormone, Plasma 0.86 0.40 - 4.20 uIU/mL 04/11/2025 5:11 AM EDT [facility] Blood Venous blood specimen / Unknown Venipuncture / Unknown 04/11/2025 4:19 AM EDT 04/11/2025 4:36 AM EDT us Saravanan Isidro MD LAB BLOOD ORDERABLES Final Resu lt Performing Organization Address City/[facility]/ZIP Co de Phone Number [facility] [address] [place] [address] * (ABNORMAL) Beta-Hydroxybutyric Acid (04/11/2025 4:19 AM EDT) Beta-Hydroxybu tyric Acid, Plasma 0.36(H) <=0.27 mmol/L 04/11/2025 5:11 AM EDT [facility] Blood Venous blood specimen / Unknown Venipuncture / Unknown 04/11/2025 4:19 AM EDT 04/11/2025 4:36 AM EDT us Saravanan Isidro MD LAB BLOOD ORDERABLES Final Resu lt Performing Organization Address [facility] Co de Phone Number [facility] [address] [place] [address] * (ABNORMAL) Hemoglobin A1c (04/11/2025 4:19 AM EDT) Hemoglobin A1c 9.2(H) <5.7 % 04/11/2025 11:30 AM EDT [facility] Blood Venous blood specimen / Unknown Venipuncture / Unknown 04/11/2025 4:19 AM EDT 04/11/2025 4:45 AM EDT Narrative [facility] - 04/11/2025 11:30 AM EDT HA1C Interpretive Data: Diagnosis of Diabetes: Diabetic > or = 6.5% Pre-diabetic 5.7 to 6.4% Non-diabetic < or = 5.6% Glycemic Targets for Type I and Type II Diabetics: Non- Adults <7.0% Adults <6.0% Children and Adolescents <7.5% Source: [place] [employer]. Standards of medical care in diabetes,2017. Diabetes Care.2017:40 (suppl 1):S1-S135. us Saravanan Isidro MD LAB BLOOD ORDERABLES Final Resu lt Performing Organization Address City/[facility]/ZIP Co de Phone Number [facility] [address] [place] [address] * Blood Culture (Aerobic/Anaerobet Set) (04/11/2025 4:19 AM EDT) Culture No growth at day 5 04/16/2025 8:02 AM EDT [facility] Blood Structure of left forearm / Unknown Venipuncture / Unknown 04/11/2025 4:19 AM EDT 04/11/2025 7:28 AM EDT Narrative [facility] - 04/16/2025 8:02 AM EDT Low blood volume submitted, results may be compromised Saravanan Isidro MD LAB MICROBIOLOGY - GENERAL ORDE RABLES Final Result Performing Organization Address [facility] Co de Phone Number [facility] [address] [place] [address] * C-Reactive protein (04/11/2025 4:19 AM EDT) CRP, Plasma <3.0 <=8.0 mg/L 04/11/2025 5:11 AM EDT [facility] Blood Venous blood specimen / Unknown Venipuncture / Unknown 04/11/2025 4:19 AM EDT 04/11/2025 4:36 AM EDT Narrative [facility] - 04/11/2025 5:11 AM EDT This CRP test is appropriate for assessment of infection, systemic inflammation and/or tissue injury. To assess cardiovascular disease risk order high sensitivity CRP (CRPH). us Saravanan Isidro MD LAB BLOOD ORDERABLES Final Resu lt Performing Organization Address [facility] Co de Phone Number [facility] [address] [place] [address] * (ABNORMAL) Blood gas panel, venous (04/11/2025 4:19 AM EDT) pH, Venous 7.46(H) 7.32 - 7.43 LAB HEMATOLOGY METHOD 04/11/2025 4:25 AM EDT [facility] pCO2, Venous 37(L) 40 - 55 mmHg LAB HEMATOLOGY METHOD 04/11/2025 4:25 AM EDT [facility] pO2, Venous 56(H) 25 - 40 mmHg LAB HEMATOLOGY METHOD 04/11/2025 4:25 AM EDT [facility] SO2, Measured, Venous 91(H) 65 - 80 % LAB HEMATOLOGY METHOD 04/11/2025 4:25 AM EDT [facility] Base Excess, Venous 2.0 -2.0 - 3.0 mmol/L LAB HEMATOLOGY METHOD 04/11/2025 4:25 AM EDT [facility] Bicarbonate, Calculated, Venous 26 22 - 26 mmol/L LAB HEMATOLOGY METHOD 04/11/2025 4:25 AM EDT [facility] Hematocrit, Whole Blood 38.5(L) 40.0 - 51.0 % LAB HEMATOLOGY METHOD 04/11/2025 4:25 AM EDT [facility] Sodium, Whole Blood 136 136 - 145 mmol/L LAB HEMATOLOGY METHOD 04/11/2025 4:25 AM EDT [facility] Potassium, Whole Blood 3.7 3.6 - 4.9 mmol/L LAB HEMATOLOGY METHOD 04/11/2025 4:25 AM EDT [facility] Chloride, Whole Blood 98 97 - 107 mmol/L LAB HEMATOLOGY METHOD 04/11/2025 4:25 AM EDT [facility] Glucose, Whole Blood 142(H) 74 - 99 mg/dL LAB HEMATOLOGY METHOD 04/11/2025 4:25 AM EDT [facility] Lactate, Venous, Whole Blood 1.3 0.5 - 2.2 mmol/L LAB HEMATOLOGY METHOD 04/11/2025 4:25 AM EDT [facility] Ionized Calcium, Whole Blood 3.9(L) 4.6 - 5.1 mg/dL LAB HEMATOLOGY METHOD 04/11/2025 4:25 AM EDT [facility] Blood Venous blood specimen / Unknown Venipuncture / Unknown 04/11/2025 4:19 AM EDT 04/11/2025 4:23 AM EDT us Saravanan Isidro MD LAB BLOOD ORDERABLES Final Resu lt [facility] [address] [place] [address] * (ABNORMAL) CMP (04/11/2025 4:19 AM EDT) Glucose, Plasma 143(H) 74 - 99 mg/dL 04/11/2025 5:11 AM EDT [facility] BUN, Plasma 5(L) 7 - 21 mg/dL 04/11/2025 5:11 AM EDT [facility] Creatinine, Plasma 0.29(L) 0.70 - 1.20 mg/dL 04/11/2025 5:11 AM EDT [facility] BUN/Creatinine Ratio 17 04/11/2025 5:11 AM EDT [facility] Sodium, Plasma 132(L) 136 - 145 mmol/L 04/11/2025 5:11 AM EDT [facility] Potassium, Plasma 4.0 3.6 - 4.9 mmol/L 04/11/2025 5:11 AM EDT [facility] Chloride, Plasma 97 97 - 107 mmol/L 04/11/2025 5:11 AM EDT [facility] CO2, Plasma 21(L) 22 - 29 mmol/L 04/11/2025 5:11 AM EDT [facility] Anion Gap 14 6 - 16 mmol/L 04/11/2025 5:11 AM EDT [facility] Total Calcium, Plasma 7.7(L) 8.9 - 10.2 mg/dL 04/11/2025 5:11 AM EDT [facility] Total Protein 7.4 6.3 - 7.9 g/dL 04/11/2025 5:11 AM EDT [facility] Albumin, Plasma 3.6 3.5 - 5.2 g/dL 04/11/2025 5:11 AM EDT [facility] AST, Plasma 101(H) 10 - 50 U/L 04/11/2025 5:11 AM EDT [facility] Comment:Hemolyzed, result ma y be falsely increased. ALT, Plasma 72(H) 10 - 50 U/L 04/11/2025 5:11 AM EDT [facility] Alkaline Phosphatase, Plasma 198(H) 40 - 115 U/L 04/11/2025 5:11 AM EDT [facility] Total Bilirubin, Plasma 0.4 0.2 - 1.1 mg/dL 04/11/2025 5:11 AM EDT [facility] eGFRcr 162.8 mL/min/1.7 3m*2 04/11/2025 5:11 AM EDT [facility] Comment:Reported eGFRcr in m L/min/1.73m2 is based the CKD-EPI 2020 equation that does not use a race coefficient. Blood Venous blood specimen / Unknown Venipuncture / Unknown 04/11/2025 4:19 AM EDT 04/11/2025 4:36 AM EDT us Saravanan Isidro MD LAB BLOOD ORDERABLES Final Resu lt [facility] [address] [place] [address] * (ABNORMAL) CBC w/diff (04/11/2025 4:19 AM EDT) WBC Count 7.20 3.70 - 10.30 10*3/uL LAB HEMATOLOGY METHOD 04/11/2025 4:30 AM EDT [facility] RBC Count 4.35(L) 4.60 - 6.10 10*6/uL LAB HEMATOLOGY METHOD 04/11/2025 4:30 AM EDT [facility] HGB 12.6(L) 13.7 - 17.5 g/dL LAB HEMATOLOGY METHOD 04/11/2025 4:30 AM EDT [facility] HCT 36.3(L) 40.0 - 51.0 % LAB HEMATOLOGY METHOD 04/11/2025 4:30 AM EDT [facility] Platelet Count 137(L) 155 - 369 10*3/uL LAB HEMATOLOGY METHOD 04/11/2025 4:30 AM EDT [facility] MCV 83 79 - 98 fL LAB HEMATOLOGY METHOD 04/11/2025 4:30 AM EDT [facility] MCH 29.0 26.0 - 32.0 pg LAB HEMATOLOGY METHOD 04/11/2025 4:30 AM EDT [facility] MCHC 34.7 30.7 - 35.5 g/dL LAB HEMATOLOGY METHOD 04/11/2025 4:30 AM EDT [facility] RDW 12.1 11.5 - 14.5 % LAB HEMATOLOGY METHOD 04/11/2025 4:30 AM EDT [facility] MPV 9.1 8.8 - 12.5 fL LAB HEMATOLOGY METHOD 04/11/2025 4:30 AM EDT [facility] nRBC 0.0 <=0.0 per 100 WBCs LAB HEMATOLOGY METHOD 04/11/2025 4:30 AM EDT [facility] Differential Type Automated LAB HEMATOLOGY METHOD 04/11/2025 4:30 AM EDT [facility] Neutrophils % 86 % LAB HEMATOLOGY METHOD 04/11/2025 4:30 AM EDT [facility] Lymphocytes % 10 % LAB HEMATOLOGY METHOD 04/11/2025 4:30 AM EDT [facility] Monocytes % 4 % LAB HEMATOLOGY METHOD 04/11/2025 4:30 AM EDT [facility] Eosinophils % 0 % LAB HEMATOLOGY METHOD 04/11/2025 4:30 AM EDT [facility] Basophils % 0 % LAB HEMATOLOGY METHOD 04/11/2025 4:30 AM EDT [facility] Immature Granulocytes % 0 % LAB HEMATOLOGY METHOD 04/11/2025 4:30 AM EDT [facility] Neutrophils Absolute 6.17(H) 1.60 - 6.10 10*3/uL LAB HEMATOLOGY METHOD 04/11/2025 4:30 AM EDT [facility] Lymphocytes Absolute 0.73(L) 1.20 - 3.90 10*3/uL LAB HEMATOLOGY METHOD 04/11/2025 4:30 AM EDT [facility] Monocytes Absolute 0.28(L) 0.30 - 0.90 10*3/uL LAB HEMATOLOGY METHOD 04/11/2025 4:30 AM EDT [facility] Eosinophils Absolute 0.00 0.00 - 0.50 10*3/uL LAB HEMATOLOGY METHOD 04/11/2025 4:30 AM EDT [facility] Basophils Absolute 0.01 0.00 - 0.10 10*3/uL LAB HEMATOLOGY METHOD 04/11/2025 4:30 AM EDT [facility] Immature Granulocytes Absolute 0.01 0.00 - 0.06 10*3/uL LAB HEMATOLOGY METHOD 04/11/2025 4:30 AM EDT [facility] Blood Venous blood specimen / Unknown Venipuncture / Unknown 04/11/2025 4:19 AM EDT 04/11/2025 4:25 AM EDT [facility] - 04/11/2025 4:30 AM EDT Therapeutic decision making should be based on absolute values, rather than percentages. us Saravanan Isidro MD LAB BLOOD ORDERABLES Final Resu lt [facility] [address] [place] [address] * XR Chest 2 Views (04/11/2025 3:54 AM EDT) Anatomical Region Laterality Modality Chest Computed Radiogr aphy Impressions 04/11/2025 4:31 AM EDT No acute finding. CRITICAL RESULT: No. COMMUNICATION: Per this written report. Preliminary report signed by Hira Colvin MD on 04/11/2025 4:04 AM By electronically signing this report, I, the attending physician, attest that I have personally reviewed the images/data for the above examination(s) and agree with the final edited report. Drafted by Hira Colvin MD on 04/11/2025 3:59 AM Final report signed by Matty Harrison MD on 04/11/2025 4:31 AM Narrative 04/11/2025 4:31 AM EDT CLINICAL INDICATION: Sepsis, aspiration, aspiration, pneumonia TECHNIQUE: XR CHEST 2 VIEWS COMPARISON: CXR, 06/14/2024 FINDINGS: Cardiac silhouette and mediastinal contours within normal limits. No pleural effusion or pneumothorax. Low lung volumes. Bibasilar atelectasis. No acute osseous abnormality. Procedure Note Matty Harrison MD - 04/11/2025 CLINICAL INDICATION: Sepsis, aspiration, aspiration, pneumonia TECHNIQUE: XR CHEST 2 VIEWS COMPARISON: CXR, 06/14/2024 FINDINGS: Cardiac silhouette and mediastinal contours within normal limits. Nopleural effusion or pneumothorax. Low lung volumes. Bibasilar atelectasis.No acute osseous abnormality. IMPRESSION: No acute finding. CRITICAL RESULT: No. COMMUNICATION: Per this written report. Preliminary report signed by Hira Colvin MD on 04/11/2025 4:04 AM By electronically signing this report, I, the attending physician, attestthat I have personally reviewed the images/data for the aboveexamination(s) and agree with the final edited report. Drafted by Hira Colvin MD on 04/11/2025 3:59 AM Final report signed by Matty Harrison MD on 04/11/2025 4:31 AM us Saravanan Isidro MD IMG XR PROCEDURES Final Result * EKG now - STAT (adult) (04/11/2025 3:22 AM EDT) EKG DIAGNOSIS CLASS Normal MUSE ECG Ventricular Rate 96 BPM MUSE ECG Atrial Rate 96 BPM MUSE ECG RI Interval 130 ms MUSE ECG QRSD Interval 80 ms MUSE ECG QT Interval 344 ms MUSE ECG QTC Interval 434 ms MUSE ECG P Reading 31 degrees MUSE ECG R Reading 81 degrees MUSE ECG T Wave Reading 24 degrees MUSE ECG Diagnosis Normal sinus rhythm MUSE ECG Diagnosis Normal ECG MUSE ECG Diagnosis MUSE ECG Diagnosis Confirmed by Justin Estrada ([id number]) on 04/11/2025 11:28:29 AM MUSE ECG 04/11/2025 3:22 AM EDT 04/11/2025 11:28 AM EDT us Saravanan Isidro MD ECG ORDERABLES Final Result MUSE ECG * (ABNORMAL) POCT glucose meter (04/11/2025 3:17 AM EDT) POCT Glucose 179(H) 74 - 99 mg/dL 04/11/2025 3:18 AM EDT [facility] Comment:Accuracy of a glucos e result obtained from a capillary whole blood specimen relies upon adequate, non-compromised capillary blood flow. If the capillary glucose result is not consistent with the patient's clinical signs and symptoms, glucose testing should be repeated with either an arterial or venous sample on the glucometer or sent to the main labortory for testing. Comment 04/11/2025 3:18 AM EDT [facility] Particleboard Factory Worker ID Jaime Vasquezra 04/11/2025 3:18 AM EDT [facility] Device ID [id number] 04/11/2025 3:18 AM EDT [facility] Specimen Type POC Capillary 04/11/2025 3:18 AM EDT [facility] Blood Capillary blood specimen / Unknown 04/11/2025 3:17 AM EDT 04/11/2025 3:18 AM EDT us Generic Provider Poct LAB POINT OF CARE TEST DOCKED DEVICE UNSOLICITED RESULTS Final Result [facility] [address] [place] [address] documented in this encounter Visit Diagnoses Diagnosis Seizure (CMS/HCC)- Primary Other convulsions Hypoglycemia Hypoglycemia, unspecified documented in this encounter Additional Health Concerns Assessment Noted Time PHQ-9 Depression Total Score: 3 08/10/20 24 9:42 AM EST A fall risk assessment has been complete d for the patient 08/31/2024 1:33 PM EST A Body Mass Index follow-up plan has been documented for the patient 08/31/2024 3:05 PM EST documented as of this encounter Care Teams Non Destructive Evaluation Manager Relationship Specialty Start Date End Date Pcp, Loraine [address] [place] [address] PCP - General Family Medicine 04/11/25 documented as of this encounter
[2025-05-21] VITALS (8 sets, daily range): BP systolic 132–175; BP diastolic 80–104; PULSE 79–88; RESP 12–20; TEMP 36.4–36.8; O2SAT 97–100; BMI 24.7
--- OUTSIDE RECORDS SUMMARY | 2025-05-21 06:55 | XMS_ITS | Encounter Summary ---
Author Organization Healthcare Address [address] [place] [address] Care Team Providers Care Grain Mill Worker Name Role Phone Pcp, No Primary Care Provider Unavailabl e Encounter Details Date Type Department Care Team (Latest Contact Info) Description 04/11/2025 Travel Social History Tobacco Use Types Packs/Day Years [...] week 06/12/2024 [facility]? Patient unable to answer 06/12/2024 Do you belong to any clubs o r organizations such as denominational groups, unions, fraternal or athletic groups, or [...] Recorded Patient Health Questionnaire-2 Score 0 08/10/2024 [facility] - Occupational Stress Questionnaire Answer Date Recorded [...] place to sleep or slept in a custodial (including now)? 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 Wish to be (Past 1 Month) No 025 3:42 AM EDT Zena Avendano RN 2. Non-Specific Active Suici karena Thoughts (Past 1 Month) No 04/11/2025 3:42 AM EDT Lily Avendano, RN 6. Suicidal Behavior (Lifetime) No 3:42 AM EDT Zena Avendano RN documented as of this encounter Plan of Treatment Upcoming Encounters Date Type Department Care Team (Late st Contact Info) Description 05/25/2025 8:00 AM EDT Office Visit [facility] [address] [place] [address] Jarred Harmon MD [address] [place] [address] 07/02/2025 4:00 PM EST Office Visit [facility] [address] [place] [address] Reagan Mcmahon MD [address] [place], [place] [id number] documented as of this encounter Visit Diagnoses Not on filedocumented in this encounter Additional Health Concerns Assessment Noted Time PHQ-9 Depression Total Score: 3 08/10/20 24 9:42 AM EST A fall risk assessment has been complete d for the patient 08/31/2024 1:33 PM EST A Body Mass Index follow-up plan has been documented for the patient 08/31/2024 3:05 PM EST documented as of this encounter Care Teams Grain Mill Worker Relationship Specialty Start Date End Date Pcp, No [address] [place] [address] PCP - General Family Medicine 04/11/25 documented as of this encounter
--- OUTSIDE RECORDS SUMMARY | 2025-05-21 06:55 | XMS_ITS | Clinical Summary ---
Author Organization [facility] Address [address] [place] [address] Care Team Providers Care Rope Silica Machine Operator Name Role Phone Pcp, No Primary Care Provider Unavailabl e Allergies Active Allergy Reactions Criticality Noted Date [...] on 09/26/2024 ergocalciferol (Vitamin D-2) 1.25 MG (67558 UT) capsule Take 1 capsule (50,000 Units) [...] not taking.Reported on 09/26/2024 Sodium Hypochlorite (Dakins, 08/26 strength,) 0.125 % solutionIndicati ons:Diabetic wet gangrene of the foot Apply dakins [...] 9 each 1 5 Active Continuous Glucose Detasseler (Dexcom G7 Detasseler) device 1 each 1 (one) time each day. 1 each 5 Active acetone, urine, test strip 1 strip if needed for high blood sugar. 25 each 5 Active senna-docusate (Stool Softener Plus Laxative) 8.6-50 MG tablet 4 Active polyethylene glycol (Miralax) 17 GM/SCOOP powder 4 Active neomycin-polymyx in-hydrocortison e (Cortisporin) 3.5-78763-2 otic suspension Administer 4 drops into affected ear(s) twice a day. 5 Active insulin glargine (Lantus SoloStar, Basaglar) 100 UNIT/ML injection pen Inject 30 Units under the skin nightly. 15 mL 1 5 12/16/19 26 Active Insulin Pen Needle (Pen [place]) 32G X 5 MM misc 1 each 5 times a day. 150 each 2 5 Active insulin lispro (Admelog, HumaLOG) 100 UNIT/ML injection pen Use 15-20 units before meals three times daily, max daily dose of 75 units 30 mL 1 5 Active lacosamide (Vimpat) 200 mg tablet tablet Take 0.5 tablets by mouth 2 times a day. 30 tablet 5 Active Active Problems Problem Noted Date [...] diabetes mellitus with diabetic polyneuro maikel 06/28/2024 Diabetic wet gangrene of the foot 06/09/2024 [...] wit h ketoacidosis without coma 07/06/2024 08/10/2024 Pneumonia of right upper lob e due to infectious organism 06/18/2024 05/13/2025 Hyperglycemia 01/26/2023 01/26/2023 Overview (01/26/2023): - Attributed [...] Encounters Date Type Department Care Team Description 04/11/2025 3:09 AM EDT - 04/11/2025 7:53 AM EDT Emergency [facility] Emergency Department [address] [place] [address] Saravanan Isidro MD Seizure ([facility]) (Primary Dx); Hypoglycemia Discharge Disposition: Home or Self Care 04/11/2025 Travel 04/10/2025 Orders Only External Location [address] [place] [address] Provider, External 04/10/2025 Orders Only External Location [address] [place] [address] Provider, External 04/10/2025 Orders Only External Location [address] [place] [address] Provider, External from Last 3 Months Immunizations Immunization Administration [...] week 06/12/2024 How often do you attend [facility] or roman catholic services? Patient unable to answer 06/12/2024 Do you belong to any clubs o r organizations such as advent groups, unions, fraternal or athletic groups, or [...] Recorded Patient Health Questionnaire-2 Score 0 08/10/2024 [facility] - Occupational Stress [...] place to sleep or slept in a group home (including now)? No 06/12/2024 PHQ-9 Answer Date [...] drink first t rebekah in the morning (EYE-EMBEDDED LINUX DEVELOPER) to steady your nerves or to get [...] 3 oz) 04/11/2025 3:27 AM EDT Height 154.9 cm (5' 1 ) 08/29/2024 1:01 PM EST Body Mass Index 24.41 08/29/2024 1:01 PM EST Plan of Treatment Upcoming Encounters Date Type Department Care Team (Late st Contact Info) Description 05/25/2025 8:00 AM EDT Office Visit [facility] [address] [place] [address] Jarred Harmon MD [address] [place] [address] 07/02/2025 4:00 PM EST [facility] [address] [place] [address] Reagan Mcmahon MD [address] [place] [address] Health Maintenance Due Date Last Done Comments [facility]-Infant/Child/Adol SDOH Screenings 1991 Diabetes: Dental Exam 2001 [...] (2 - Td or Tdap) 08/23/2021 08/23/2011 [facility]- SDOH Screenings 12/11/2024 [facility]-Adult SDOH Screenings 12/11/2024 06/12/2024 [id number]-17 Vaccine ( - season) 2025 [facility]-Influenza Vaccine (#1) 2025 08/21/2015 [facility]-Diabetes: Hemoglobin A1C 07/11/2025 04/11/2025, 09/26/2024, 06/09/2024, Additional history exists [facility]-Depression Screening 08/10/2025 08/10/2024, 07/23 [facility]-Zoster Vaccines (1 of 2) 2041 [facility]-HIV Screening Completed 06/09/2024 [facility]-Hepatitis C Screening Completed 2024, 06/09/2024, 06/09/2024 [facility]-HIB Vaccines Aged Out No longer e ligible based on patient's age to complete this topic [facility]-IPV Vaccines Aged Out No longer e ligible based on patient's age to complete this topic [facility]-Rotavirus Vaccines Aged Out No lo nger eligible based on patient's age to complete this topic Procedures Procedure Name Priority Date/Time Associated Diagnosis Comments FREE T4, PLASMA STAT 04/11/2025 4:19 AM EDT TSH STAT 04/11/2025 4:19 AM EDT BETA HYDROXYBUTYRIC ACID STAT 04/11/2025 4:19 AM EDT HEMOGLOBIN A1C STAT 04/11/2025 4:19 AM EDT C-REACTIVE PROTEIN, PLASMA STAT 04/11/2025 4:19 AM EDT BLOOD GAS PANEL, VENOUS STAT 04/11/20 4:19 AM EDT COMPREHENSIVE METABOLIC PANEL, PLASMA STAT 04/11/2025 4:19 AM EDT CBC WITH AUTO DIFFERENTIAL STAT 04/11/2025 4:19 AM EDT BLOOD CULTURE (AEROBIC/ANAEROBIC SET) STAT 04/11/2025 4:19 AM EDT XR CHEST 2 VIEWS STAT 04/11/2025 3:54 AM EDT ECG ADULT STAT 04/11/2025 3:22 AM EDT POCT GLUCOSE METER UNSOLICITED RESULTS Routine 04/11/2025 3:[address] OUTSIDE IMAGES 04/10/2025 9:[address] OUTSIDE IMAGES 04/10/2025 9:[address] OUTSIDE IMAGES 04/10/2025 9:2 1 PM EDT ACUTE HEPATITIS PANEL Routine 08/29/2024 1:41 PM EST Abdominal pain, unspecified abdominal location ED HIV 1/2 ANTIBODY/ANTIGEN SCREEN WITH REFLEX TO HIV I/II DIFFERENTIATION STAT 06/09/2024 5:27 PM EDT from Last 3 Months or Most Recently Relevant to Health Maintenance Results * (ABNORMAL) Beta-Hydroxybutyric Acid (04/11/2025 4:19 AM EDT) Beta-Hydroxybu tyric Acid, Plasma 0.36(H) <=0.27 mmol/L 04/11/2025 5:11 AM EDT [facility] Blood Venous blood specimen / Unknown Venipuncture / Unknown 04/11/2025 4:19 AM EDT 04/11/2025 4:36 AM EDT us Saravanan Isidro MD LAB BLOOD ORDERABLES Final Resu lt Performing Organization Address City/[facility]/ZIP Co de Phone Number [facility] [address] [place] [address] * Blood Culture (Aerobic/Anaerobet Set) (04/11/2025 4:19 AM EDT) Culture No growth at day 5 04/16/2025 8:02 AM EDT [facility] Blood Structure of left forearm / Unknown Venipuncture / Unknown 04/11/2025 4:19 AM EDT 04/11/2025 7:28 AM EDT Narrative [facility] - 04/16/2025 8:02 AM EDT Low blood volume submitted, results may be compromised us Saravanan Isidro MD LAB MICROBIOLOGY - GENERAL ORDE RABLES Final Result Performing Organization Address [facility]/ZIP Co de Phone Number [facility] [address] [place] [address] * (ABNORMAL) CBC w/diff (04/11/2025 4:19 AM EDT) WBC Count 7.20 3.70 - 10.30 10*3/uL LAB HEMATOLOGY METHOD 04/11/2025 4:30 AM EDT [facility] RBC Count 4.35(L) 4.60 - 6.10 10*6/uL LAB HEMATOLOGY METHOD 04/11/2025 4:30 AM EDT [facility] HGB 12.6(L) 13.7 - 17.5 g/dL LAB HEMATOLOGY METHOD 04/11/2025 4:30 AM EDT [facility] HCT 36.3(L) 40.0 - 51.0 % LAB HEMATOLOGY METHOD 04/11/2025 4:30 AM EDT [facility] Platelet Count 137(L) 155 - 369 10*3/uL LAB HEMATOLOGY METHOD 04/11/2025 4:30 AM EDT [facility] MCV 83 79 - 98 fL LAB HEMATOLOGY METHOD 04/11/2025 4:30 AM EDT [facility] MCH 29.0 26.0 - 32.0 pg LAB HEMATOLOGY METHOD 04/11/2025 4:30 AM EDT [facility] MCHC 34.7 30.7 - 35.5 g/dL LAB HEMATOLOGY METHOD 04/11/2025 4:30 AM EDT [facility] RDW 12.1 11.5 - 14.5 % LAB HEMATOLOGY METHOD 04/11/2025 4:30 AM EDT [facility] MPV 9.1 8.8 - 12.5 fL LAB HEMATOLOGY METHOD 04/11/2025 4:30 AM EDT [facility] nRBC 0.0 <=0.0 per 100 WBCs LAB HEMATOLOGY METHOD 04/11/2025 4:30 AM EDT [facility] Differential Type Automated LAB HEMATOLOGY METHOD 04/11/2025 4:30 AM EDT [facility] Neutrophils % 86 % LAB HEMATOLOGY METHOD 04/11/2025 4:30 AM EDT [facility] Lymphocytes % 10 % LAB HEMATOLOGY METHOD 04/11/2025 4:30 AM EDT [facility] Monocytes % 4 % LAB HEMATOLOGY METHOD 04/11/2025 4:30 AM EDT [facility] Eosinophils % 0 % LAB HEMATOLOGY METHOD 04/11/2025 4:30 AM EDT [facility] Basophils % 0 % LAB HEMATOLOGY METHOD 04/11/2025 4:30 AM EDT [facility] Immature Granulocytes % 0 % LAB HEMATOLOGY METHOD 04/11/2025 4:30 AM EDT [facility] Neutrophils Absolute 6.17(H) 1.60 - 6.10 10*3/uL LAB HEMATOLOGY METHOD 04/11/2025 4:30 AM EDT [facility] Lymphocytes Absolute 0.73(L) 1.20 - 3.90 10*3/uL LAB HEMATOLOGY METHOD 04/11/2025 4:30 AM EDT [facility] Monocytes Absolute 0.28(L) 0.30 - 0.90 10*3/uL LAB HEMATOLOGY METHOD 04/11/2025 4:30 AM EDT [facility] Eosinophils Absolute 0.00 0.00 - 0.50 10*3/uL LAB HEMATOLOGY METHOD 04/11/2025 4:30 AM EDT [facility] Basophils Absolute 0.01 0.00 - 0.10 10*3/uL LAB HEMATOLOGY METHOD 04/11/2025 4:30 AM EDT [facility] Immature Granulocytes Absolute 0.01 0.00 - 0.06 10*3/uL LAB HEMATOLOGY METHOD 04/11/2025 4:30 AM EDT [facility] Blood Venous blood specimen / Unknown Venipuncture / Unknown 04/11/2025 4:19 AM EDT 04/11/2025 4:25 AM EDT Narrative [facility] - 04/11/2025 4:30 AM EDT Therapeutic decision making should be based on absolute values, rather than percentages. us Saravanan Isidro MD LAB BLOOD ORDERABLES Final Resu lt Performing Organization Address [facility] Co de Phone Number [facility] [address] [place] [address] * C-Reactive protein (04/11/2025 4:19 AM EDT) CRP, Plasma <3.0 <=8.0 mg/L 04/11/2025 5:11 AM EDT [facility] Blood Venous blood specimen / Unknown Venipuncture / Unknown 04/11/2025 4:19 AM EDT 04/11/2025 4:36 AM EDT [facility] - 04/11/2025 5:11 AM EDT This CRP test is appropriate for assessment of infection, systemic inflammation and/or tissue injury. To assess cardiovascular disease risk order high sensitivity CRP (CRPH). us Saravanan Isidro MD LAB BLOOD ORDERABLES Final Resu lt Performing Organization Address City/[facility]/ZIP Co de Phone Number [facility] [address] [place] [address] * Thyroid Stimulating Hormone, Plasma (04/11/2025 4:19 AM EDT) Thyroid Stimulating Hormone, Plasma 0.86 0.40 - 4.20 uIU/mL 04/11/2025 5:11 AM EDT [facility] Blood Venous blood specimen / Unknown Venipuncture / Unknown 04/11/2025 4:19 AM EDT 04/11/2025 4:36 AM EDT us Saravanan Isidro MD LAB BLOOD ORDERABLES Final Resu lt Performing Organization Address City/[facility] [place] [address] * Free T4, Plasma (04/11/2025 4:19 AM EDT) Free T4, Plasma 1.0 0.8 - 1.7 ng/dL 04/11/2025 5:11 AM EDT [facility] Blood Venous blood specimen / Unknown Venipuncture / Unknown 04/11/2025 4:19 AM EDT 04/11/2025 4:36 AM EDT us Saravanan Isidro MD LAB BLOOD ORDERABLES Final Resu lt Performing Organization Address [facility] [place] [address] * (ABNORMAL) Hemoglobin A1c (04/11/2025 4:19 AM EDT) Hemoglobin A1c 9.2(H) <5.7 % 04/11/2025 11:30 AM EDT [facility] Blood Venous blood specimen / Unknown Venipuncture / Unknown 04/11/2025 4:19 AM EDT 04/11/2025 4:45 AM EDT Narrative [facility] - 04/11/2025 11:30 AM EDT HA1C Interpretive Data: Diagnosis of Diabetes: Diabetic > or = 6.5% Pre-diabetic 5.7 to 6.4% Non-diabetic < or = 5.6% Glycemic Targets for Type I and Type II Diabetics: Non- Adults <7.0% Adults <6.0% Children and Adolescents <7.5% Source: [place] [employer]. Standards of medical care in diabetes,2017. Diabetes Care.2017:40 (suppl 1):S1-S135. us Saravanan Isidro MD LAB BLOOD ORDERABLES Final Resu lt [facility] [address] [place] [address] * (ABNORMAL) Blood gas panel, venous (04/11/2025 4:19 AM EDT) pH, Venous 7.46(H) 7.32 - 7.43 LAB HEMATOLOGY METHOD 04/11/2025 4:25 AM EDT [facility] pCO2, Venous 37(L) 40 - 55 mmHg LAB HEMATOLOGY METHOD 04/11/2025 4:25 AM EDT [facility] pO2, Venous 56(H) 25 - 40 mmHg LAB HEMATOLOGY METHOD 04/11/2025 4:25 AM EDT [facility] SO2, Measured, Venous 91(H) 65 - 80 % LAB HEMATOLOGY METHOD 04/11/2025 4:25 AM EDT [facility] Base Excess, Venous 2.0 -2.0 - 3.0 mmol/L LAB HEMATOLOGY METHOD 04/11/2025 4:25 AM EDT [facility] Bicarbonate, Calculated, Venous 26 22 - 26 mmol/L LAB HEMATOLOGY METHOD 04/11/2025 4:25 AM EDT [facility] Hematocrit, Whole Blood 38.5(L) 40.0 - 51.0 % LAB HEMATOLOGY METHOD 04/11/2025 4:25 AM EDT [facility] Sodium, Whole Blood 136 136 - 145 mmol/L LAB HEMATOLOGY METHOD 04/11/2025 4:25 AM EDT [facility] Potassium, Whole Blood 3.7 3.6 - 4.9 mmol/L LAB HEMATOLOGY METHOD 04/11/2025 4:25 AM EDT [facility] Chloride, Whole Blood 98 97 - 107 mmol/L LAB HEMATOLOGY METHOD 04/11/2025 4:25 AM EDT [facility] Glucose, Whole Blood 142(H) 74 - 99 mg/dL LAB HEMATOLOGY METHOD 04/11/2025 4:25 AM EDT [facility] Lactate, Venous, Whole Blood 1.3 0.5 - 2.2 mmol/L LAB HEMATOLOGY METHOD 04/11/2025 4:25 AM EDT [facility] Ionized Calcium, Whole Blood 3.9(L) 4.6 - 5.1 mg/dL LAB HEMATOLOGY METHOD 04/11/2025 4:25 AM EDT [facility] Blood Venous blood specimen / Unknown Venipuncture / Unknown 04/11/2025 4:19 AM EDT 04/11/2025 4:23 AM EDT us Saravanan Isidro MD LAB BLOOD ORDERABLES Final Resu lt [facility] [address] [place] [address] * (ABNORMAL) CMP (04/11/2025 4:19 AM EDT) Glucose, Plasma 143(H) 74 - 99 mg/dL 04/11/2025 5:11 AM EDT [facility] BUN, Plasma 5(L) 7 - 21 mg/dL 04/11/2025 5:11 AM EDT [facility] Creatinine, Plasma 0.29(L) 0.70 - 1.20 mg/dL 04/11/2025 5:11 AM EDT [facility] BUN/Creatinine Ratio 17 04/11/2025 5:11 AM EDT [facility] Sodium, Plasma 132(L) 136 - 145 mmol/L 04/11/2025 5:11 AM EDT [facility] Potassium, Plasma 4.0 3.6 - 4.9 mmol/L 04/11/2025 5:11 AM EDT [facility] Chloride, Plasma 97 97 - 107 mmol/L 04/11/2025 5:11 AM EDT [facility] CO2, Plasma 21(L) 22 - 29 mmol/L 04/11/2025 5:11 AM EDT [facility] Anion Gap 14 6 - 16 mmol/L 04/11/2025 5:11 AM EDT [facility] Total Calcium, Plasma 7.7(L) 8.9 - 10.2 mg/dL 04/11/2025 5:11 AM EDT [facility] Total Protein 7.4 6.3 - 7.9 g/dL 04/11/2025 5:11 AM EDT [facility] Albumin, Plasma 3.6 3.5 - 5.2 g/dL 04/11/2025 5:11 AM EDT [facility] AST, Plasma 101(H) 10 - 50 U/L 04/11/2025 5:11 AM EDT [facility] Comment:Hemolyzed, result ma y be falsely increased. ALT, Plasma 72(H) 10 - 50 U/L 04/11/2025 5:11 AM EDT [facility] Alkaline Phosphatase, Plasma 198(H) 40 - 115 U/L 04/11/2025 5:11 AM EDT [facility] Total Bilirubin, Plasma 0.4 0.2 - 1.1 mg/dL 04/11/2025 5:11 AM EDT [facility] eGFRcr 162.8 mL/min/1.7 3m*2 04/11/2025 5:11 AM EDT [facility] Comment:Reported eGFRcr in m L/min/1.73m2 is based the CKD-EPI 2020 equation that does not use a race coefficient. Blood Venous blood specimen / Unknown Venipuncture / Unknown 04/11/2025 4:19 AM EDT 04/11/2025 4:36 AM EDT us Saravanan Isidro MD LAB BLOOD ORDERABLES Final Resu lt [facility] [address] [place] [address] * XR Chest 2 Views (04/11/2025 3:54 [...] ECG Atrial Rate 96 BPM MUSE ECG CA Interval 130 ms MUSE ECG QRSD Interval 80 ms MUSE ECG QT Interval 344 ms MUSE ECG QTC Interval 434 ms MUSE ECG P [place] 31 degrees MUSE ECG R [place] 81 degrees MUSE ECG T Wave [place] 24 degrees MUSE ECG Diagnosis Normal sinus rhythm MUSE ECG Diagnosis Normal ECG MUSE ECG Diagnosis MUSE ECG Diagnosis Confirmed by Justin Estrada ([id number]) on 04/11/2025 11:28:29 AM MUSE ECG 04/11/2025 3:22 AM EDT 04/11/2025 11:28 AM EDT us Saravanan Isidro MD ECG ORDERABLES Final Result MUSE ECG * (ABNORMAL) POCT glucose meter (04/11/2025 3:17 AM EDT) [facility] POCT Glucose 179(H) 74 - 99 mg/dL [...] for testing. Comment 04/11/2025 3:18 AM EDT [facility] Radial Drill Press Operator For Plastic ID Lay Vasquez 04/11/2025 3:18 AM EDT [facility]ALTH[facility] LAB Device ID [id number] 04/11/2025 3:18 AM EDT [facility] Specimen Type POC Capillary 04/11/2025 3:18 AM EDT [facility] Blood Capillary blood specimen / Unknown 04/11/2025 3:17 AM EDT 04/11/2025 3:18 AM EDT us Generic Provider Poct LAB POINT OF CARE TEST DOCKED DEVICE UNSOLICITED RESULTS Final Result Performing Organization Address City/[facility] Co de Phone Number [facility] [address] [place] [address] * CT OUTSIDE IMAGES (04/10/2025 9:23 PM EDT) Only the most recent of3 resultswithin the time period is included. Anatomical Region Laterality Modality Computed Tomogra phy 04/10/2025 9:23 PM EDT us External Provider IMG CT PROCEDURES Final Result * Acute Hepatitis Panel (08/29/2024 1:41 PM EST) [facility] Hepatitis B Surf Antigen Negative Negative 08/29/2024 5:37 PM EST [facility] Hepatitis C Antibody Negative Negative 08/29/2024 5:37 PM EST [facility] Hepatitis A Antibody IgM Negative Negative 08/29/2024 5:37 PM EST [facility] Hepatitis B Core Antibody IgM Negative Negative 08/29/2024 5:37 PM EST [facility] Blood Venous blood specimen / Unknown Venipuncture / Unknown 08/29/2024 1:41 PM EST 08/29/2024 1:41 PM EST us Lianna RENNER LAB BLOOD ORDERABLES Final Res ult Performing Organization Address City/[facility]/ZIP Co de Phone Number [facility] [address] [place] [address] * ED HIV 1/2 Antibody/Antigen Screen w/Reflex to HIV 1/2 Differentiation (06/09/2024 5:27 PM EDT) HIV 1 & 2 Antibody/Antigen Screen Non Reactive Non Reactive 06/09/2024 7:19 PM EDT [facility] Comment:Screening for HIV 1 & 2 antibodies, and P24 antigen is NONREACTIVE. No confirmatory testing is required. Blood Venous blood specimen / Unknown Venipuncture / Unknown 06/09/2024 5:27 PM EDT 06/09/2024 6:36 PM EDT Clay Silva MD LAB BLOOD ORDERABLES Final Resul t Performing Organization Address [facility] Co de Phone Number [facility] [address] [place] [address] from Last 3 Months or Most Recently Relevant to Health Maintenance [place] [address] [place] [address] [facility] MEDICAID Advance Directives * Full Code (Latest Code Status on File) Date Activated Date Inactivated Comments 01/26/2023 4:58 AM 01/27/2023 7:12 PM Question Answer Comments Patient has decision-making capacity? Yes Care Teams Rope Silica Machine Operator Relationship Specialty Start Date End Date Pcp, No [address] [place] [address] PCP - General Family Medicine 04/11/25
--- OUTSIDE RECORDS SUMMARY | 2025-05-21 06:56 | XMS_ITS | Encounter Summary ---
Author Organization Healthcare Address [address] [place] [address] Care Team Providers Care Brazer Crawler Torch Name Role Phone Ashok Baxter MD Primary Care Provider [phone] Pcp, No Primary Care Provider Unavailabl e Encounter Details Date Type Department Care Team (Late st Contact Info) Description 04/10/2025 Orders Only External Location [address] [place] [id number] Provider, External Social History Tobacco Use Types Packs/Day Years [...] week 06/12/2024 How often do you attend chur or sabianist services? Patient unable to answer 06/12/2024 Do you belong to any clubs o r organizations such as latter day groups, unions, fraternal or athletic groups, or [...] Recorded Patient Health Questionnaire-2 Score 0 08/10/2024 [facility] - Occupational [...] place to sleep or slept in a longterm (including now)? No 06/12/2024 PHQ-9 Answer Date [...] drink first t rebekah in the morning (EYE-QUOTE CLERK) to steady your nerves or to get rid of a hangover? 0 06/09/2024 CAGE Questionnaire Score 0 024 Utilities Answer Date Recorded In the past 12 months has th e [employer], gas, oil, or water company threatened to [...] [facility] [address] [facility] 5th Floor [address] [place] [address] Jarred Harmon MD [address] [facility] [address] [place] [address] 07/02/2025 4:00 PM EST Office Visit [facility] [address] [place] [address] Reagan Mcmahon MD [address] [place] [address] documented as of this encounter Procedures Procedure Name Priority Date/Time Associated Diagnosis Comments CT OUTSIDE IMAGES 04/10/2025 9:21 PM EDT documented in this encounter Results * CT OUTSIDE IMAGES (04/10/2025 9:21 PM EDT) Anatomical Region Laterality Modality Computed Tomogra phy 04/10/2025 9:21 PM EDT us External Provider IMG CT PROCEDURES Final Result documented in this encounter Visit Diagnoses Not on filedocumented [...] documented as of this encounter Care Teams Brazer Crawler Torch Relationship Specialty Start Date End Date Ashok Baxter MD [address] [place] [address] PCP - General Family Medicine 08/10/24 04/10/25 [place] [address] PCP - General Family Medicine 04/11/25 documented as of this encounter
--- OUTSIDE RECORDS SUMMARY | 2025-05-21 06:56 | XMS_ITS | Clinical Summary ---
Author Organization [facility] Address [address] [place] [address] Care Team Providers Care All Round Butcher Name Role Phone Provider, No Known Primary Care Provider [phone] Allergies No known active allergies Social History [...] (2 - Td or Tdap) 08/23/2021 08/23/2011 INFLUENZA VACCINE 03/23/2025 08/21/2015 HEPATITIS C SCREENING Completed 06/09/2024 HEMOGLOBIN A1C Discontinued 09/26/2024, 05/23, 01/26/2023, Additional history exists Pneumococcal Vaccine 0-49 Aged Out No longer eligible based on patient's age to complete this topic Insurance [employer] [place]ICA[place] Care Teams All Round Butcher Relationship Specialty Start Date End Date Provider, No Known [facility] [place] [address] PCP - General 01/25/23
--- OUTSIDE RECORDS SUMMARY | 2025-05-21 06:56 | XMS_ITS | Encounter Summary ---
Author Organization Healthcare Address [address] [place] [address] Care Team Providers Care Knitting Machine Fixer Head Name Role Phone Ashok Baxter MD Primary Care Provider [phone] Pcp, No Primary Care Provider Unavailabl e Encounter Details Date Type Department Care Team (Late st Contact Info) Description 04/10/2025 Orders Only External Location [address] [place] [id number] Provider, External Social History Tobacco Use Types [...] How often do you attend chur or uatsdin services? Patient unable to answer 06/12/2024 Do you belong to any clubs o r organizations such as anabaptism groups, unions, fraternal or athletic groups, or [...] Recorded Patient Health Questionnaire-2 Score 0 08/10/2024 [facility] - [...] place to sleep or slept in a senior care (including now)? No 06/12/2024 PHQ-9 Answer Date [...] drink first t rebekah in the morning (EYE-LAB HEAD) to steady your nerves or to get rid of a hangover? 0 06/09/2024 CAGE Questionnaire Score 0 024 Utilities Answer Date Recorded In the past 12 months has th e Prior Knowledge, gas, oil, or water company threatened to [...] Description 05/25/2025 8:00 AM EDT Office Visit [facility] [address] 5th Floor [address] [place] [address] Jarred Harmon MD [address] [facility] [address] [place] [address] 07/02/2025 4:00 PM EST Office Visit [facility] [address] [place] [address] Reagan Mcmahon MD [address] [place] [address] documented as of this encounter Procedures Procedure Name Priority Date/Time Associated Diagnosis Comments CT OUTSIDE IMAGES 04/10/2025 9:23 PM EDT documented in this encounter Results * CT OUTSIDE IMAGES (04/10/2025 9:23 PM EDT) Anatomical Region Laterality Modality Computed [...] documented as of this encounter Care Teams Knitting Machine Fixer Head Relationship Specialty Start Date End Date Ashok Baxter MD [address] [place] [address] PCP - General Family Medicine 08/10/24 04/10/25 [place] [address] PCP - General Family Medicine 04/11/25 documented as of this encounter
--- OUTSIDE RECORDS SUMMARY | 2025-05-21 06:56 | XMS_ITS | Encounter Summary ---
Author Organization Healthcare Address [address] [place] [address] Care Team Providers Care Reclaimer Name Role Phone Ashok aBxter MD Primary Care Provider [phone] Pcp, No Primary Care Provider Unavailabl e Encounter Details Date Type Department Care Team (Late st Contact Info) Description 04/10/2025 Orders Only External Location [address] [place] [id number] Provider, External Social History Tobacco Use Types [...] How often do you attend chur or samaritan services? Patient unable to answer 06/12/2024 Do you belong to any clubs o r organizations such as zoroastrian groups, unions, fraternal or athletic groups, or [...] Recorded Patient Health Questionnaire-2 Score 0 08/10/2024 [facility] - Occupational [...] drink first t rebekah in the morning (EYE-STAND IN) to steady your nerves or to get rid of a hangover? 0 06/09/2024 CAGE Questionnaire Score 0 024 Utilities Answer Date Recorded In the past 12 months has th e klinify, gas, oil, or water company threatened to [...] Description 05/25/2025 8:00 AM EDT Office Visit [facility] [address] 5th [address] [place] [address] Jarred Harmon MD [address] [facility] [address] [place] [address] 07/02/2025 4:00 PM EST Office Visit [facility] [address] [place] [address] Reagan Mcmahon MD [address] [place] [address] documented as of this encounter [...] documented as of this encounter Care Teams Reclaimer Relationship Specialty Start Date End Date Ashok Baxter MD [address] [place] [address] PCP - General Family Medicine 08/10/24 04/10/25 [place] [address] PCP - General Family Medicine 04/11/25 documented as of this encounter
--- OUTSIDE RECORDS SUMMARY | 2025-05-21 06:56 | XMS_ITS | Clinical Summary ---
Author Organization [facility] Address [address] [place] [address] Phone Care Team Providers Care Print Binding And Finishing Worker Name Role Phone Deion Albright MD Primary Care Provider [phone] Deion Albright MD Unavailable [phone] Allergies No known active allergies Medications [...] migh t be different from the original. [facility] - Jarett Arredondo MD Interventional Pain Protocol: Jose report completed (EVERY 3 MONTHS) ( 10/17/2024 ) Pharmacy: [facility] [phone] Spine Center additional info (Transportation, WC, Compound, [...] in past Poorly compliant Sees Endocrinology at [facility], high risk clinic Assessment & Plan (01/19/2025 [...] Refer to Endocrinology with [facility] here at [place], easier to travel here than [place]. Will keep his appt at for now [...] surgery with [facility] Easier than traveling to [place] Is no longer requiring oxycodone, has 2 [...] Plan (01/19/2025 12:52 PM EDT): Continue with [facility] Assessment & Plan (01/18/2025 7:07 [...] without long-term current use of insulin 07/11/2024 Immunizations Immunization Administration Dates Next Due Influenza [...] = 0.6 oz pur e alcohol) rarely [facility] Utilities Answer Date Recorded In the past 12 months has th e Interview Rocket, gas, oil, or water company threatened to shut off services in your home? No 01/18/2025 Overall Financial Resource Strain (CARDIA) Answe r Date Recorded How hard is it for you to pa y for the very basics like food, housing, medical care, and heating? Not hard at all 01/18/2025 PHQ-2 Answer Date Recorded PHQ-2 Total Score 0 01/18/2025 [facility] - Occupational Stress Questionnaire Answer Date Recorded [...] things needed for daily living? No 04/09/2023 [facility] HRSN [facility] IP Transportation Answer D ate Recorded In [...] or Tdap) 08/23/2021 08/23/2011 COVID-19 Vaccine ( - season) 2025 Influenza Vaccine (#1) 2025 08/21/2015 Hemoglobin A1c 10/12/2025 04/11/2025, 03/24, 01/18/2025, Additional history exists Lipids 01/18/2026 01/18/2025, 03/23, 04/22/2016, Additional history exists Kidney Health: eGFR [...] Procedure Name Priority Date/Time Associated Diagnosis Comments BASIC METABOLIC PANEL Early AM 01/19/2025 4:10 AM EDT HEMOGLOBIN A1C Routine 01/18/2025 6:26 AM EDT LIPID SCREEN Routine 01/18/2025 5:14 AM EDT from Last 3 Months or Most Recently Relevant to Health Maintenance Results * (ABNORMAL) BASIC METABOLIC PANEL (01/19/2025 4:10 AM EDT) Sodium 131(L) 136 - 145 mmol/L 01/19/2025 4:39 AM EDT [facility] Potassium 4.3 3.5 - 5.0 mmol/L 01/19/2025 4:39 AM [facility] Chloride 97(L) 98 - 107 mmol/L 01/19/2025 4:39 AM T [facility] Total CO2 25 22 - 29 mmol/L 01/19/2025 4:39 AM EDT [facility] Anion Gap 9 7 - 16 mmol/L 01/19/2025 4:39 AM [facility] Calcium 6.9(L) 8.6 - 10.4 mg/dL 01/19/2025 4:39 AM T [facility] Glucose Lvl 208(H) 70 - 99 mg/dL 01/19/2025 4:39 AM T [facility] BUN 4(L) 6 - 20 mg/dL 01/19/2025 4:39 AM EDT [facility] Creatinine 0.32(L) 0.67 - 1.30 mg/dL 01/19/2025 4:39 AM EDT [facility] eGFR (CKD-EPIcr 2020) 158 >=60 mL/min/1.7 3 m2 01/19/2025 4:39 AM EDT [facility] Comment:Estimated GFR was ca lculated using the CKD-EPIcr (2020) equation refit without race. The equation is recommended by the National Kidney Foundation - [place] Society of Nephrology Task Force. Blood VENOUS BLOOD / Unknown Venipuncture / Unknown 01/19/2025 4:10 AM EDT 01/19/2025 4:15 AM EDT us Jennifer Jj CAT OPERATOR CHEMISTRY ORDERABLES Final R esult [facility] [address] [place] [address] * (ABNORMAL) LIPID SCREEN (01/18/2025 5:14 AM EDT) Cholesterol 103 <200 mg/dL 01/18/2025 6:01 PM EDT [facility] Comment: < 200 Desirable 200 - 239 Borderline High >= 240 High Triglyceride 88 <150 mg/dL 01/18/2025 6:01 PM EDT [facility] Comment: < 150 Normal 150 - 199 Borderline High 200 - 499 High >= 500 Very High HDL 35(L) >=40 mg/dL 01/18/2025 6:01 PM EDT [facility] Comment: > 60 Optimal 40 - 60 Acceptable < 40 Low LDL Calculated 51 <100 mg/dL 01/18/2025 6:01 PM EDT [facility] Comment: < 100 Optimal 100 - 129 Near or above optimal 130 - 159 Borderline High 160 - 189 High >= 190 Very High The National Institutes of Health (NIH) equation is used for all lipid panels that report calculated LDL (LDL-C). Non-HDL-C Calculated 68 <=129 mg/dL 01/18/2025 6:01 PM EDT [facility] Comment: <130 Desirable 130-159 Above Desirable 160-189 Borderline High 190-219 High >= 220 Very High Fasting Specimen? 025 6:01 PM EDT [facility] Blood VENOUS BLOOD / Unknown Venipuncture / Unknown 01/18/2025 5:14 AM EDT 01/18/2025 5:38 AM EDT us Rosalinda Fields CAT OPERATOR CHEMISTRY ORDERABLES Final Resul t [facility] [address] [facility] [place] [address] from Last 3 Months or Most Recently Relevant to Health Maintenance Insurance [place] [place] [id number] [facility] COMMUNITY PLAN [place] MDR Advance Directives For more information, please contact: [phone] * Full Code (Latest Code Status on [...] 12:10 AM 04/25/2016 5:27 PM Care Teams Print Binding And Finishing Worker Relationship Specialty Start Date End Date Deion Albright MD [address] [place] [address] PCP - General Family Medicine 09/12/24 Deion Albright MD [address] [place] [address] Family Medicine 09/12/24
--- NOTE | 2025-05-21 07:03 | XR_ITS ---
FINAL REPORT CLINICAL HISTORY: Shortness of breath COMPARISON: none FINDINGS: The heart size is normal. The mediastinum is normal. There is no focal infiltrate or edema. There are no pleural effusions. There is no pneumothorax. There is no osseous abnormality. IMPRESSION: No acute cardiopulmonary process Reviewed, Interpreted and Dictated by Erwin Montero MD Transcribed by Keke Pablo Authenticated and [facility]
--- NOTE | 2025-05-21 07:05 | ED_ITS ---
Discharge Plan Disposition Patient Disposition: Home, Self-Care Prescriptions Prescriptions: New insulin lispro [Humalog KwikPen Insulin] 100 unit/mL insulin pen See Protocol SQ TID Qty: 15 0RF Protocol: Insulin Corrective Med-Dose Regimen Condition: Fingerstick Blood Glucose Dose/Route: Insulin Units Condition: 151-200 mg/dl Dose/Route: 2 units/SQ Condition: 201-250 mg/dl Dose/Route: 5 units/SQ Condition: 251-300 mg/dl Dose/Route: 8 units/SQ Condition: 301-350 mg/dl Dose/Route: 10 units/SQ Condition: 351-400 mg/dl Dose/Route: 12 units/SQ Condition: 401-450 mg/dl Dose/Route: 15 units/SQ Condition: > 450 mg/dl Dose/Route: CALL MD Protocol Text: Medium Intensity Sliding Scale Insulin Rx Instructions: 15-20 units TID with meals. Max of 75U daily. No Action insulin lispro 100 unit/mL insulin pen See Protocol SQ ACHS Protocol: Insulin Corrective Med-Dose Regimen Condition: Fingerstick Blood Glucose Dose/Route: Insulin Units Condition: 151-200 mg/dl Dose/Route: 2 units/SQ Condition: 201-250 mg/dl Dose/Route: 5 units/SQ Condition: 251-300 mg/dl Dose/Route: 8 units/SQ Condition: 301-350 mg/dl Dose/Route: 10 units/SQ Condition: 351-400 mg/dl Dose/Route: 12 units/SQ Condition: 401-450 mg/dl Dose/Route: 15 units/SQ Condition: > 450 mg/dl Dose/Route: CALL MD Protocol Text: Medium Intensity Sliding Scale Insulin Patient Comments: INJECT 15-20 UNITS BEFORE MEAL(S) THREE TIMES DAILY. MAXIMUM DAILY DOSE OF 75 UNITS insulin glargine [Lantus Solostar U-100 Insulin] 100 unit/mL (3 mL) insulin pen 30 unit SQ DAILY Patient Comments: INJECT 30 UNITS SUBCUTANEOUSLY NIGHTLY (DME) pen needle, diabetic [BD Nadege 2nd Gen Pen Needle] 32 gauge x 5/32 needle MISCELLANEOUS Patient Comments: USE 1 PEN NEEDLE 5 TIMES DAILY Referrals Follow up/Referrals: Irving Duval APRN [Nurse Practitioner, Family Practice] - See instructions Referral Note: uncontrolled diabetes Provider,Referral, [Primary Care Provider, Medical] - See instructions Amy Chambers MD [Staff Physician, Endocrinology] - See instructions Referral Note: uncontrolled diabetes Activity Restrictions/Add. Instructions Additional Instructions/Restrictions: You have been seen and evaluated the emergency department. Please continue glargine and lispro. Please only use the glargine once daily. You can use the lispro with meals and as correction. Follow-up with your PCP. Return to the ED with worsening symptoms. Please ensure that you are eating 3 meals per day and have access to snacks. Clinical Impressions Clinical Impression: Noncompliance with treatment Uncontrolled diabetes mellitus Qualifiers: Diabetes mellitus type: type 1 Glycemic state: with hyperglycemia Qualified Code(s): E10.65 - Type 1 diabetes mellitus with hyperglycemia Instructions Patient Instructions: DI for Hyperglycemia -- Adult Print Language Print Language: Croatian Discharge ED Provider: Petra Licona Adult HPI General Chief complaint: Hyper/Hypoglycemia Stated complaint: diabetic emergency Time Seen by Provider: 05/21/25 06:56 Mode of Arrival: EMS Source of Information: Patient and EMS Description of Symptoms (Recalled from ER Triage Doc. by RN): Pt presents to ED via EMS for hypoglycemia. Pt states at 0430 his BS was 39 and he drank a soda. When EMS arrived, BS was 131. Pt appeared diaphoretic and shaky so EMS brought him in. Pt states he also has a headache that started this morning. Pt is A&O*4 and rates his headache pain 7/10. 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 EMS reports that blood sugar was in the low 30s this morning at 4 AM. Patient states he last took his long-acting insulin yesterday at 3 PM. He has been out of his fast acting insulin for 2 weeks. He states he has attempted to call the original prescribing provider, however has not been able to obtain refills because he needs a prescription. Denies any recent fever, cough, nasal congestion, chest pain, abdominal pain, vomiting, diarrhea, or dysuria. He currently complains of a mild headache. Related Data Home Medications ?Medication ?Instructions ?Recorded ?Confirmed insulin glargine 100 unit/mL (3 30 unit SQ DAILY 05/2105/21/25 mL) subcutaneous pen (Lantus Solostar U-100 Insulin) insulin lispro 100 unit/mL See Protocol SQ ACHS 05/21/25 subcutaneous pen pen needle, diabetic 32 gauge x 05/21/25 05/21/25 Previous Rx's ?Medication ?Instructions ?Recorded insulin lispro 100 unit/mL See Protocol SQ TID #15 mL 05/21/25 subcutaneous pen (Humalog KwikPen (U-100) Insulin) Allergies Allergy/AdvReac Type Severity Reaction Status Date / Time No Known Allergies Allergy Verified 05/21/25 08:32 [facility] Disclaimer: The information contained in this section may have been updated after the patient was seen, as this information can be updated by other users. Medical History Cellulitis of left foot Diabetic ulcer of left foot Diabetes Social History Smoking Status: Unknown if ever smoked alcohol intake: current current occupational status: unemployed Travel in the last 8 weeks?: None Have you lived/traveled outside US in past 30 days?: No Contact w/someone who lives/traveled outside US past 30 days?: No Exposure to someone with infectious disease in past 14 days?: No Do you have a fever (greater than 100.4 F or 38 C)?: No Have you tested positive for COVID-19?: No Exposed to someone with COVID-19 in past 14 days?: No Do you have a sore throat?: No Do you have a cough?: No Do you have any weakness?: No Do you have any diarrhea?: No Are you experiencing any unusual bleeding?: No Do you have any muscle aches/pain?: No Do you have any abdominal pain?: No Are you experiencing loss of taste or smell?: No Other Medical History Have you received the Pneumonia Vaccine: No ROS Obtained: Yes All systems reviewed & no additional complaints except as documented Physical Exam General General appearance: alert Comment: Slightly shaky, however alert, oriented, and interactive Head Head exam: atraumatic Eye Eye exam: Present normal appearance, PERRL and EOMI ENT ENT exam: Present mucous membranes moist Neck Neck exam: Present normal inspection and full ROM; Absent tenderness Chest Chest inspection: Present symmetric chest wall rise; Absent tenderness Respiratory Respiratory exam: Absent respiratory distress, wheezes or accessory muscle use Cardiovascular Cardiovascular exam: Present regular rate and normal rhythm Abdominal Exam Abdominal exam: Present soft; Absent tenderness or guarding Extremities Exam Extremities exam: Present full ROM; Absent tenderness Neurological Exam Neurological exam: Present alert and oriented X3 Psychiatric Psychiatric exam: Present normal affect Skin Skin exam: Present warm and dry Medical Decision Making Medical Records Medical records reviewed: Yes I reviewed the patient's medical records. Screening: Per USPSTF and CDC recommendations, given the prevalence of disease in our region, it is our hospital?s policy to screen for HIV and viral Hepatitis for all patients aged 18 and over and those with ongoing risk factors. Jose Inquiry Pt receiving controlled substance: No Jose was queried for this patient: No Vital Signs: 05/21/25 06:51 05/21/25 07:31 05/21/25 08:01 Temperature 97.6 F Temperature Source Oral Pulse Rate 88 88 Pulse Rate [Left] 86 Respiratory Rate 12 Blood Pressure 140/89 175/96 H Blood Pressure [Right Arm] 132/94 H Blood Pressure Mean 106 122 Blood Pressure Mean [Right Arm] 106 02 Sat by Pulse Oximetry 100 97 97 Oxygen Delivery Method Room Air 05/21/25 08:30 05/21/25 09:00 05/21/25 09:30 Temperature Temperature Source Pulse Rate 88 88 88 Pulse Rate [Left] Respiratory Rate Blood Pressure 143/99 H 137/100 H 157/104 H Blood Pressure [Right Arm] Blood Pressure Mean 113 105 121 Blood Pressure Mean [Right Arm] 02 Sat by Pulse Oximetry 97 97 97 Oxygen Delivery Method 05/21/25 10:00 05/21/25 10:47 Temperature 98.2 F Temperature Source Pulse Rate 88 79 Pulse Rate [Left] Respiratory Rate 20 Blood Pressure 161/96 H 140/80 Blood Pressure [Right Arm] Blood Pressure Mean 112 Blood Pressure Mean [Right Arm] 02 Sat by Pulse Oximetry 97 Oxygen Delivery Method Room Air Lab Data Lab results reviewed: Yes I reviewed the patient's lab results. Lab Results 05/21/25 06:50: WBC 5.9, RBC 4.68, Hgb 13.6 L, Hct 40.6 L, MCV 86.8, MCH 29.1, MCHC 33.5, RDW 12.7, Plt Count 165, MPV 9.8, Neut % (Auto) 56.4, Lymph % (Auto) 28.3, H[place] % (Auto) 11.2 H, Eos % (Auto) 2.9, Baso % (Auto) 0.5, Neut # (Auto) 3.3, Lymph # (Auto) 1.7, [place] # (Auto) 0.7, Eos # (Auto) 0.2, Baso # (Auto) 0.0, VBG pH 7.21 L, VBG pCO2 54.9 H, VBG pO2 33.4, VBG HCO3 21.3 L, VBG Total CO2 23.0, VBG O2 Saturation 55.5, VBG Base Excess -6.6 L, VBG Lactic Acid 1.9, S odium 132 L, Potassium 4.3, Chloride 98, Carbon Dioxide 23, Anion Gap 15.3 H, BUN 9, Creatinine 0.50 L, Estimated Creat Clear 177, Estimated GFR 192, Est GFR ( Amer) 232, Glucose 314 H, Calcium 8.3 L, Total Bilirubin 0.5, AST 121 H , ALT 91 H, Alkaline Phosphatase 230 H, Total Protein 7.8, Albumin 4.0, Globulin 3.8 H, Albumin/Globulin Ratio 1.1, Lipase 22 L, Acetone Level None detected 05/21/25 09:05: Urine Color Yellow, Urine Appearance Clear, Urine pH 5.5, Ur Specific [place] 1.020, Urine Protein 1+ A, Urine Glucose (UA) 3+, Urine Ketones Negative, Urine Blood 2+ A, Urine Nitrate Negative, Urine Bilirubin Negative, Urine Urobilinogen 0.2, Ur Leukocyte Esterase Negative, Urine RBC 3-5, Urine WBC None, Ur Squamous Epith Cells None, Urine Bacteria None 05/21/25 10:27: POC Glucose 245 H 05/21/25 06:50 05/21/25 06:50 Orders (Tests/Meds): ED MEDICATIONS Discontinued Medications Generic Name Dose Route Start Last Admin Trade Name Grzegorzq PRN Reason Stop Dose Admin Acetaminophen 1,000 mg 05/21/25 07:17 05/21/25 08:00 Acetaminophen 1,000mg/100ml Vial IV 05/21/25 07:18 1,000 mg ONCE ONE Administration Lactated Ringer's 1,000 mls @ 999 mls/hr 05/21/25 07:47 05/21/25 10:00 Lactated Ringer's 1000 Ml Bag IV 05/21/25 08:47 Infused .Q1H1M ONE Infusion ORDERS Category Date Time Status Chest XR -- portable [XR chest portable] Stat Exams 05/21/25 07:03 Completed Acetone, Serum (Rapid) Stat Lab 05/21/25 06:50 Completed CBC w/Auto Diff [Complete Blood Count Auto Diff] Stat Lab 05/21/25 06:50 Completed CMP [Comprehensive Metabolic Panel] Stat Lab 05/21/25 06:50 Completed Lipase Stat Lab 05/21/25 06:50 Completed POC Glucose,Bedside Routine Lab 05/21/25 10:27 Completed UA [Urinalysis and Microscopic] Stat Lab 05/21/25 09:05 Completed VBG [Venous Blood Gas] Stat RT 05/21/25 06:50 Completed Medical Decision Narrative: This is a 34-year-old male with history of type 1 diabetes presenting the emergency department via EMS for hypoglycemia. Blood sugar was in the high 30s on EMS arrival. On arrival here in the emergency department, blood sugars in the low 300s. Differential diagnosis includes but is not limited to insulin noncompliance, insulin overdose, underlying infectious etiology including pneumonia, UTI, or intra-abdominal infection, acidosis, DKA, ketosis. On initial assessment, the patient is slightly tremulous, however is awake, alert, and with no focal neurologic deficit. His abdominal exam is benign. He has been out of his lispro and has been attempting to use glargine only as a substitute. He states he has been using glargine twice daily in substitute. CBC shows no leukocytosis or significant anemia. VBG notable for combined metabolic and respiratory acidosis with pH 7.21, CO2 54.9, bicarb 21.3, and lactate 1.9. His hypercarbia is most likely secondary to his recent episode of hypoglycemia causing altered mental status. CMP notable for mild hyponatremia. Anion gap is 15.3, only mildly elevated. Creatinine within normal limits. Glucose 314 on CMP. LFTs are mildly elevated, however this is chronic for the patient. The patient does have a history of documented alcohol abuse, however he denies any recent alcohol use for me. Lipase within normal limits. UA shows negative nitrite, negative leukocyte esterase, no white blood cells, and no bacteria. Chest x-ray with no acute findings on my read. The patient was given 1000 mg of Tylenol in addition to 1 L of lactated Ringer's. [id number] glucose was rechecked prior to discharge, now at 245. I reviewed previous medical records, indicating that patient was prescribed lispro previously with moderate sliding scale dosing. I refilled patient's previous lispro prescription. I confirmed that he has diabetic supplies at home. I confirmed that his glargine supply is adequate. I also confirmed that he has adequate supply of his Keppra at home considering his history of seizure. All questions were answered. Patient was discharged home. He was instructed to administer insulin only as prescribed and to not administer more long-acting insulin than he is supposed to, as hypoglycemia can be dangerous. Critical Care Critical Care Time Critical Care Time: No
[2025-05-21 07:12] LABS: Hematocrit 40.6 % (42.0-52.0); Hemoglobin 13.6 g/dL (14.1-18.0); Immature Granulocytes % 0.7 %; Mean Corpuscular HGB Conc 33.5 g/dL (31.8-35.4); Mean Corpuscular Hemoglobin 29.1 pg (27.0-31.2); Mean Corpuscular Volume 86.8 fl (80-94); Nucleated Red Blood Cells % 0 %; Platelet Count 165 K/mm3 (142-424); Red Blood Count 4.68 M/mm3 (4.60-6.20); Red Cell Distribution Width-SD 39.8 fL; White Blood Count 5.9 K/mm3 (4.8-10.8)
[2025-05-21 07:19] LABS: Alanine Aminotransferase 91 U/L (12-78); Albumin Level 4.0 g/dl (3.5-5.0); Albumin/Globulin Ratio 1.1 (1.1-1.8); Alkaline Phosphatase 230 U/L (38-126); Anion Gap 15.3 mEq/L (5-15); Aspartate Amino Transferase 121 U/L (17-59); Bilirubin,Total 0.5 mg/dl (0.2-1.3); Blood Urea Nitrogen 9 mg/dl (9-20); Calcium 8.3 mg/dl (8.4-10.2); Carbon Dioxide 23 mmol/L (22.0-30.0); Chloride 98 mmol/L (98-107); Creatinine Clearance Estimated 177 mL/min (50-200); Creatinine,Serum 0.50 mg/dl (0.66-1.25); Estimated Glomerular Filt Rate 192 ml/min (>60); GFR (African American) 232 ML/MIN (>60); Globulin 3.8 g/dL (1.3-3.2); Glucose 314 mg/dl (74-100); Lipase 22 U/L (23-300); Potassium 4.3 mmoL/L (3.5-5.1); Sodium 132 mmol/L (136-145); Total Protein,Serum 7.8 g/dl (6.3-8.2)
[2025-05-21 07:24] LABS: Lactate Venous 1.9 mmol/L (0.4-2.0); VBG HCO3 21.3 mmol/L (23-30); VBG PCO2 54.9 mmol/L (35-51); VBG PH 7.21 mmol/L (7.31-7.41); VBG PO2 33.4 mmol/L (28-40)
[2025-05-21] MEDS: LACTATED RINGERS 1000ML 1,000 ML 999 ML IV (08:00)
[2025-05-21] MEDS: ACETAMINOPHEN 1,000MG/100ML VIAL 1000 MG IV (08:00)
[2025-05-21 08:07] LABS: Acetone, Serum (Rapid) None Detected (None Detect)
[2025-05-21 09:11] LABS: Microscopic, Urine URINE MICROSCOPIC (MICROSCOPIC)
[2025-05-21 09:23] LABS: Bilirubin,Urine Negative (Negative); Color,Urine YELLOW (Yellow); Glucose,Urine (UA) 3+ (Negative); Ketones,Urine Negative (Negative); Leukocyte Esterase,Urine Negative (Negative); PH,Urine 5.5 (5.0-8.5); Protein,Urine 1+ (Negative); Specific Gravity, Urine 1.020 (1.005-1.030); Urobilinogen,Urine 0.2 EU/dl (0.2)
[2025-05-21 10:34] LABS: POC Glucose,Bedside 245 gm/dL (70-110)
== END 2025-05-21 11:05 | disposition home or self-care (01) ==
PROVIDERS: Emergency Provider Student in an Organized Health Care Education/Training Program
DX: E10.65 Type 1 diabetes mellitus with hyperglycemia (principal); E87.21 Acute metabolic acidosis; E87.29 Other acidosis; E87.1 Hypo-osmolality and hyponatremia; R25.1 Tremor, unspecified
CPT/HCPCS: 71045; 80053; 81001; 82009; 82803; 82962; 83690; 85025; 96361; 96374; 99285; J0131; J7120